=== PATIENT | female | born 1970 | race American Indian/Alaskan Native ===

== ENCOUNTER 2016-12-11 08:34 | Outpatient (CLI) | payer MEDICARE ==
--- NOTE | 2016-12-11 16:19 | PET Report ---
PET/CT:12/11/16 08:34:00 CLINICAL: Breast cancer restaging. RADIOPHARMACEUTICAL: 12.4mCi F18-FDG. COMPARISON: 07/10/16 PET/CT TECHNIQUE- Following intravenous injection of F-18 FDG and an approximately 60 minute uptake period, CT and PET images from the mid skull to the upper thighs were acquired with the patient in the fasted state. No contrast was administered. The CT protocol used for this PET CT study is designed for attenuation correction and anatomic localization of PET abnormalities. This arts administrator or manager CT is not desired to produce and cannot replace, [id number]-[id number]-art diagnostic CT scans with specific imaging protocols for different body parts and indications. Plasma glucose at the time of this test: 109g/dl. The standardized uptake values (SUV) are normalized to patient body weight and indicate the highest activity concentration (SUV max) in a given disease site. FINDINGS: Brain--Physiologic FDG uptake in the visualized regions of the brain. Neck--Physiologic FDG uptake . Chest--Physiologic FDG uptake in mediastinal blood pool and myocardium. Lungs/Pleura/pericardium--New FDG avid pleural-based left upper lobe lung masses with SUV 6.1. New large left pleural effusion. Thoracic nodes--No abnormal uptake. Hepatobiliary--No abnormal uptake. Liver background SUV mean, as a reference for comparing FDG studies, is 4.0 compared to 4.0 on the last exam. No liver mass. Spleen--No abnormal uptake. Pancreas--No abnormal uptake. Adrenal Glands--No abnormal uptake. Kidneys/Ureters/Bladder--No abnormal uptake. Abdominopelvic Nodes--New FDG avid moon hepatis lymphadenopathy. The largest lymph node measures 3.4 x 2.8 cm with SUV 8.4. A second lymph node measures 2.8 x 2.0 cm with SUV 6.2. New para-aortic FDG avid lymphadenopathy with SUV 5.9. Bowel/Peritoneum/Mesentery--No abnormal uptake. Pelvic organs--No abnormal uptake. Bones/Soft Tissues--Previously described bone lesions are radiographically stable. However, new FDG uptake in the sternum and in several vertebral bodies. T4 SUV 6.3, T9 SUV 5.2, and L5 SUV 9.9. 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 New FDG avid retroperitoneal rodolfo metastasis and new FDG avid skeletal lesions.
== END 2016-12-11 08:35 | disposition home or self-care (01) ==
LOC: PET 08:34
PROVIDERS: ATTEND Internal Medicine Hematology & Oncology
DX: C78.02 Secondary malignant neoplasm of left lung (principal); R21 Rash and other nonspecific skin eruption
CPT/HCPCS: 78815; 82962; A9552

== ENCOUNTER 2017-01-02 11:29 | Inpatient (IN) | payer MEDICARE ==
[2017-01-02 12:23] LABS: Basophils % (Auto) 0.1 % (0.0-1.8); Eosinophils % (Auto) 0.2 % (0.0-4.3); Hematocrit 30.8 % (30.3-42.9); Hemoglobin 9.8 gm/dl (10.1-14.3); Mean Corpuscular HGB Conc 32 % (30-34); Mean Corpuscular Hemoglobin 29 pg (28-32); Mean Corpuscular Volume 90 fl (79-97); Red Blood Count 3.41 M/mm3 (3.65-5.03); White Blood Count 5.4 K/mm3 (4.5-11.0)
[2017-01-02 12:26] LABS: Red Cell Distribution Width 21.5 % (13.2-15.2)
[2017-01-02 12:43] LABS: Anion Gap 24 mmol/L; Blood Urea Nitrogen 8 mg/dL (7-17); Carbon Dioxide 20 mmol/L (22-30); Chloride 96.2 mmol/L (98-107); Glucose 92 mg/dL (65-100); Potassium 3.4 mmol/L (3.6-5.0); Sodium 137 mmol/L (137-145)
[2017-01-02 13:02] LABS: Platelet Count 54 K/mm3 (140-440)
--- NOTE | 2017-01-02 14:56 | XRay Report ---
CHEST 2 VIEWS INDICATION: Pain. COMPARISON: None similar. FINDINGS: Frontal and lateral chest radiographs demonstrate hazy left lung opacity/layering fluid, greatest at the base and relatively sparing the apex. Left hemidiaphragm much obscured. Right hemidiaphragm slightly elevated. Clear right lung. Normal cardiomediastinal silhouette. Right chest port tip near the cavoatrial junction, left axillary surgical clips and bilateral breast implants noted. EKG leads. Grossly unremarkable bones. CONCLUSION: Hazy left lung opacity/fluid and other findings, as described. Thank you for the opportunity to participate in this patient's care.
--- NOTE | 2017-01-02 15:41 | Emergency Department Report ---
HPI - General Chief Complaint: Chest Pain Time Seen by Provider: 01/02/17 14:48 - HPI HPI: Room 9 The patient is a 46-year-old female presenting with a chief complaint of chest pain shortness of breath. The patient has a history of breast CVA with brain metastases. Patient is currently on chemotherapy and last received chemotherapy 4 days ago. The patient states she has had nausea vomiting for the past week. Patient was scheduled to receive chemotherapy today however when she arrived she was told that her platelet count was low (53,000) oh subsequently only given IV fluids and antiemetics. Patient states she developed palpitations and chest pain associated with shortness of breath. Patient denies nausea/vomiting or diaphoresis. The patient states his symptoms lasted approximately 30 minutes. The patient states she's never had a stress test or cardiac catheterization Location: Chest, lungs Duration: 30 minutes Quality:. Pain Severity: Moderate Modifying factors: [see above] Context: [see above] Mode of transportation: [not driving] ED Past Medical Hx - Past Medical History Previous Medical History?: Yes Hx Hypertension: Yes (does not take medication for this) Hx of Cancer: Yes (Breast with mets to Brain) - Surgical History Past Surgical History?: Yes Hx Breast Surgery: Yes (Double mastectomy) - Family History Family history: no significant - Social History Smoking Status: Never Smoker Substance Use Type: None - Medications Home Medications: Home Medications Medication Instructions Recorded Confirmed Last Taken Type Ibuprofen [Motrin 800 MG tab] 800 mg PO Q8H PRN 01/02/17 01/02/17 Unknown History Morphine ER [Ms Contin ER] 30 mg PO BID 01/02/17 01/02/17 Unknown History Ondansetron [Zofran TAB] 8 mg PO Q8H PRN 01/02/17 01/02/17 Unknown History Promethazine [Phenergan TAB] 25 mg PO Q6H PRN 01/02/17 01/02/17 Unknown History ED Review of Systems ROS: Stated complaint: CHEST TIGHTNESS/L SIDE NUMBNESS Other details as noted in HPI Comment: All other systems reviewed and negative Constitutional: denies: chills, fever Eyes: denies: eye pain, eye discharge, vision change ENT: denies: ear pain, throat pain Respiratory: shortness of breath Cardiovascular: chest pain, palpitations Endocrine: no symptoms reported Gastrointestinal: nausea, vomiting Genitourinary: denies: urgency, dysuria, discharge Musculoskeletal: denies: back pain, joint swelling, arthralgia Skin: denies: rash, lesions Neurological: denies: headache, weakness, paresthesias Psychiatric: denies: anxiety, depression Hematological/Lymphatic: denies: easy bleeding, easy bruising Physical Exam - Physical Exam Vital Signs: Vital Signs 01/02/17 01/02/17 11:50 11:59 Pulse Rate 109 H Respiratory 16 16 Rate Blood Pressure 134/84 Blood Pressure 134/84 [Left] O2 Sat by Pulse 98 98 Oximetry Physical Exam: GENERAL: The patient is well-developed well-nourished female lying on stretcher not appearing to be in acute distress. [] HEENT: Normocephalic. Atraumatic. Extraocular motions are intact. Patient has moist mucous membranes. NECK: Supple. Trachea midline CHEST/LUNGS: Clear to auscultation. There is no respiratory distress noted. HEART/CARDIOVASCULAR: Regular. There is no tachycardia. There is no gallop rub or murmur. ABDOMEN: Abdomen is soft, nontender. Patient has normal bowel sounds. There is no abdominal distention. SKIN: There is no rash. There is no edema. There is no diaphoresis. NEURO: The patient is awake, alert, and oriented. The patient is cooperative. The patient has normal speech MUSCULOSKELETAL: There is no evidence of acute injury. ED Course Vital Signs 01/02/17 01/02/17 11:50 11:59 Pulse Rate 109 H Respiratory 16 16 Rate Blood Pressure 134/84 Blood Pressure 134/84 [Left] O2 Sat by Pulse 98 98 Oximetry ED Medical Decision Making - Lab Data Result diagrams: 01/02/17 12:09 01/02/17 12:09 Laboratory Tests 01/02/17 01/02/17 01/02/17 12:09 12:09 14:49 WBC 5.4 RBC 3.41 L Hgb 9.8 L Hct 30.8 MCV 90 MCH 29 MCHC 32 RDW 21.5 H Plt Count 54 L Lymph % (Auto) 10.5 L [place] % (Auto) 12.1 H Eos % (Auto) 0.2 Baso % (Auto) 0.1 Lymph # 0.6 L [place] # 0.7 Eos # 0.0 Baso # 0.0 Seg Neutrophils % 77.1 H Seg Neutrophils # 4.2 Sodium 137 Potassium 3.4 L Chloride 96.2 L Carbon Dioxide 20 L Anion Gap 24 BUN 8 Creatinine 0.8 Estimated GFR > 60 BUN/Creatinine Ratio 10.00 Glucose 92 Calcium 7.0 L Troponin T < 0.010 0.017 - EKG Data -: EKG Interpreted by Me EKG shows normal: sinus rhythm Rate: normal - EKG Data When compared to previous EKG there are: previous EKG unavailable Interpretation: nonspecific ST-T wave robel (T-wave inversions in leads V2, V3) - Radiology Data Radiology results: report reviewed (, VQ scan), image reviewed (chest x-ray, VQ scan) interpreted by me: Chest x-ray-left lower lobe haziness. No pneumothorax VQ scan (read by radiologist)-low probability - Differential Diagnosis ACS, PE, pericarditis, pneumothorax, pleural effusion Critical care attestation.: If time is entered above; I have spent that time in minutes in the direct care of this critically ill patient, excluding procedure time. ED Disposition Clinical Impression: Chest pain, Pleural effusion, T wave inversion in EKG Disposition: OP ADMITTED IP TO THIS HOSP Is pt being admited?: Yes Does the pt Need Aspirin: Yes Condition: Fair Instructions: Chest Pain (ED) Referrals: PRIMARY CARE, [Primary Care Provider] - 3-5 Days Time of Disposition: 18:52 (hospitalist paged)
--- NOTE | 2017-01-02 17:35 | Admit Criteria Form ---
Admission Criteria Documentation: CARDIOLOGY GRG Clinical Indications for Admission to Inpatient Care ( Place 'X' for any and all applicable criteria): Hospital admission is needed for appropriate care of the patient because of ANY ONE of the following (1): [ ] I. Hemodynamic instability as indicated by ALL of the following (1)(2)(3) (4)(5) [ ]a) Vital signs or other findings not as expected for chronic patient condition or baseline [ ]b) Instability indicated by ANY ONE of the following: [ ]i) Hypotension [ ]ii) Symptomatic Tachycardia unresponsive to treatment ( e.g., analgesia, fluids, sedation as indicated) [ ]iii) Inadequate perfusion indicated by ANY ONE of the following: [ ] 1) Lactic acidosis (> 2 mmol/L) [ ] 2) New abnormal capillary refill (> 3 seconds) [ ] 3) Reduced urine output [ ] 4) New altered mental status [ ]iv) Orthostatic vital sign changes unresponsive to treatment (e.g., fluids) [ ]v) IV inotropic or vasopressor medication required to maintain adequate blood pressure or perfusion [ ] II. Severe heart failure as indicated by ANY ONE of the following(17)(18) [ ]a) Respiratory distress [ ]b) Hypotension [ ]c) Anasarca (refractory to outpatient therapy) [ ]d) Cardiac arrhythmias of immediate concern [ ]e) Myocardial ischemia [ ] III. Cardiac arrhythmias or findings of immediate concern indicated by ANY ONE of the following (19)(20): [ ] a) Heart rhythms that are inherently dangerous or unstable indicated by ANY ONE of the following (21)(22)(23): [ ] i) Resuscitated ventricular fibrillation or cardiac arrest [ ] ii) Ventricular escape rhythm [ ] iii) Sustained ventricular tachycardia (30 seconds or more of ventricular rhythm at greater than 100 beats per minute) [ ] iv) Nonsustained ventricular tachycardia and ANY ONE of the following: [ ] 1) Suspected cardiac ischemia as cause or consequence of ventricular tachycardia [ ] 2) In setting of acute myocarditis [ ] b) Unstable cardiac conduction defects indicated by ANY ONE of the following(23)(24)(25) [ ] i) Type II second-degree atrioventricular block [ ]ii) Third-degree atrioventricular block [ ]iii) New-onset left bundle branch block with suspected myocardial ischemia [ ]c) Any heart rhythm and ANY ONE of the following (21)(22)(26)(27) (28) [ ] i) Continuous long-term ECG monitoring needed (e.g., initiation of drug requiring monitoring for more than 24 hours) [ ] ii) Patient has automatic implanted cardioverter defibrillator that is repeatedly firing, malfunctioning, or in need of immediate adjustment of settings beyond the scope of ambulatory or observation care [ ]d) Heart rhythms of concern due to ANY ONE of the following: [ ] i) Hypotension [ ] ii) Respiratory distress [ ] iii) Association with other significant symptoms (e.g., bradycardia with syncope or ongoing dizziness, supraventricular tachycardia with chest pain (14)(15)(17) [ ] IV. Monitoring for cardiac contusion beyond the scope of observation care needed [A](30)(31)(32) [ ] V. Surgical or device complication (e.g., valve replacement complication , pacemaker dysfunction) (35)(41)(44)(45)(46) [ ] . Inpatient palliative care needed. [B](49) Also use Inpatient Palliative Care Criteria [ ] VII. Nonbacterial thrombotic (marantic) endocarditis (36)(43)(47)(48) [X] VIII. Cardiology condition, symptom, or finding for which emergency and observation care has failed or are not considered appropriate. [ ] IX. Acute valvular disease requiring inpatient as indicated by ANY ONE of the following (41) [ ]a) Acute valvular regurgitation (42) [ ]b) Noninfectious valvulitis (43) [ ]c) Obstructive valve thrombosis [ ]d) Paravalvular leak [ ]e) Other significant valvular disorder remaining after emergency or observation level of care (as appropriate) [ ]X. Pericardial disease requiring inpatient treatment as indicated by ANY ONE of the following (33)(34)(35)(36)(37) [ ]a) Suspected tamponade (38)(39)(40) [ ]b) Hemopericardium [ ]c) Other significant pericardial disorder remaining after emergency or observation level of care (as appropriate) [ ] XI. Cardiac ischemia beyond scope of emergency and observation care. [ ] XII. Hypertension requiring inpatient treatment as indicated by ANY ONE of the following (6)(7)(8) [ ]a) SBP greater than 220 mm Hg or DBP greater than 120 mmHg despite treatment [ ]b) SBP greater than 140 mm Hg or DBP greater than 100 mm Hg with evidence of acute end organ damage as indicated by ANY ONE of the following [ ] i) Altered mental status [ ] ii) Acute renal failure as indicated by new onset of ANY ONE of the following (9)(10)(11)(12)(13) [ ]1) 3-fold rise in serum creatinine from baseline [ ]2) Serum creatinine greater than 4 mg/dL ( 354 micromoles/L) with acute rise greater than 0.5 mg/dL (44.2 micromoles/L) [ ]3) Reduction of more than 75% in estimated glomerular filtration rate from baseline [ ]4) Estimated glomerular filtration rate less than 35 mL/min/1.73m2 (0.59 mL/sec/1.73m2) in child up to 18 years of age [ ]5) Cessation of urine output indicated by ALL of the following [ ]A. Adequate volume status [ ]B. Inadequate urine output as indicated by ANY ONE of the following [ ]a. Urine output less than 0.3 mL/kg/hr for 24 hours [ ]b. Anuria (urine output less than 0.1 mL/kg/hr) for 12 hours [ ] iii) Aortic dissection [ ] iv) Myocardial Ischemia [ ] v) Left ventricular heart failure [ ]vi) Retinal Hemorrhage [ ]vii) Other significant finding [ ]c) Hypertension in child requiring inpatient treatment as indicated by ALL of the following(14)(15)(16) [ ] i) Outpatient treatment not effective, not available, or not appropriate [ ]ii) SBP or DBP greater than 95th percentile for age [ ]iii) Evidence of acute end organ damage as indicated by ANY ONE of the following [ ]1) Altered mental status [ ]2) Acute renal failure as indicated by new onset of ANY ONE of the following(9)(10)(11)(12)(13) [ ]A. 3-fold rise in serum creatinine from baseline [ ]B. Serum creatinine greater than 4 mg/dL (354 micromoles/L) with acute rise greater than 0.5 mg/dL (44.2 micromoles/L) [ ]C. Reduction of more than 75% in estimated glomerular filtration rate from baseline [ ]D. Estimated glomerular filtration rate less than 35 mL/min/1.73m2 (0.59 mL/sec/1.73m2) in child up to 18 years of age [ ]E. Cessation of urine output indicated by ALL of the following [ ]a. Adequate volume status [ ]b. Inadequate urine output as indicated by ANY ONE of the following [ ]i) Urine output less than 0.3 mL/kg/hr for 24 hours [ ]ii) Anuria ( urine output less than 0.1 mL/kg/hr) for 12 hours [ ]3) Severe headache [ ]4) Visual disturbance [ ]5) Retinal hemorrhage [ ]6) Other significant finding [ ]XIII. Complications of transplanted heart indicated by ANY ONE of the following(61): [ ]a) Acute graft rejection requiring inpatient management (eg, intravenous immunosuppression)(62)(63) [ ]b) Acute graft heart failure indicated by ANY ONE of the following(64): [ ]i) Hemodynamic instability [ ]ii) Cardiac arrhythmias of immediate concern [ ]iii) Pulmonary edema that is very severe (eg, mechanical ventilation needed, imminent or likely, need for 100% oxygen to keep oxygen saturation above 90%) [ ]iv) Pulmonary edema that is persistent as indicated by ALL of the following: [ ]1) New need for oxygen therapy to keep oxygen saturation above 90% (or increased FiO2 need from baseline) [ ]2) Has not improved sufficiently with emergency department or observation care IV diuretics or other heart failure treatments[E] [ ]v) Altered mental status that is severe or persistent [ ]vi) Increased creatinine (new on laboratory test) with reduction of more than 50% in estimated glomerular filtration rate from baseline [ ]vii) Progressively (ongoing) rising creatinine (known from past laboratory test) with reduction of more than 25% in estimated glomerular filtration rate from baseline [ ]viii) Acute renal failure [ ]ix) Acute peripheral ischemia (eg, examination shows pulseless, cool, mottled, or cyanotic extremity) [ ]x) Pulmonary artery catheter monitoring needed [ ]xi) Other sign or symptom of heart failure requiring inpatient treatment (ie, too severe or not responsive to outpatient and observation care treatment) [ ]c) Infection requiring inpatient management (eg, Hemodynamic instability, need for intravenous antimicrobial treatment)(66)(67)(68)(69)(70) [ ]d) Cardiac allograft vasculopathy requiring inpatient management ( eg evidence of cardiac ischemia)(71) [ ]e) Other complication of transplanted heart (eg, stroke, severe pulmonary hypertension, severe valvular dysfunction) requiring inpatient management(72) The original [facility] [employer] content created by [employer] has been revised. The portions of the content which have been revised are identified through the use of italic text or in bold, and [facility] has neither reviewed nor approved the modified material. All other unmodified content is copyright [facility] [employer]. Please see references footnoted in the original [facility] [employer] edition 2016 Admission Criteria Met: Yes
--- NOTE | 2017-01-02 18:49 | Nuclear Medicine Report ---
FINAL REPORT EXAM: NM LUNG SCAN PERF/VENT HISTORY: chest pain, shortness of breath . Prior history of breast cancer. Recent thoracentesis 1 week ago. TECHNIQUE: Ventilation imaging was performed in the posterior projection. Perfusion imaging of the lungs was performed in multiple planar projections. Correlation with a chest x-ray dated 01/02/2017 was made. DOSE: 15.0 millicuries Xe-133 gas; 5.0 millicuries 99m Tc MAA given IV. PRIORS: None. FINDINGS: There is a nonsegmental defect in the left posterior lung base consistent with a pleural effusion seen on x-ray. Otherwise, the tracer distribution on perfusion imaging is homogeneous throughout. No unmatched segmental or subsegmental perfusion defects are identified to suggest the presence of pulmonary embolism. Incidental note is made of rounded with repeat defects in the anterior projection only each corresponding to the bilateral breast implants on the chest x-ray. The ventilation study is also homogeneous and within normal limits. No evidence for gas trapping is seen. IMPRESSION: Low probability v/Q scan. A nonsegmental perfusion defect in the left posterior lung inch base is likely associated with the pleural effusion seen on x-ray.
[2017-01-02] MEDS ORDERED: ASPIRIN PO ONE (18:52)
[2017-01-02] MEDS ORDERED: NITRO-BID 2% TP ONE (18:57)
--- NOTE | 2017-01-03 05:16 | Event Note ---
Date: 01/02/17 See H/p in reports Persistent vomiting Chest pain L -Breast ca followed by bilateral mastectomy On Chemotherapy and XRT Hypokalemia
[2017-01-03] MEDS ORDERED: DILAUDID IV PRN (05:24)
[2017-01-03] MEDS ORDERED: ZOFRAN IV PRN (05:24)
[2017-01-03] MEDS ORDERED: SODIUM CHLORIDE FLUSH SYRINGE 10 ML IV PRN (05:25)
[2017-01-03] MEDS ORDERED: D5NS 1,000 ML IV SCH (06:00)
--- NOTE | 2017-01-03 07:29 | History and Physical Report ---
CHIEF COMPLAINT: 1. Nausea, vomiting. 2. Left-sided chest pain. 3. Shortness of breath. HISTORY OF PRESENT ILLNESS: This is a 46-year-old female with breast cancer, with bilateral mastectomy, undergoing chemotherapy and radiation therapy, who comes in for increasing shortness of breath and left-sided Chest pain. Also, nausea, and vomiting 3-4 times since a.m. The patient is currently on chemotherapy and received chemotherapy 4 days ago. The patient has been having nausea and vomiting for the past one week. Vomiting over 3-4 times. Also developed retrosternal chest pain secondary to vomiting. The patient feels that she is dehydrated. No fever, no chills. PAST MEDICAL HISTORY: Significant for left breast cancer with metastasis to the brain. Bilateral mastectomy. PAST SURGICAL HISTORY: Bilateral mastectomy. FAMILY HISTORY: None significant. SOCIAL HISTORY: Does not smoke. No alcohol, no recreational drugs. CURRENT MEDICATIONS: Morphine 30 mg twice a day, ibuprofen 800 mg p.o. q.8h., Zofran 8 mg p.o. q.8h p.r.n. REVIEW OF SYSTEMS: GENERAL: The patient has weight loss and nausea and vomiting, associated also with retrosternal chest pain. Otherwise, review of systems is essentially negative. All systems reviewed. PHYSICAL EXAMINATION: GENERAL: Middle-aged female, cooperative during examination. VITAL SIGNS: Blood pressure is 127/89, temperature is 98, pulse is 70, respirations are 16. HEENT: Dry mucous membranes. NECK: Supple, no lymphadenopathy, no thyromegaly. LUNGS: Clear to auscultation and percussion. Good air entry. CARDIOVASCULAR: S1, S2 heard. No gallop, no murmur, no rub. Apical impulse in left fifth intercostal space and midclavicular line. ABDOMEN: Soft and benign. No hepatosplenomegaly. No guarding, no rigidity. Hernial orifices are normal. EXTREMITIES: Good pedal pulses. No pedal edema. CENTRAL NERVOUS SYSTEM: Alert and oriented x 4, nonfocal exam. LABORATORY DATA: Significant for white count of 5400, H and H is 9.8 and 30.8, platelet count is 54,000. Potassium is 3.4, calcium is 1.0, BUN and creatinine are 8 and 0.8. Chest x-ray shows normal chest x-ray with left lower lobe haziness present. Electrolytes are normal. ASSESSMENT AND PLAN: 1. Chest pain, rule out myocardial infarction, chest pain protocol. 2. Left lower lobe pneumonia. IV antibiotics. 3. Dehydration secondary to persistent vomiting. IV fluids. 4. Breast cancer, as per oncology. Will be treated as outpatient. 5. DVT prophylaxis, Lovenox 40 mg subcutaneous daily. JOB# [id number] VSM/NTS
[2017-01-03 08:04] LABS: Creatine Kinase 92 units/L (30-135)
[2017-01-03] MEDS: LEVAQUIN 750MG/150ML 750 MG/150 ML BAG IV SCH (11:57)
--- NOTE | 2017-01-03 12:59 | Progress Note ---
Assessment and Plan Assessment and plan: Star is a 46-year-old woman with metastatic Breast ca with brain mets, on chemotherapy who presents with chest pain found to have pneumonia 1. Chest pain Most likely due to pneumonia, VQ scan low probability for embolus, Stress test shows partially fixed apical defect, obtain cardiology consult 2. Pneumonia Continue Levaquin 3. Thrombocytopenia This is most likely due to toxicity from chemotherapy, continue to monitor platelet counts, it is recovering Avoid blood thinners, give SCDs 4. Hypokalemia Replete and recheck History Interval history: She has slight chest pressure in in left chest, it is improving Hospitalist Physical - Physical exam Narrative exam: General: Patient appears well in no distress HEENT: MMM, EOMI cardiac: S1-S2 heard lungs: clear to auscultation, abdomen: soft, nontender, nondistended bowel sounds positive extremities: LUE lymphedema, Skin: hyperpigmented rash on Left arm and left breast Neuro: no focal deficit Psych: appropriate behavior and mood, cognition intact - Constitutional Vitals: Temp Pulse Resp BP Pulse Ox 98.4 F 80 18 92/58 98 01/03/17 08:50 01/03/17 08:50 01/03/17 08:50 01/03/17 08:50 01/03/17 10:37 Results - Labs CBC & Chem 7: 01/04/17 06:00 01/04/17 06:00 Labs: Laboratory Last Values WBC 5.4 K/mm3 (4.5-11.0) 01/02/17 12:09 RBC 3.41 M/mm3 (3.65-5.03) L 01/02/17 12:09 Hgb 9.8 gm/dl (10.1-14.3) L 01/02/17 12:09 Hct 30.8 % (30.3-42.9) 01/02/17 12:09 MCV 90 fl (79-97) 01/02/17 12:09 MCH 29 pg (28-32) 01/02/17 12:09 MCHC 32 % (30-34) 01/02/17 12:09 RDW 21.5 % (13.2-15.2) H 01/02/17 12:09 Plt Count 54 K/mm3 (140-440) L 01/02/17 12:09 Lymph % (Auto) 10.5 % (13.4-35.0) L 01/02/17 12:09 [place] % (Auto) 12.1 % (0.0-7.3) H 01/02/17 12:09 Eos % (Auto) 0.2 % (0.0-4.3) 01/02/17 12:09 Baso % (Auto) 0.1 % (0.0-1.8) 01/02/17 12:09 Lymph # 0.6 K/mm3 (1.2-5.4) L 01/02/17 12:09 [place] # 0.7 K/mm3 (0.0-0.8) 01/02/17 12:09 Eos # 0.0 K/mm3 (0.0-0.4) 01/02/17 12:09 Baso # 0.0 K/mm3 (0.0-0.1) 01/02/17 12:09 Seg Neutrophils % 77.1 % (40.0-70.0) H 01/02/17 12:09 Seg Neutrophils # 4.2 K/mm3 (1.8-7.7) 01/02/17 12:09 Sodium 137 mmol/L (137-145) 01/02/17 12:09 Potassium 3.4 mmol/L (3.6-5.0) L 01/02/17 12:09 Chloride 96.2 mmol/L (98-107) L 01/02/17 12:09 Carbon Dioxide 20 mmol/L (22-30) L 01/02/17 12:09 Anion Gap 24 mmol/L 01/02/17 12:09 BUN 8 mg/dL (7-17) 01/02/17 12:09 Creatinine 0.8 mg/dL (0.7-1.2) 01/02/17 12:09 Estimated GFR > 60 ml/min 01/02/17 12:09 BUN/Creatinine Ratio 10.00 % 01/02/17 12:09 Glucose 92 mg/dL (65-100) 01/02/17 12:09 Calcium 7.0 mg/dL (8.4-10.2) L 01/02/17 12:09 Total Creatine Kinase 92 units/L (30-135) 01/03/17 05:25 CK-MB (CK-2) 3.0 ng/mL (0.0-4.0) 01/03/17 05:25 CK-MB (CK-2) Rel Index 3.2 (0-4) 01/03/17 05:25 Troponin T < 0.010 ng/mL (0.00-0.029) 01/03/17 05:25
[2017-01-03] MEDS ORDERED: TYLENOL PO PRN (16:15)
[2017-01-03] MEDS: PROTONIX PO SCH (17:03)
[2017-01-03] MEDS: MS CONTIN ER PO SCH (23:51)
[2017-01-04 06:55] LABS: Basophils % (Auto) 0.3 % (0.0-1.8); Eosinophils % (Auto) 0.4 % (0.0-4.3); Hematocrit 27.9 % (30.3-42.9); Hemoglobin 8.9 gm/dl (10.1-14.3); Mean Corpuscular HGB Conc 32 % (30-34); Mean Corpuscular Hemoglobin 29 pg (28-32); Mean Corpuscular Volume 90 fl (79-97); Red Blood Count 3.11 M/mm3 (3.65-5.03); White Blood Count 4.1 K/mm3 (4.5-11.0)
[2017-01-04 06:59] LABS: Platelet Count 76 K/mm3 (140-440); Red Cell Distribution Width 21.6 % (13.2-15.2)
[2017-01-04 07:14] LABS: Anion Gap 23 mmol/L; BUN/Creatinine Ratio 8.57; Blood Urea Nitrogen 6 mg/dL (7-17); Calcium 6.8 mg/dL (8.4-10.2); Carbon Dioxide 21 mmol/L (22-30); Chloride 99.3 mmol/L (98-107); Glucose 75 mg/dL (65-100); Magnesium 1.8 mg/dL (1.7-2.3); Potassium 3.3 mmol/L (3.6-5.0); Sodium 140 mmol/L (137-145)
[2017-01-04] MEDS ORDERED: LEXISCAN IV ONE ×2 (08:10→08:38)
[2017-01-04] MEDS: LEVAQUIN 750MG/150ML 750 MG/150 ML BAG IV SCH (10:53)
[2017-01-04] MEDS: K-DUR PO SCH (10:54)
[2017-01-04] MEDS: PROTONIX PO SCH (10:55)
[2017-01-04] MEDS: MS CONTIN ER PO SCH ×2 (10:55→22:03)
--- NOTE | 2017-01-04 12:09 | Treadmill Report ---
NUCLEAR STRESS TEST REPORT DESCRIPTION OF PROCEDURE: The patient is brought to the Cardiology lab. The patient had a nuclear stress test with administration of Lexiscan, which he tolerated well. Post-stress images reveal fairly homogeneous perfusion except in the apex as well as mildly in the mid anterior wall. There is minimal improvement noted during rest. Accompanying gated study shows excellent systolic function with a calculated ejection fraction of 70%. Dual isotope study shows mostly a fixed small apical defect of questionable significance. IMPRESSION: 1. Mildly abnormal nuclear stress test. 2. Mostly fixed apical defect is noted with minimal improvement during rest. This may indicate old apical infarction with associated mild ischemia. No large areas of ischemia is detected. Excellent systolic function is noted with ejection fraction of 71%. Suggest clinical correlation. JOB# [id number] RUI/NTS
--- NOTE | 2017-01-04 16:06 | Progress Note ---
Assessment and Plan Assessment and plan: Star is a 46-year-old woman with metastatic Breast ca with brain mets, on chemotherapy who presents with chest pain found to have pneumonia 1. Chest pain Most likely due to pneumonia, VQ scan low probability for embolus, Stress test shows partially fixed apical defect, obtain cardiology consult 2. Pneumonia Continue Levaquin 3. Thrombocytopenia This is most likely due to toxicity from chemotherapy, continue to monitor platelet counts, it is recovering Avoid blood thinners, give SCDs 4. Hypokalemia Replete and recheck History Interval history: She has slight chest pressure in in left chest, it is improving Hospitalist Physical - Physical exam Narrative exam: General: Patient appears well in no distress HEENT: MMM, EOMI cardiac: S1-S2 heard lungs: clear to auscultation, abdomen: soft, nontender, nondistended bowel sounds positive extremities: LUE lymphedema, Skin: hyperpigmented rash on Left arm and left breast Neuro: no focal deficit Psych: appropriate behavior and mood, cognition intact - Constitutional Vitals: Temp Pulse Resp BP Pulse Ox 97.8 F 94 H 18 115/81 100 01/04/17 15:08 01/04/17 15:08 01/04/17 15:08 01/04/17 15:08 01/04/17 10:00 Results - Labs CBC & Chem 7: 01/04/17 06:00 01/04/17 06:00 Labs: Laboratory Last Values WBC 4.1 K/mm3 (4.5-11.0) L 01/04/17 06:00 RBC 3.11 M/mm3 (3.65-5.03) L 01/04/17 06:00 Hgb 8.9 gm/dl (10.1-14.3) L 01/04/17 06:00 Hct 27.9 % (30.3-42.9) L 01/04/17 06:00 MCV 90 fl (79-97) 01/04/17 06:00 MCH 29 pg (28-32) 01/04/17 06:00 MCHC 32 % (30-34) 01/04/17 06:00 RDW 21.6 % (13.2-15.2) H 01/04/17 06:00 Plt Count 76 K/mm3 (140-440) L 01/04/17 06:00 Lymph % (Auto) 17.7 % (13.4-35.0) 01/04/17 06:00 [place] % (Auto) 14.5 % (0.0-7.3) H 01/04/17 06:00 Eos % (Auto) 0.4 % (0.0-4.3) 01/04/17 06:00 Baso % (Auto) 0.3 % (0.0-1.8) 01/04/17 06:00 Lymph # 0.7 K/mm3 (1.2-5.4) L 01/04/17 06:00 [place] # 0.6 K/mm3 (0.0-0.8) 01/04/17 06:00 Eos # 0.0 K/mm3 (0.0-0.4) 01/04/17 06:00 Baso # 0.0 K/mm3 (0.0-0.1) 01/04/17 06:00 Seg Neutrophils % 67.1 % (40.0-70.0) 01/04/17 06:00 Seg Neutrophils # 2.7 K/mm3 (1.8-7.7) 01/04/17 06:00 Sodium 140 mmol/L (137-145) 01/04/17 06:00 Potassium 3.3 mmol/L (3.6-5.0) L 01/04/17 06:00 Chloride 99.3 mmol/L (98-107) 01/04/17 06:00 Carbon Dioxide 21 mmol/L (22-30) L 01/04/17 06:00 Anion Gap 23 mmol/L 01/04/17 06:00 BUN 6 mg/dL (7-17) L 01/04/17 06:00 Creatinine 0.7 mg/dL (0.7-1.2) 01/04/17 06:00 Estimated GFR > 60 ml/min 01/04/17 06:00 BUN/Creatinine Ratio 8.57 % 01/04/17 06:00 Glucose 75 mg/dL (65-100) 01/04/17 06:00 Calcium 6.8 mg/dL (8.4-10.2) L 01/04/17 06:00 Magnesium 1.8 mg/dL (1.7-2.3) 01/04/17 06:00 Total Creatine Kinase 92 units/L (30-135) 01/03/17 05:25 CK-MB (CK-2) 3.0 ng/mL (0.0-4.0) 01/03/17 05:25 CK-MB (CK-2) Rel Index 3.2 (0-4) 01/03/17 05:25 Troponin T < 0.010 ng/mL (0.00-0.029) 01/03/17 05:25
[2017-01-05] MEDS ORDERED: LEVAQUIN PO SCH (11:00)
[2017-01-05] MEDS: K-DUR PO SCH (11:31)
[2017-01-05] MEDS: MS CONTIN ER PO SCH (11:31)
[2017-01-05] MEDS: PROTONIX PO SCH (11:31)
[2017-01-05] MEDS: LEVAQUIN 750MG/150ML 750 MG/150 ML BAG IV SCH (11:34)
--- NOTE | 2017-01-05 11:50 | Consultation ---
History of Present Illness Consult date: 01/05/17 Requesting physician: SIERRA DOWNS Consult reason: chest pain, other (abnormal stress test) History of present illness: The patient is a 46 year old female with a history of metastatic breast CA who is currently undergoing chemotherapy who presented for evaluation of shortness of breath and generally not feeling well. She states that she has been experiencing nausea and vomiting for the past several days. She was scheduled to receive chemotherapy last Thursday however when she arrived she was told that her platelet count was too low for chemo and was subsequently only given IV fluids and antiemetics. She states that after she received the antiemetics, she started to feel short of breath and just generally did not feel well. She denies any chest pain or palpitations. Troponin negative x 3. Lexiscan thallium stress test done yesterday showed a mostly fixed apical defect with minimal improvement during rest, overall no significant ischemia, EF 71%. Currently she states she feels weak but denies any chest pain or shortness of breath. Past History Past Medical History: hypertension, other (metastatic breast CA) Past Surgical History: mastectomy Social history: denies: smoking, alcohol abuse, prescription drug abuse, IV drug use, full code Family history: no significant family history Medications and Allergies Allergies Allergy/AdvReac Type Severity Reaction Status Date / Time No Known Allergies Allergy Verified 01/02/17 11:56 Home Medications Medication Instructions Recorded Confirmed Last Taken Type Ibuprofen [Motrin 800 MG tab] 800 mg PO Q8H PRN 01/02/17 01/02/17 Unknown History Morphine ER [Ms Contin ER] 30 mg PO BID 01/02/17 01/02/17 Unknown History Ondansetron [Zofran TAB] 8 mg PO Q8H PRN 01/02/17 01/02/17 Unknown History Promethazine [Phenergan TAB] 25 mg PO Q6H PRN 01/02/17 01/02/17 Unknown History Active Meds: Active Medications Acetaminophen (Tylenol) 500 mg PO Q4H PRN PRN Reason: Pain, Mild (1-3) Last Admin: 01/03/17 23:51 Dose: 500 mg Hydromorphone HCl (Dilaudid) 2 mg IV Q3H PRN PRN Reason: Pain , Severe (7-10) Dextrose/Sodium Chloride (D5ns) 1,000 mls @ 100 mls/hr IV DIRECT [facility] Levofloxacin (Levaquin) 750 mg PO Q24HR [facility] Last Admin: 01/05/17 11:31 Dose: 750 mg Morphine Sulfate (Ms Contin Er) 30 mg PO BID [facility] Last Admin: 01/05/17 11:31 Dose: 30 mg Ondansetron HCl (Zofran) 4 mg IV Q3H PRN PRN Reason: Nausea And Vomiting Pantoprazole Sodium (Protonix) 20 mg PO QDAY [facility] Last Admin: 01/05/17 11:31 Dose: 20 mg Potassium Chloride (K-Dur) 40 meq PO QDAY [facility] Last Admin: 01/05/17 11:31 Dose: 40 meq Sodium Chloride (Sodium Chloride Flush Syringe 10 Ml) 10 ml IV PRN PRN PRN Reason: LINE FLUSH Review of Systems Constitutional: fatigue, weakness, no fever, no chills Ears, nose, mouth and throat: no nasal congestion, no nasal discharge, no sinus pressure Cardiovascular: shortness of breath, no chest pain, no palpitations Respiratory: shortness of breath, no cough, no congestion, no wheezing Gastrointestinal: nausea, vomiting, no abdominal pain Genitourinary Female: no dysuria, no urgency Musculoskeletal: no neck stiffness, no neck pain, no myalgias Integumentary: no rash, no pruritis Neurological: no parathesias, no headaches Endocrine: no cold intolerance, no heat intolerance Hematologic/Lymphatic: no easy bruising, no easy bleeding Allergic/Immunologic: no urticaria, no wheezing Physical Examination Vital Signs Pulse Resp BP Pulse Ox 109 H 16 134/84 98 01/02/17 11:50 01/02/17 11:50 01/02/17 11:50 01/02/17 11:50 General appearance: no acute distress HEENT: Positive: Normocephaly, Mucus Membranes Moist Neck: Positive: neck supple, trachea midline Cardiac: Positive: Reg Rate and Rhythm, S1/S2 Lungs: Positive: Decreased Breath Sounds Neuro: Positive: Grossly Intact Abdomen: Positive: Soft, Active Bowel Sounds. Negative: Tender Skin: Positive: Clear. Negative: Rash Extremities: Present: normal. Absent: edema Results 01/04/17 06:00 01/04/17 06:00 - Imaging and Cardiology EKG: image reviewed EKG interpretations - Telemetry EKG Rhythm: Sinus Rhythm Assessment and Plan Mildly abnormal stress test 01/04/17: mostly fixed apical defect with minimal improvement during rest, overall no significant ischemia, EF 71% no chest pain troponin negative x 3 Shortness of breath-->likely due to PNA/pleural effusion Pneumonia abx. per primary Metastatic breast CA Anemia Thrombocytopenia Given atypical symptoms and only minimal ischemia on stress MPI, recommend continuing medical management. The patient has been seen in conjunction with Dr. Garnett who agrees with the assessment and plan of care. Thank you Dr. Downs for allowing us to participate in the care of this patient.
--- NOTE | 2017-01-05 15:09 | Discharge Summary ---
Providers - Providers Date of Admission: 01/02/17 18:53 Attending physician: SIERRA DIAMOND MD 01/03/17 Consult to Cardiac Rehabilitation [CONS] Routine Reason For Exam: Phase I 01/04/17 16:00 Consult to Physician [CONS] Routine Consulting Provider: KYLAH BROWN Reason For Exam: abnormal stress test Place consult to:: [facility] Notified:: a service Phone number called:: [phone] Was contact made?: Yes If yes, spoke with:: sahil Time called:: 16:55 Primary care physician: KETTLE FIRER Hospitalization Condition: Fair Hospital course: Star is a 46-year-old woman with metastatic Breast ca with brain mets, on chemotherapy who presents with chest pain found to have pneumonia 1. Chest pain Most likely due to pneumonia, VQ scan low probability for embolus, Stress test shows partially fixed apical defect, obtain cardiology consult 2. Pneumonia Continue Levaquin 3. Thrombocytopenia This is most likely due to toxicity from chemotherapy, continue to monitor platelet counts, it is recovering Avoid blood thinners, give SCDs 4. Hypokalemia Replete and recheck Disposition: DISCHARGED TO HOME OR SELFCARE Time spent for discharge: 35 minutes Core Measure Documentation - Palliative Care Palliative Care/ Comfort Measures: Not Applicable - Core Measures Any of the following diagnoses?: none Exam - Physical Exam Narrative exam: General: Patient appears well in no distress HEENT: MMM, EOMI cardiac: S1-S2 heard lungs: clear to auscultation, abdomen: soft, nontender, nondistended bowel sounds positive extremities: LUE lymphedema, Skin: hyperpigmented rash on Left arm and left breast Neuro: no focal deficit Psych: appropriate behavior and mood, cognition intact - Constitutional Vitals: Temp Pulse Resp BP Pulse Ox 97.7 F 85 18 94/66 94 01/05/17 09:52 01/05/17 11:00 01/05/17 09:52 01/05/17 09:52 01/05/17 09:52 Plan Follow up with: PRIMARY MD FELICIA [Primary Care Provider] - 3-5 Days Prescriptions: Levofloxacin [Levaquin TAB] 750 mg PO Q24HR #5 tablet Pantoprazole [Protonix TAB] 20 mg PO QDAY #30 tablet. Potassium Chloride [K-Dur] 20 meq PO QDAY #10 tablet
[2017-01-05] MEDS ORDERED: FLUSH HEPARIN IV ONE (17:05)
[2017-01-05 17:53] VITALS: BP 119/70
--- NOTE | 2017-01-13 11:55 | Query- Nutrition ---
Bret Joyce Date:_01/13/17 Basic Acoustic Analyst/CDS:Srinivas Phone#:__[phone] Exercise your independent professional judgment when responding to query. Questions asked do not imply a particular answer is desired or expected. We greatly appreciate your clarification on this issue. Clinical Documentation States: The patient is a 46-year-old female presenting with a chief complaint of chest pain shortness of breath. The patient has a history of breast CVA with brain metastases. Patient is currently on chemotherapy and last received chemotherapy 4 days ago. The patient states she has had nausea vomiting for the past week. Patient was scheduled to receive chemotherapy today however when she arrived she was told that her platelet count was low (53,000) oh subsequently only given IV fluids and antiemetics. Clinical Findings Show: Chemotherapy currently-nausea vomiting for the past week BMI: 20.5 No albumin recorded Lymphocytes: 600 Please select the most appropriate option 3 [x] Mild Malnutrition [] Mild - Moderate Malnutrition [] Moderate - Severe Malnutrition [] Severe Malnutrition Serum Albumin 2.8 to 3.4 g/dl or Pre-albumin 5 to 17 mg/dl1,2 Inadequate nutritional intake1,2,3,4 NPO > 5 days Weight loss: 5% in 1 month or 7.5% in 3 months or 10% in 6 months1, 3,4 BMI 16 to 18.4 or Weight <90% of ideal body weight1,2,3,4 Serum Albumin < 2.8 g/ dl1,2 Lymphocytes < 1500/ L2 Inadequate nutritional intake3, high stress e.g. major trauma, sepsis,pancreatitis, irizarry etc. Decubitus ulcers1,2, , skin breakdown2, easy hair pluckability2 Weight <80% standard for height2 Triceps skin fold <3 mm2 Mid-arm muscle circumference <15 cm2 Creatinine-height index <60% standard2 [ ] Cachexia [ ] Emaciated w/Malnutrition [ ] Other: [ ] Unable to determine [ ] Comment/Explanation: Present on Admission: [ x] Yes (Y) [ ] Clinically undeterminable (W) [ ] No (N) Please also document response in your Progress Notes and/or Discharge Summary and indicate if the condition was present on admission. MTDD
== END 2017-01-05 19:03 | disposition home or self-care (01) | DRG 194 ==
LOC: ED 11:29 → 4A 18:53
PROVIDERS: ADMIT Internal Medicine; ATTEND Internal Medicine
DX: J18.9 Pneumonia, unspecified organism (principal); J90 Pleural effusion, not elsewhere classified; C79.31 Secondary malignant neoplasm of brain; E44.1 Mild protein-calorie malnutrition; E86.0 Dehydration; E87.6 Hypokalemia; D64.9 Anemia, unspecified; D69.59 Other secondary thrombocytopenia; T45.1X5A Adverse effect of antineoplastic and immunosuppressive drugs, initial encounter; Z85.3 Personal history of malignant neoplasm of breast; Z90.13 Acquired absence of bilateral breasts and nipples; Y92.89 Other specified places as the place of occurrence of the external cause; C50.919 Malignant neoplasm of unspecified site of unspecified female breast; Z68.20 Body mass index [BMI] 20.0-20.9, adult
CPT/HCPCS: 36415; 71020; 78452; 78582; 80048; 82550; 82553; 83735; 84484; 85025; 93005; 93010; 93017; A9502; A9540; A9558; J1170; J1642; J1956; J2785

== ENCOUNTER 2017-01-19 11:29 | Day surgery (SDC) | payer MEDICARE ==
[2017-01-19 12:05] VITALS: BP 108/58
[2017-01-19 12:31] LABS: INR 1.03 (0.87-1.13); Partial Thromboplastin Time 27.2 Sec. (24.2-36.6)
--- NOTE | 2017-01-19 15:15 | Ultrasound Report ---
ULTRASOUND CHEST History: Left pleural effusion Findings: Targeted fuller scale ultrasound was performed of the left-sided chest. The images demonstrate a small layering left pleural effusion measuring 78 cc. The collection was too small for ultrasound-guided thoracentesis. These findings were discussed with the patient who is in agreement not to perform the thoracentesis. Impression: Small left pleural effusion as described.
== END 2017-01-19 12:35 | disposition home or self-care (01) ==
LOC: OPU 11:29 → EDSTATUS 12:00 → OPU 12:35
PROVIDERS: ATTEND Internal Medicine Hematology & Oncology
DX: J90 Pleural effusion, not elsewhere classified (principal)
CPT/HCPCS: 36415; 76604; 85610; 85730

== ENCOUNTER 2017-04-09 06:28 | Outpatient (CLI) | payer MEDICARE, OTHER ==
--- NOTE | 2017-04-11 13:52 | PET Report ---
PET/CT:04/09/17 06:28:00 CLINICAL: Breast cancer restaging. RADIOPHARMACEUTICAL: 15.3mCi F18-FDG. COMPARISON: 12/11/16 PET/CT TECHNIQUE- Following intravenous injection of F-18 FDG and an approximately 60 minute uptake period, CT and PET images from the mid skull to the upper thighs were acquired with the patient in the fasted state. No contrast was administered. The CT protocol used for this PET CT study is designed for attenuation correction and anatomic localization of PET abnormalities. This cv/cvn cv tsc system operator CT is not desired to produce and cannot replace, iujst-xz-mix-art diagnostic CT scans with specific imaging protocols for different body parts and indications. Plasma glucose at the time of this test: 109g/dl. The standardized uptake values (SUV) are normalized to patient body weight and indicate the highest activity concentration (SUV max) in a given disease site. FINDINGS: Brain--Physiologic FDG uptake in the visualized regions of the brain. Neck--Focal FDG uptake in the left mandible has increased with SUV 7.7 compared to 4.8. There is no underlying bone lesion and this is probably dental in origin. Chest--Physiologic FDG uptake in mediastinal blood pool and myocardium. Lungs--Decreased anterior left upper lobe lung opacities. A remaining 2.0 x 1.1 cm anterior medial lung nodule with FDG uptake in SUV 4.1 compared to 6.7. Pleura/pericardium--No abnormal uptake. Left pleural effusion has resolved. Thoracic nodes--No abnormal uptake. Hepatobiliary--No abnormal uptake. Liver background SUV mean, as a reference for comparing FDG studies, is 3.6 compared to 3.7 on the last exam. No liver mass. Spleen--No abnormal uptake. Pancreas--No abnormal uptake. Adrenal Glands--No abnormal uptake. Kidneys/Ureters/Bladder--No abnormal uptake. Abdominopelvic Nodes--No abnormal uptake. Bowel/Peritoneum/Mesentery--No abnormal uptake. Pelvic organs--No abnormal uptake. Bones/Soft Tissues--Decreased FDG uptake in the sternum with SUV 4.4 compared to 6.5. No other abnormal skeletal uptake. Skeletal lesions are stable by CT. Other findings: Stable collapsed right breast implant. IMPRESSION-Partial response to therapy with decreased left lung lesions and decreased FDG uptake. Resolution of left pleural effusion. Decreased FDG uptake in the sternum. Increased focal uptake in the left mandible is likely dental in origin.
== END 2017-04-09 06:29 | disposition home or self-care (01) ==
LOC: PET 06:28
PROVIDERS: ATTEND Internal Medicine Hematology & Oncology
DX: C50.112 Malignant neoplasm of central portion of left female breast (principal); R91.1 Solitary pulmonary nodule; R21 Rash and other nonspecific skin eruption; Z98.82 Breast implant status
CPT/HCPCS: 78815; 82962; A9552

== ENCOUNTER 2017-07-03 20:54 | Emergency (ER) | payer MEDICARE ==
[2017-07-04 04:43] LABS: Hematocrit 29.3 % (30.3-42.9); Hemoglobin 9.3 gm/dl (10.1-14.3); Mean Corpuscular HGB Conc 32 % (30-34); Mean Corpuscular Hemoglobin 30 pg (28-32); Mean Corpuscular Volume 94 fl (79-97); Platelet Count 197 K/mm3 (140-440); Red Cell Distribution Width 17.7 % (13.2-15.2); White Blood Count 6.2 K/mm3 (4.5-11.0)
[2017-07-04 05:12] LABS: Alanine Aminotransferase 11 units/L (7-56); Albumin 2.9 g/dL (3.9-5); Albumin/Globulin Ratio 0.6 %; Alkaline Phosphatase 40 units/L (35-129); Anion Gap 16 mmol/L; BUN/Creatinine Ratio 6.66; Blood Urea Nitrogen 6 mg/dL (7-17); Calcium 7.6 mg/dL (8.4-10.2); Carbon Dioxide 22 mmol/L (22-30); Chloride 113.2 mmol/L (98-107); Glucose 83 mg/dL (65-100); Potassium 4.1 mmol/L (3.6-5.0); Sodium 147 mmol/L (137-145); Total Protein 7.4 g/dL (6.3-8.2)
[2017-07-04] MEDS ORDERED: K-PHOS NEUTRAL PO ONE (05:26)
[2017-07-04] MEDS ORDERED: SLOW-MAG PO ONE (05:26)
[2017-07-04] MEDS ORDERED: CALCIUM GLUCONATE PO ONE (05:42)
--- NOTE | 2017-07-04 05:43 | Emergency Department Report ---
ED General Adult HPI - General Chief complaint: Neuro Symptoms/Deficit Stated complaint: SHAKING/LOW BP Time Seen by Provider: 07/04/17 01:56 Source: patient Mode of arrival: Ambulatory Limitations: No Limitations - History of Present Illness Initial comments: Patient is a 46-year-old female past medical history of metastatic breast cancer who presents with shakiness and tremor. Patient states that 1 hours ago she woke up and she was shaky. Denies being mainly pain but states that since she was recently just discharged from the hospital she wanted to get "checked out" patient denies being mainly pain she states that her symptoms are mild nothing makes her shakiness better or worse. Patient states that she feels fine now. Patient denies having any fever or chest pain nausea or vomiting. - Related Data Home Medications Medication Instructions Recorded Confirmed Last Taken Morphine ER [Ms Contin ER] 30 mg PO BID 01/02/17 06/30/17 01/17/17 Previous Rx's Medication Instructions Recorded Last Taken Type Doxycycline [Vibramycin CAP] 100 mg PO Q12HR #28 capsule 07/03/17 Unknown Rx Levofloxacin [Levaquin] 750 mg PO QDAY #14 tablet 07/03/17 Unknown Rx Calcium Gluconate 500 mg PO BID #20 tablet 07/04/17 Unknown Rx Magnesium Chloride [Slow-Mag] 64 mg PO DAILY #20 tablet 07/04/17 Unknown Rx Phosphorus #1 [K-Phos Neutral] 250 mg PO DAILY #29 tablet 07/04/17 Unknown Rx Allergies Allergy/AdvReac Type Severity Reaction Status Date / Time promethazine HCl Allergy Shortness Verified 06/30/17 19:19 [From Phenergan] of Breath ED Review of Systems ROS: Stated complaint: SHAKING/LOW BP Other details as noted in HPI Constitutional: chills, weakness. denies: fever Eyes: denies: eye pain, eye discharge, vision change ENT: denies: ear pain, throat pain Respiratory: shortness of breath. denies: cough, wheezing Cardiovascular: denies: chest pain, palpitations Endocrine: no symptoms reported Gastrointestinal: denies: abdominal pain, nausea, diarrhea Genitourinary: denies: urgency, dysuria, discharge Musculoskeletal: denies: back pain, joint swelling, arthralgia Skin: denies: rash, lesions Neurological: denies: headache, weakness, paresthesias Psychiatric: denies: anxiety, depression Hematological/Lymphatic: easy bruising, other (lymphedema). denies: easy bleeding ED Past Medical Hx - Past Medical History Hx Hypertension: Yes (no meds) Hx Diabetes: No - Surgical History Hx Breast Surgery: Yes (Double mastectomy) Additional Surgical History: breast expanders - Social History Smoking Status: Never Smoker Substance Use Type: None - Medications Home Medications: Home Medications Medication Instructions Recorded Confirmed Last Taken Type Morphine ER [Ms Contin ER] 30 mg PO BID 01/02/17 06/30/17 01/17/17 History Doxycycline [Vibramycin CAP] 100 mg PO Q12HR #28 capsule 07/03/17 Unknown Rx Levofloxacin [Levaquin] 750 mg PO QDAY #14 tablet 07/03/17 Unknown Rx Calcium Gluconate 500 mg PO BID #20 tablet 07/04/17 Unknown Rx Magnesium Chloride [Slow-Mag] 64 mg PO DAILY #20 tablet 07/04/17 Unknown Rx Phosphorus #1 [K-Phos Neutral] 250 mg PO DAILY #29 tablet 07/04/17 Unknown Rx ED Physical Exam - General Limitations: No Limitations General appearance: alert, in no apparent distress - Head Head exam: Present: atraumatic, normocephalic - Eye Eye exam: Present: normal appearance - ENT ENT exam: Present: mucous membranes moist - Neck Neck exam: Present: normal inspection - Respiratory Respiratory exam: Present: normal lung sounds bilaterally, other (large surgical wound and bilateral meniscectomy surgical scars no seeping through the surgical dressing.). Absent: respiratory distress - Cardiovascular Cardiovascular Exam: Present: regular rate, normal rhythm, other (right chest port). Absent: systolic murmur, diastolic murmur, rubs, gallop - GI/Abdominal GI/Abdominal exam: Present: soft, normal bowel sounds - Extremities Exam Extremities exam: Present: other (lymphedema of the left arm with papular rash) - Back Exam Back exam: Present: normal inspection - Neurological Exam Neurological exam: Present: alert, oriented X3 - Psychiatric Psychiatric exam: Present: normal affect, normal mood - Skin Skin exam: Present: warm, dry, intact, normal color. Absent: rash ED Course Vital Signs 07/03/17 07/04/17 07/04/17 21:09 01:45 06:05 Temperature 98.5 F Pulse Rate 115 H 94 H Respiratory 16 20 17 Rate Blood Pressure 139/75 Blood Pressure 134/78 [Right] O2 Sat by Pulse 95 95 100 Oximetry ED Medical Decision Making - Lab Data Result diagrams: 07/04/17 04:15 07/04/17 04:15 Lab Results 07/03/17 07/04/17 07/04/17 Range/Units 21:09 04:15 04:15 WBC 6.2 (4.5-11.0) K/mm3 RBC 3.10 L (3.65-5.03) M/mm3 Hgb 9.3 L (10.1-14.3) gm/dl Hct 29.3 L (30.3-42.9) % MCV 94 (79-97) fl MCH 30 (28-32) pg MCHC 32 (30-34) % RDW 17.7 H (13.2-15.2) % Plt Count 197 (140-440) K/mm3 [place] % (Auto) Cancer Program Director Add Manual Diff Complete Total Counted 100 Seg Neuts % (Manual) 61.0 (40.0-70.0) % Band Neutrophils % 6.0 % Lymphocytes % (Manual) 20.0 (13.4-35.0) % Reactive Lymphs % (Man) 0 % Monocytes % (Manual) 13.0 H (0.0-7.3) % Eosinophils % (Manual) 0 (0.0-4.3) % Basophils % (Manual) 0 (0.0-1.8) % Metamyelocytes % 0 % Myelocytes % 0 % Promyelocytes % 0 % Blast Cells % 0 % Nucleated RBC % Not Reportable Seg Neutrophils # Man 3.8 (1.8-7.7) K/mm3 Band Neutrophils # 0.4 K/mm3 Lymphocytes # (Manual) 1.2 (1.2-5.4) K/mm3 Abs React Lymphs (Man) 0.0 K/mm3 Monocytes # (Manual) 0.8 (0.0-0.8) K/mm3 Eosinophils # (Manual) 0.0 (0.0-0.4) K/mm3 Basophils # (Manual) 0.0 (0.0-0.1) K/mm3 Metamyelocytes # 0.0 K/mm3 Myelocytes # 0.0 K/mm3 Promyelocytes # 0.0 K/mm3 Blast Cells # 0.0 K/mm3 WBC Morphology Not Reportable Hypersegmented Neuts Not Reportable Hyposegmented Neuts Not Reportable Hypogranular Neuts Not Reportable Smudge Cells Not Reportable Toxic Granulation Not Reportable Toxic Vacuolation Not Reportable Dohle Bodies Not Reportable Pelger-Huet Anomaly Not Reportable Nora Rods Not Reportable Platelet Estimate Appears normal Clumped Platelets Not Reportable Plt Clumps, EDTA Not Reportable Large Platelets Not Reportable Giant Platelets Not Reportable Platelet Satelliting Not Reportable Plt Morphology Comment Not Reportable RBC Morphology Not Reportable Dimorphic RBCs Not Reportable Polychromasia Not Reportable Hypochromasia Few Poikilocytosis Few Anisocytosis 1+ Microcytosis Not Reportable Macrocytosis Not Reportable Spherocytes Not Reportable Pappenheimer Bodies Not Reportable Sickle Cells Not Reportable Target Cells Not Reportable Tear Drop Cells Few Ovalocytes Not Reportable Helmet Cells Not Reportable [place] Bodies Not Reportable [place] Rings Not Reportable [place] Cells Not Reportable Bite Cells Not Reportable Crenated Cell Not Reportable Elliptocytes Not Reportable Acanthocytes (Spur) Not Reportable Rouleaux Not Reportable Hemoglobin C Crystals Not Reportable Schistocytes Not Reportable Malaria parasites Not Reportable S[place] Bodies Not Reportable Hem Pathologist Commnt No Sodium 147 H (137-145) mmol/L Potassium 4.1 (3.6-5.0) mmol/L Chloride 113.2 H (98-107) mmol/L Carbon Dioxide 22 (22-30) mmol/L Anion Gap 16 mmol/L BUN 6 L (7-17) mg/dL Creatinine 0.9 (0.7-1.2) mg/dL Estimated GFR > 60 ml/min BUN/Creatinine Ratio 6.66 % Glucose 83 (65-100) mg/dL POC Glucose 82 (70-105) Lactic Acid (0.7-2.0) mmol/L Calcium 7.6 L D (8.4-10.2) mg/dL Phosphorus 2.00 L (2.5-4.5) mg/dL Magnesium 1.30 L (1.7-2.3) mg/dL Total Bilirubin 0.30 (0.1-1.2) mg/dL AST 27 (5-40) units/L ALT 11 (7-56) units/L Alkaline Phosphatase 40 (35-129) units/L Total Protein 7.4 (6.3-8.2) g/dL Albumin 2.9 L (3.9-5) g/dL Albumin/Globulin Ratio 0.6 % 07/04/17 Range/Units 04:15 WBC (4.5-11.0) K/mm3 RBC (3.65-5.03) M/mm3 Hgb (10.1-14.3) gm/dl Hct (30.3-42.9) % MCV (79-97) fl MCH (28-32) pg MCHC (30-34) % RDW (13.2-15.2) % Plt Count (140-440) K/mm3 [place] % (Auto) Add Manual Diff Total Counted Seg Neuts % (Manual) (40.0-70.0) % Band Neutrophils % % Lymphocytes % (Manual) (13.4-35.0) % Reactive Lymphs % (Man) % Monocytes % (Manual) (0.0-7.3) % Eosinophils % (Manual) (0.0-4.3) % Basophils % (Manual) (0.0-1.8) % Metamyelocytes % % Myelocytes % % Promyelocytes % % Blast Cells % % Nucleated RBC % Seg Neutrophils # Man (1.8-7.7) K/mm3 Band Neutrophils # K/mm3 Lymphocytes # (Manual) (1.2-5.4) K/mm3 Abs React Lymphs (Man) K/mm3 Monocytes # (Manual) (0.0-0.8) K/mm3 Eosinophils # (Manual) (0.0-0.4) K/mm3 Basophils # (Manual) (0.0-0.1) K/mm3 Metamyelocytes # K/mm3 Myelocytes # K/mm3 Promyelocytes # K/mm3 Blast Cells # K/mm3 WBC Morphology Hypersegmented Neuts Hyposegmented Neuts Hypogranular Neuts Smudge Cells Toxic Granulation Toxic Vacuolation Dohle Bodies Pelger-Huet Anomaly Nora Rods Platelet Estimate Clumped Platelets Plt Clumps, EDTA Large Platelets Giant Platelets Platelet Satelliting Plt Morphology Comment RBC Morphology Dimorphic RBCs Polychromasia Hypochromasia Poikilocytosis Anisocytosis Microcytosis Macrocytosis Spherocytes Pappenheimer Bodies Sickle Cells Target Cells Tear Drop Cells Ovalocytes Helmet Cells Gal[place] Bodies [place] Rings Pam Cells Bite Cells Crenated Cell Elliptocytes Acanthocytes (Spur) Rouleaux Hemoglobin C Crystals Schistocytes Malaria parasites Simeon Bodies Hem Pathologist Commnt Sodium (137-145) mmol/L Potassium (3.6-5.0) mmol/L Chloride (98-107) mmol/L Carbon Dioxide (22-30) mmol/L Anion Gap mmol/L BUN (7-17) mg/dL Creatinine (0.7-1.2) mg/dL Estimated GFR ml/min BUN/Creatinine Ratio % Glucose (65-100) mg/dL POC Glucose (70-105) Lactic Acid 1.60 (0.7-2.0) mmol/L Calcium (8.4-10.2) mg/dL Phosphorus (2.5-4.5) mg/dL Magnesium (1.7-2.3) mg/dL Total Bilirubin (0.1-1.2) mg/dL AST (5-40) units/L ALT (7-56) units/L Alkaline Phosphatase (35-129) units/L Total Protein (6.3-8.2) g/dL Albumin (3.9-5) g/dL Albumin/Globulin Ratio % - Radiology Data Radiology results: report reviewed, image reviewed Chest x-ray: Shows small left pleural effusion and right chest port. - Medical Decision Making Chief medical diagnosis: Hypokalemia Differential medical diagnosis: Hypocalcemia, hyperphosphatemia, pneumonia, hypo -magnesium I will get CBC, CMP, chest x-ray, magnesium, phosphorus and lactic acid. Patient has low phosphorus, low calcium, low magnesium based on laboratory findings. Discussed with hospitalist he says that patient was just discharged yesterday and does not need to be admitted. He also states that patient can go home with oral electrolytes replace the period discussed plan with patient and she agrees with plan. Discussed return precautions to come back to the emergency department additional verbal discharge instructions were given. Critical care attestation.: If time is entered above; I have spent that time in minutes in the direct care of this critically ill patient, excluding procedure time. ED Disposition Clinical Impression: Hypocalcemia, Hypophosphatasia, Hypomagnesemia, Muscle cramps, Shakiness Breast cancer Qualifiers: Breast location: unspecified site of breast Estrogen receptor status: unspecified Patient sex: female Laterality: bilateral Qualified Code(s): C50.911 - Malignant neoplasm of unspecified site of right female breast Disposition: DC- TO HOME OR SELFCARE Is pt being admited?: No Does the pt Need Aspirin: No Condition: Stable Instructions: Shopping for a Healthy Diet (ED) Prescriptions: Calcium Gluconate 500 mg PO BID #20 tablet Magnesium Chloride [Slow-Mag] 64 mg PO DAILY #20 tablet Phosphorus #1 [K-Phos Neutral] 250 mg PO DAILY #29 tablet Referrals: JOAQUIN UNDERWOOD MD [Primary Care Provider] - 3-5 Days Time of Disposition: 06:34
[2017-07-04] MEDS ORDERED: CALCIUM GLUCONATE 1,000 MG in NACL 0.9% 100 ML IV ONE (06:13)
[2017-07-04 06:26] LABS: Anisocytosis 1+; Basophils % (Manual) 0 % (0.0-1.8); Blastocytes % (Manual) 0 %; Eosinophils % (Manual) 0 % (0.0-4.3); Hypochromasia Few; Poikilocytosis Few; Tear Drop Cells Few
[2017-07-04 06:27] LABS: Diff Status Complete
[2017-07-04 06:44] VITALS: BP 134/78
[2017-07-04] MEDS ORDERED: FLUSH HEPARIN IV ONE (06:45)
--- NOTE | 2017-07-04 10:43 | XRay Report ---
CHEST TWO VIEWS: 07/04/17 CLINICAL: Breast cancer and a bilateral mastectomy performed a few days ago. COMPARISON: 06/30/17 FINDINGS: Normal heart and pulmonary vasculature. The lungs are normally expanded and relatively clear. No air space disease. Mild widening of the left pleural space. Soft tissue defect in the left lower chest is consistent with a mastectomy defect.A right Jwopbs-l-Ccil tip is in the SVC. IMPRESSION: Suspect small left pleural effusion. Otherwise negative study.
== END 2017-07-04 07:00 | disposition home or self-care (01) ==
LOC: ED 20:54
DX: E83.51 Hypocalcemia (principal); E83.39 Other disorders of phosphorus metabolism; E83.42 Hypomagnesemia; R25.2 Cramp and spasm; C50.911 Malignant neoplasm of unspecified site of right female breast; I10 Essential (primary) hypertension; Z88.8 Allergy status to other drugs, medicaments and biological substances; Z90.13 Acquired absence of bilateral breasts and nipples
CPT/HCPCS: 36415; 71020; 80053; 82140; 82962; 83735; 84100; 85007; 85025; 93005; 93010; 96374; 99284; J0610; J1642

== ENCOUNTER 2017-07-08 08:04 | Outpatient (CLI) | payer MEDICARE ==
[2017-07-08] MEDS ORDERED: XYLOCAINE TOPICAL 4% TP ONE ×2 (08:47→09:05)
== END 2017-07-08 08:05 | disposition home or self-care (01) ==
LOC: WOUND 08:04
PROVIDERS: ATTEND Surgery
DX: T81.89XA Other complications of procedures, not elsewhere classified, initial encounter (principal); Y83.8 Other surgical procedures as the cause of abnormal reaction of the patient, or of later complication, without mention of misadventure at the time of the procedure; Y92.89 Other specified places as the place of occurrence of the external cause
CPT/HCPCS: 11042; 11045; G0463

== ENCOUNTER 2017-07-15 08:01 | Outpatient (CLI) | payer MEDICARE ==
[2017-07-15] MEDS ORDERED: XYLOCAINE TOPICAL 4% TP ONE ×2 (08:09→08:23)
== END 2017-07-15 08:02 | disposition home or self-care (01) ==
LOC: WOUND 08:01
PROVIDERS: ATTEND Surgery
DX: T81.89XD Other complications of procedures, not elsewhere classified, subsequent encounter (principal); Y83.8 Other surgical procedures as the cause of abnormal reaction of the patient, or of later complication, without mention of misadventure at the time of the procedure
CPT/HCPCS: 97606; G0463

== ENCOUNTER 2017-07-17 08:27 | Outpatient (CLI) | payer MEDICARE | END 2017-07-17 08:28 | disposition home or self-care (01) | LOC: WOUND 08:27 | PROVIDERS: ATTEND Podiatrist | DX: T81.89XD Other complications of procedures, not elsewhere classified, subsequent encounter (principal); Y83.8 Other surgical procedures as the cause of abnormal reaction of the patient, or of later complication, without mention of misadventure at the time of the procedure | CPT/HCPCS: 97606 ==

== ENCOUNTER 2017-07-21 08:09 | Outpatient (CLI) | payer MEDICARE ==
[2017-07-21] MEDS ORDERED: NACL 0.9% 500 ML IR ONE (08:33)
[2017-07-21] MEDS ORDERED: XYLOCAINE TOPICAL 4% TP ONE ×3 (08:33→09:37)
[2017-07-21] MEDS ORDERED: NACL 0.9% IR PRN (09:38)
== END 2017-07-21 08:10 | disposition home or self-care (01) ==
LOC: WOUND 08:09
PROVIDERS: ATTEND Surgery
DX: T81.89XD Other complications of procedures, not elsewhere classified, subsequent encounter (principal); Y83.8 Other surgical procedures as the cause of abnormal reaction of the patient, or of later complication, without mention of misadventure at the time of the procedure
CPT/HCPCS: 97606

== ENCOUNTER 2017-07-28 08:05 | Outpatient (CLI) | payer MEDICARE ==
[2017-07-28] MEDS ORDERED: XYLOCAINE TOPICAL 4% TP ONE ×2 (08:31→08:32)
[2017-07-28] MEDS ORDERED: NACL 0.9% 500 ML IR ONE (08:31)
[2017-07-29] MEDS ORDERED: NACL 0.9% IR PRN (16:16)
== END 2017-07-28 08:06 | disposition home or self-care (01) ==
LOC: WOUND 08:05
PROVIDERS: ATTEND Surgery
DX: T81.89XD Other complications of procedures, not elsewhere classified, subsequent encounter (principal); Y83.8 Other surgical procedures as the cause of abnormal reaction of the patient, or of later complication, without mention of misadventure at the time of the procedure
CPT/HCPCS: 97606

== ENCOUNTER 2017-08-04 08:11 | Outpatient (CLI) | payer MEDICARE ==
[2017-08-04] MEDS ORDERED: XYLOCAINE TOPICAL 4% TP ONE ×3 (08:18→09:01)
== END 2017-08-04 08:12 | disposition home or self-care (01) ==
LOC: WOUND 08:11
PROVIDERS: ATTEND Surgery
DX: T81.89XD Other complications of procedures, not elsewhere classified, subsequent encounter (principal); Z85.828 Personal history of other malignant neoplasm of skin; Y83.8 Other surgical procedures as the cause of abnormal reaction of the patient, or of later complication, without mention of misadventure at the time of the procedure
CPT/HCPCS: 97606

== ENCOUNTER 2017-08-08 17:30 | Inpatient (IN) | payer MEDICARE ==
[2017-08-08] MEDS ORDERED: NACL 0.9% 500 ML 500 ML IV ONE (17:39)
--- NOTE | 2017-08-08 17:56 | Emergency Department Report ---
ED General Adult HPI - General Chief complaint: Pain General Stated complaint: BACK AND NECK PAIN, VOMITING Time Seen by Provider: 08/08/17 17:43 Source: patient Mode of arrival: Wheelchair Limitations: No Limitations - History of Present Illness Initial comments: 46-year-old female here with complaint of neck back chest pain. Patient is emaciated female on chemotherapy for breast CA. She is wound VAC on her left chest. She denies fevers. She does feel weak. She's recently been trying to wean off pain medications. She has had some mild nausea and intermittent vomiting. -: Gradual Location: head Radiation: non-radiation Improves with: none Worsens with: none Associated Symptoms: chest pain, nausea/vomiting. denies: cough, diaphoresis, fever/chills, headaches, loss of appetite - Related Data Home Medications Medication Instructions Recorded Confirmed Last Taken Morphine ER [Ms Contin ER] 30 mg PO BID 01/02/17 06/30/17 01/17/17 Previous Rx's Medication Instructions Recorded Last Taken Type Doxycycline [Vibramycin CAP] 100 mg PO Q12HR #28 capsule 07/03/17 Unknown Rx Levofloxacin [Levaquin] 750 mg PO QDAY #14 tablet 07/03/17 Unknown Rx Calcium Gluconate 500 mg PO BID #20 tablet 07/04/17 Unknown Rx Magnesium Chloride [Slow-Mag] 64 mg PO DAILY #20 tablet 07/04/17 Unknown Rx Phosphorus #1 [K-Phos Neutral] 250 mg PO DAILY #29 tablet 07/04/17 Unknown Rx Allergies Allergy/AdvReac Type Severity Reaction Status Date / Time promethazine HCl Allergy Shortness Verified 06/30/17 19:19 [From Phenergan] of Breath ED Review of Systems ROS: Stated complaint: BACK AND NECK PAIN, VOMITING Other details as noted in HPI Comment: All other systems reviewed and negative Constitutional: chills, malaise, weakness. denies: fever Respiratory: denies: cough, orthopnea Cardiovascular: chest pain. denies: palpitations, dyspnea on exertion Gastrointestinal: nausea, vomiting. denies: abdominal pain Neurological: denies: headache, weakness ED Past Medical Hx - Past Medical History Hx Hypertension: Yes (no meds) Hx Diabetes: No Additional medical history: Breast cancer - Surgical History Hx Breast Surgery: Yes (Double mastectomy) Additional Surgical History: breast expanders - Social History Smoking Status: Never Smoker Substance Use Type: None - Medications Home Medications: Home Medications Medication Instructions Recorded Confirmed Last Taken Type Morphine ER [Ms Contin ER] 30 mg PO BID 01/02/17 06/30/17 01/17/17 History Doxycycline [Vibramycin CAP] 100 mg PO Q12HR #28 capsule 07/03/17 Unknown Rx Levofloxacin [Levaquin] 750 mg PO QDAY #14 tablet 07/03/17 Unknown Rx Calcium Gluconate 500 mg PO BID #20 tablet 07/04/17 Unknown Rx Magnesium Chloride [Slow-Mag] 64 mg PO DAILY #20 tablet 07/04/17 Unknown Rx Phosphorus #1 [K-Phos Neutral] 250 mg PO DAILY #29 tablet 07/04/17 Unknown Rx ED Physical Exam - General Limitations: No Limitations General appearance: alert, cachectic - Head Head exam: Present: atraumatic, normocephalic - Eye Eye exam: Absent: scleral icterus, conjunctival injection - ENT ENT exam: Present: mucous membranes dry - Respiratory Respiratory exam: Present: normal lung sounds bilaterally. Absent: respiratory distress, wheezes - Cardiovascular Cardiovascular Exam: Present: normal rhythm, tachycardia, other (wound VAC on left chest). Absent: systolic murmur, diastolic murmur, rubs, gallop - GI/Abdominal GI/Abdominal exam: Present: soft, normal bowel sounds. Absent: distended, tenderness - Extremities Exam Extremities exam: Absent: tenderness, normal capillary refill - Back Exam Back exam: Absent: CVA tenderness (R), CVA tenderness (L), muscle spasm, paraspinal tenderness - Neurological Exam Neurological exam: Present: alert, oriented X3 - Psychiatric Psychiatric exam: Present: normal affect, normal mood - Skin Skin exam: Present: warm, dry, intact, normal color. Absent: rash ED Course Vital Signs 08/08/17 08/08/17 08/08/17 17:34 18:05 18:21 Temperature 98.9 F 98.3 F Pulse Rate 132 H 118 H 103 H Respiratory 20 22 15 Rate Blood Pressure 171/130 Blood Pressure 182/132 [Right] O2 Sat by Pulse 92 98 100 Oximetry 08/08/17 08/08/17 18:25 20:30 Temperature 97.2 F L Pulse Rate 80 Respiratory 20 Rate Blood Pressure Blood Pressure 188/118 191/114 [Right] O2 Sat by Pulse 100 Oximetry ED Medical Decision Making - Lab Data Result diagrams: 08/08/17 17:54 08/08/17 17:54 Laboratory Results - last 24 hr 08/08/17 08/08/17 08/08/17 17:54 17:54 17:54 WBC 5.9 RBC 4.58 Hgb 12.8 Hct 39.7 MCV 87 MCH 28 MCHC 32 RDW 16.9 H Plt Count 59 L Lymph % (Auto) 12.0 L [place] % (Auto) 13.5 H Eos % (Auto) 0.1 Baso % (Auto) 0.2 Lymph # 0.7 L [place] # 0.8 Eos # 0.0 Baso # 0.0 Seg Neutrophils % 74.2 H Seg Neutrophils # 4.4 PT 13.6 INR 0.99 VBG pH Sodium 137 Potassium 3.7 Chloride 94.0 L Carbon Dioxide 25 Anion Gap 22 BUN 13 Creatinine 0.8 Estimated GFR > 60 BUN/Creatinine Ratio 16 Glucose 109 H Lactic Acid Calcium 9.6 Total Bilirubin 0.90 AST 62 H ALT 51 Alkaline Phosphatase 82 Total Protein 9.0 H Albumin 3.4 L Albumin/Globulin Ratio 0.6 Urine Color Urine Turbidity Urine pH Ur Specific [place] Urine Protein Urine Glucose (UA) Urine Ketones Urine Blood Urine Nitrite Urine Bilirubin Urine Urobilinogen Ur Leukocyte Esterase Urine WBC (Auto) Urine RBC (Auto) U Epithel Cells (Auto) Hyaline Casts Urine Mucus 08/08/17 08/08/17 08/08/17 17:54 17:54 Unknown WBC RBC Hgb Hct MCV MCH MCHC RDW Plt Count Lymph % (Auto) [place] % (Auto) Eos % (Auto) Baso % (Auto) Lymph # [place] # Eos # Baso # Seg Neutrophils % Seg Neutrophils # PT INR VBG pH 7.382 Sodium Potassium Chloride Carbon Dioxide Anion Gap BUN Creatinine Estimated GFR BUN/Creatinine Ratio Glucose Lactic Acid 2.90 H* Calcium Total Bilirubin AST ALT Alkaline Phosphatase Total Protein Albumin Albumin/Globulin Ratio Urine Color Yellow Urine Turbidity Clear Urine pH 6.0 Ur Specific [place] 1.009 Urine Protein <15 mg/dl Urine Glucose (UA) Neg Urine Ketones Tr Urine Blood Neg Urine Nitrite Neg Urine Bilirubin Neg Urine Urobilinogen < 2.0 Ur Leukocyte Esterase Neg Urine WBC (Auto) 1.0 Urine RBC (Auto) 1.0 U Epithel Cells (Auto) 5.0 Hyaline Casts 1 Urine Mucus Few - Medical Decision Making 46-year-old likely old female here with complaint of pain in the left side. Patient has significant skin rash on the right chest and arm. She is afebrile. She appears dehydrated. It is certainly possible that she has a infection. Evaluate for infection with chest x-ray and labs and reassessment. Plan to cover empirically with vancomycin. CT head negative. Patient given 2 morphine for pain. Chest x-ray with questionable infiltrate. Plan to cover with Zosyn. Plan to admit the patient to the hospitalist service. Portions of this chart were dictated with dictation software. There may be dictation errors contained within this note. Critical care attestation.: If time is entered above; I have spent that time in minutes in the direct care of this critically ill patient, excluding procedure time. ED Disposition Clinical Impression: Altered mental status Disposition: DC-09 OP ADMIT IP TO THIS HOSP Is pt being admited?: Yes Condition: Stable Referrals: ARAVIND DAVID MD [Primary Care Provider] - 3-5 Days
[2017-08-08] MEDS ORDERED: VANCOMYCIN/NS 1 GM/250 ML 1 GM/250 ML BAG IV NR (18:00)
[2017-08-08] MEDS ORDERED: NACL 0.9% 1000 ML 1,000 ML IV ONE (18:01)
[2017-08-08] MEDS ORDERED: NACL 0.9% 1000 ML 1,000 ML ONE (18:03)
[2017-08-08 18:12] LABS: Basophils % (Auto) 0.2 % (0.0-1.8); Eosinophils % (Auto) 0.1 % (0.0-4.3); Hematocrit 39.7 % (30.3-42.9); Hemoglobin 12.8 gm/dl (10.1-14.3); Mean Corpuscular HGB Conc 32 % (30-34); Mean Corpuscular Hemoglobin 28 pg (28-32); Mean Corpuscular Volume 87 fl (79-97); Red Blood Count 4.58 M/mm3 (3.65-5.03); Red Cell Distribution Width 16.9 % (13.2-15.2); White Blood Count 5.9 K/mm3 (4.5-11.0)
[2017-08-08 18:30] LABS: INR 0.99 (0.87-1.13)
[2017-08-08 18:34] LABS: Alanine Aminotransferase 51 units/L (7-56); Albumin 3.4 g/dL (3.9-5); Albumin/Globulin Ratio 0.6 %; Alkaline Phosphatase 82 units/L (35-129); Anion Gap 22 mmol/L; BUN/Creatinine Ratio 16; Blood Urea Nitrogen 13 mg/dL (7-17); Calcium 9.6 mg/dL (8.4-10.2); Carbon Dioxide 25 mmol/L (22-30); Glucose 109 mg/dL (65-100); Potassium 3.7 mmol/L (3.6-5.0); Sodium 137 mmol/L (137-145)
--- NOTE | 2017-08-08 18:55 | XRay Report ---
FINAL REPORT PROCEDURE: XR CHEST 1V AP TECHNIQUE: Chest radiograph anteroposterior view. CPT 09024 HISTORY: possible Sepsis COMPARISON: 01/02/2017 FINDINGS: Heart: Normal. Mediastinum/Vessels: Normal. Lungs/Pleural space: Subtle infiltrative changes are noted in the left upper lobe. Right lung and bilateral pleural spaces are clear. Bony thorax: No acute osseous abnormality. Life support devices: A right-sided chest port is noted with the catheter terminating at the level of distal superior vena cava. IMPRESSION: Early infiltrative changes left upper lobe.
[2017-08-08] MEDS ORDERED: MORPHINE IV ONE ×2 (19:05→22:28)
[2017-08-08 19:37] LABS: Platelet Count 59 K/mm3 (140-440)
[2017-08-08] MEDS ORDERED: ZOSYN/NS 4.5GM/100ML 4.5 GM/100 ML VIAL IV ONE (19:50)
[2017-08-08 19:53] LABS: Bilirubin,Urine NEG (Negative); Blood,Urine NEG (Negative); Ketones,Urine TR mg/dL (Negative); Leukocyte Esterase,Urine NEG (Negative); Mucus,Urine FEW /HPF; Nitrite,Urine NEG (Negative); Protein,Urine <15 mg/dL mg/dL (Negative); Urobilinogen,Urine < 2.0 mg/dL (<2.0)
--- NOTE | 2017-08-08 20:35 | Cat Scan Report ---
FINAL REPORT PROCEDURE: CT HEAD/BRAIN WO CON TECHNIQUE: Computerized tomography of the head was performed without contrast material. HISTORY: altered mental status COMPARISON: No prior studies are available for comparison. FINDINGS: Skull and scalp: Normal. Paranasal sinuses: Normal. Ventricles and subarachnoid spaces: Normal. Cerebrum: No evidence of hemorrhage, acute infarction or mass . Cerebellum and brainstem: No evidence of hemorrhage, acute infarction or mass. Vasculature: Normal. Comments: None. IMPRESSION: Normal Examination
[2017-08-08] MEDS ORDERED: XYLOCAINE CARDIAC IV ONE (21:20)
[2017-08-08] MEDS ORDERED: ADRENALIN ONE (21:20)
[2017-08-08] MEDS ORDERED: ADRENALIN 8 MG in NACL 0.9% 250ML 242 ML IV ONE (21:50)
[2017-08-08] MEDS ORDERED: NORMODYNE IV ONE (22:02)
[2017-08-08] MEDS ORDERED: MORPHINE ONE (22:25)
[2017-08-08] MEDS ORDERED: NACL 0.45% 1000 ML 1,000 ML IV SCH (23:00)
[2017-08-08] MEDS ORDERED: NACL ONE (23:52)
--- NOTE | 2017-08-09 00:58 | Cat Scan Report ---
FINAL REPORT PROCEDURE: CT ANGIO CHEST TECHNIQUE: Computerized axial tomographic angiography of the chest and pulmonary arteries was performed after the IV injection of iodinated nonionic contrast. The image data was postprocessed using maximum intensity projection (MIP) and 2-dimensional multiplanar reformatted (MPR) techniques. The examination is specifically tailored to the evaluation of the pulmonary arteries per clinical request. HISTORY: Short of breath 786.09, chest pain 786.50, PE protocol COMPARISON: No prior studies are available for comparison. FINDINGS: Heart and pericardium: Normal. Thoracic aorta: There is no thoracic aortic aneurysm or dissection.. Pulmonary vasculature: Normal. No pulmonary emboli. Lymph nodes: No enlarged thoracic lymph nodes. Lungs: Lungs are expanded. There is anterior left pleural thickening and nodularity. There are numerous pulmonary nodules bilaterally highly suspicious for metastatic malignancy. There are no infiltrates.. Pleural space: There is no pleural effusion or pneumothorax.. Musculoskeletal structures: There is right breast implant. There has been a left mastectomy.. There are blastic metastases of T3, the sternum, T12 Upper abdominal structures: No significant abnormality. IMPRESSION: There is no pulmonary embolism.. There is no thoracic aortic aneurysm or dissection.. Lungs are expanded. There is anterior left pleural thickening and nodularity. There are numerous pulmonary nodules bilaterally highly suspicious for metastatic malignancy. There are no infiltrates.. There is no pleural effusion or pneumothorax.. There is right breast implant. There has been a left mastectomy.. There are blastic metastases of T3, the sternum, T12
--- NOTE | 2017-08-09 01:03 | History and Physical Report ---
History of Present Illness Date of examination: 08/08/17 Date of admission: 08/08/17 21:51 History of present illness: 46-year-old woman history of metastatic breast cancer was on chemotherapy brought to the emergency room because she has been very lethargic at home. She is been confused. Sister at bedside state that a family member said that she may have passed out. Patient was started on fentanyl patch 2 weeks ago, since that time she has become very lethargic, fentanyl patch was removed. She has decreased oral intake, complaints of nausea, vomiting. Review of system is unobtainable PAST MEDICAL HISTORY: metastatic breast cancer PAST SURGICAL HISTORY: Bilateral mastectomy FAMILY HISTORY: Hypertension SOCIAL HISTORY: Denies alcohol, tobacco, drugs Medications and Allergies Allergies Allergy/AdvReac Type Severity Reaction Status Date / Time promethazine HCl Allergy Shortness Verified 06/30/17 19:19 [From Phenergan] of Breath Home Medications Medication Instructions Recorded Confirmed Last Taken Type Morphine ER [Ms Contin ER] 30 mg PO BID 01/02/17 06/30/17 01/17/17 History Doxycycline [Vibramycin CAP] 100 mg PO Q12HR #28 capsule 07/03/17 Unknown Rx Levofloxacin [Levaquin] 750 mg PO QDAY #14 tablet 07/03/17 Unknown Rx Calcium Gluconate 500 mg PO BID #20 tablet 07/04/17 Unknown Rx Magnesium Chloride [Slow-Mag] 64 mg PO DAILY #20 tablet 07/04/17 Unknown Rx Phosphorus #1 [K-Phos Neutral] 250 mg PO DAILY #29 tablet 07/04/17 Unknown Rx Active Meds: Active Medications Hydralazine HCl (Apresoline) 5 mg IV Q6HR PRN PRN Reason: Hypertension Vancomycin HCl (Vancomycin/Ns 1 Gm/250 Ml) 1 gm in 250 mls @ 167.007 mls/hr IV PREOP NR PRN Reason: Protocol Stop: 08/09/17 17:59 Last Admin: 08/08/17 18:09 Dose: 167.007 mls/hr Sodium Chloride (Nacl 0.45% 1000 Ml) 1,000 mls @ 75 mls/hr IV DIRECT KIRILL Exam - Physical Exam Narrative exam: Gen. appearance: Patient lying in bed in no acute distress HEENT: Normocephalic/atraumatic, pupils equal round reactive to light, extra alkaline movement intact, no scleral icterus, no JVD or thyromegaly or nodule, neck is supple, mucous membrane moist, no erythema or exudate Heart: S1-S2, regular rate and rhythm Lungs: Clear to auscultation bilateral breathing comfortable Abdomen: Positive bowel sounds, nontender, nondistended, no organomegaly Extremities: No edema, cyanosis, clubbing Neuro:: Oriented 3 , cranial nerves II-12 intact, speech, motor intact Skin: Wound VAC over the left breast, No rash, nodules, warm dry - Constitutional Vitals: Temp Pulse Resp BP Pulse Ox 97.2 F L 108 H 16 179/131 97 08/08/17 20:30 08/08/17 22:00 08/08/17 22:00 08/08/17 22:00 08/08/17 22:00 Results - Labs CBC & Chem 7: 08/10/17 08:10 08/11/17 09:21 Labs: Abnormal lab results 08/08/17 Range/Units 22:46 D-Dimer 918.8 H (0-234) ng/mlDDU - Imaging and Cardiology CT Scan - head: report reviewed Assessment and Plan Assessment Encephalopathy, acute probably secondary to narcotics Probably syncope Left breast wound/? infection Metastatic breast cancer Thrombocytopenia Plan Continue to hold narcotics Start IV fluids, check cardiac enzymes, d-dimer D-dimer was elevated will check CT chest Consult wound care, oncology, start emperic zosyn Status post vancomycin and Zosyn in the emergency room DVT prophylaxis
[2017-08-09 03:17] LABS: Creatine Kinase MB 1.7 ng/mL (0.0-4.0)
[2017-08-09 03:18] LABS: Creatine Kinase 55 units/L (30-135)
[2017-08-09] MEDS: APRESOLINE IV PRN ×2 (03:36→13:37)
[2017-08-09] MEDS ORDERED: TORADOL IV ONE (04:00)
[2017-08-09] MEDS: ZOSYN/NS 3.375GM/50ML 3.375 GM/50 ML BAG IV SCH ×3 (06:36→22:29)
[2017-08-09] MEDS ORDERED: LOVENOX SUB-Q SCH (10:00)
--- NOTE | 2017-08-09 10:00 | Progress Note ---
Assessment and Plan Assessment and plan: 46-year-old woman history of metastatic breast cancer was on chemotherapy brought to the emergency room because she has been very lethargic at home. She is been confused. Sister at bedside state that a family member said that she may have passed out. Patient was recently started on fentanyl , since that time she has become very lethargic, fentanyl patch was removed. She has decreased oral intake, complaints of nausea, vomiting. Toxic Encephalopathy, acute probably secondary to narcotics * We'll try to minimize narcotic use * We'll put lidocaine patch on her back Left breast wound, with cellulitis -Continue empiric antibiotics, will contact her surgeon to obtain wound care instructions -Continue empiric antibiotics Questionable syncope, transient metabolic imbalance D-dimer was positive, therefore had CT angiogram which was negative for PE Metastatic breast cancer Continue outpatient care upon discharge Thrombocytopenia Due to chemotherapy, stable Hypertension Optimize blood pressure meds Case was discussed with the family at the bedside History Interval history: Patient's has apparently been complaining of pain in her back and her neck and all over , has been complaining of needing pain meds. Has been somnolent and falling in and out of sleep. Hospitalist Physical - Physical exam Narrative exam: General.: Appears chronically ill, cachectic HEENT: Moist mucous membranes, extraocular muscles intact, no lymphadenopathy Neck: supple Cardiac: S1-S2 heard Lungs: clear to auscultation bilaterally Left breast has a wound with dressing over it, dressing was not removed. Abdomen: soft , nontender, nondistended, bowel sounds positive Extremities: no edema clubbing or cyanosis Skin: Left breast wound as above Neurologic: Oriented to person only, confused, somnolent - Constitutional Vitals: Temp Pulse Resp BP Pulse Ox 98.4 F 75 18 193/122 99 08/09/17 03:00 08/09/17 05:18 08/09/17 05:18 08/09/17 03:36 08/09/17 05:18 Results - Labs CBC & Chem 7: 08/10/17 08:10 08/10/17 08:10 Labs: Laboratory Last Values WBC 5.9 K/mm3 (4.5-11.0) 08/08/17 17:54 RBC 4.58 M/mm3 (3.65-5.03) 08/08/17 17:54 Hgb 12.8 gm/dl (10.1-14.3) 08/08/17 17:54 Hct 39.7 % (30.3-42.9) 08/08/17 17:54 MCV 87 fl (79-97) 08/08/17 17:54 MCH 28 pg (28-32) 08/08/17 17:54 MCHC 32 % (30-34) 08/08/17 17:54 RDW 16.9 % (13.2-15.2) H 08/08/17 17:54 Plt Count 59 K/mm3 (140-440) L 08/08/17 17:54 Lymph % (Auto) 12.0 % (13.4-35.0) L 08/08/17 17:54 [place] % (Auto) 13.5 % (0.0-7.3) H 08/08/17 17:54 Eos % (Auto) 0.1 % (0.0-4.3) 08/08/17 17:54 Baso % (Auto) 0.2 % (0.0-1.8) 08/08/17 17:54 Lymph # 0.7 K/mm3 (1.2-5.4) L 08/08/17 17:54 [place] # 0.8 K/mm3 (0.0-0.8) 08/08/17 17:54 Eos # 0.0 K/mm3 (0.0-0.4) 08/08/17 17:54 Baso # 0.0 K/mm3 (0.0-0.1) 08/08/17 17:54 Seg Neutrophils % 74.2 % (40.0-70.0) H 08/08/17 17:54 Seg Neutrophils # 4.4 K/mm3 (1.8-7.7) 08/08/17 17:54 PT 13.6 Sec. (12.2-14.9) 08/08/17 17:54 INR 0.99 (0.87-1.13) 08/08/17 17:54 D-Dimer 918.8 ng/mlDDU (0-234) H 08/08/17 22:46 VBG pH 7.382 (7.320-7.420) 08/08/17 17:54 Sodium 137 mmol/L (137-145) 08/08/17 17:54 Potassium 3.7 mmol/L (3.6-5.0) 08/08/17 17:54 Chloride 94.0 mmol/L (98-107) L 08/08/17 17:54 Carbon Dioxide 25 mmol/L (22-30) 08/08/17 17:54 Anion Gap 22 mmol/L 08/08/17 17:54 BUN 13 mg/dL (7-17) 08/08/17 17:54 Creatinine 0.8 mg/dL (0.7-1.2) 08/08/17 17:54 Estimated GFR > 60 ml/min 08/08/17 17:54 BUN/Creatinine Ratio 16 % 08/08/17 17:54 Glucose 109 mg/dL (65-100) H 08/08/17 17:54 Lactic Acid 2.10 mmol/L (0.7-2.0) H* 08/08/17 20:14 Calcium 9.6 mg/dL (8.4-10.2) 08/08/17 17:54 Total Bilirubin 0.90 mg/dL (0.1-1.2) 08/08/17 17:54 AST 62 units/L (5-40) H 08/08/17 17:54 ALT 51 units/L (7-56) 08/08/17 17:54 Alkaline Phosphatase 82 units/L (35-129) 08/08/17 17:54 Total Creatine Kinase 55 units/L (30-135) 08/09/17 02:39 CK-MB (CK-2) 1.7 ng/mL (0.0-4.0) 08/09/17 02:39 CK-MB (CK-2) Rel Index 3.0 (0-4) 08/09/17 02:39 Troponin T < 0.010 ng/mL (0.00-0.029) 08/09/17 02:39 Total Protein 9.0 g/dL (6.3-8.2) H 08/08/17 17:54 Albumin 3.4 g/dL (3.9-5) L 08/08/17 17:54 Albumin/Globulin Ratio 0.6 % 08/08/17 17:54 Urine Color Yellow (Yellow) 08/08/17 Unknown Urine Turbidity Clear (Clear) 08/08/17 Unknown Urine pH 6.0 (5.0-7.0) 08/08/17 Unknown Ur Specific [place] 1.009 (1.003-1.030) 08/08/17 Unknown Urine Protein <15 mg/dl mg/dL (Negative) 08/08/17 Unknown Urine Glucose (UA) Neg mg/dL (Negative) 08/08/17 Unknown Urine Ketones Tr mg/dL (Negative) 08/08/17 Unknown Urine Blood Neg (Negative) 08/08/17 Unknown Urine Nitrite Neg (Negative) 08/08/17 Unknown Urine Bilirubin Neg (Negative) 08/08/17 Unknown Urine Urobilinogen < 2.0 mg/dL (<2.0) 08/08/17 Unknown Ur Leukocyte Esterase Neg (Negative) 08/08/17 Unknown Urine WBC (Auto) 1.0 /HPF (0.0-6.0) 08/08/17 Unknown Urine RBC (Auto) 1.0 /HPF (0.0-6.0) 08/08/17 Unknown U Epithel Cells (Auto) 5.0 /HPF (0-13.0) 08/08/17 Unknown Hyaline Casts 1 /LPF 08/08/17 Unknown Urine Mucus Few /HPF 08/08/17 Unknown
[2017-08-09] MEDS ORDERED: PERCOCET 5/325 PO PRN (10:02)
[2017-08-09] MEDS ORDERED: DIOVAN PO SCH (11:00)
[2017-08-09] MEDS ORDERED: HCTZ PO SCH (11:00)
[2017-08-09 12:15] LABS: Creatine Kinase MB 1.7 ng/mL (0.0-4.0)
[2017-08-09 12:16] LABS: Creatine Kinase 72 units/L (30-135)
[2017-08-09] MEDS ORDERED: WATER FOR INJ (PF) 10 ML ONE (13:18)
--- NOTE | 2017-08-09 14:43 | Hem/Onc Progress Note ---
Subjective Date of service: 08/09/17 Interval history: This patient is known to us. She has breast cancer with large open chest wound which has a wound vac in place She was recently restarted on Gemzar chemotherapy. Family reports poor pain control, inability to keep pain medications on her stomach because of chronic vomiting, and increasing confusion since they started Fentanyl patch Patient is obtunded but arousable. Duragesic patch has been removed. - consider low dose (1 -2 mg) morphine after patient becomes more alert for pain control - check baseline Ammonia level Objective - Constitutional Vitals: Last Vital Signs Temp 98.4 F 08/09/17 03:00 Pulse 75 08/09/17 05:18 Resp 18 08/09/17 05:18 BP 195/135 08/09/17 13:37 Pulse Ox 99 08/09/17 05:18 General appearance: cachectic, temporal muscle wasting Performance status: 4-completely disabled (-- Obtunded, responds to voice) - EENT Eyes: PERRL (pupils are not pinpoint, they are sluggish but responsive ) ENT: hearing intact - Neck Neck: supple, normal ROM - Respiratory Respiratory: negative: CTA - Breasts Breasts: left: other (wound vac sponge in place ) Extremities: No edema - Labs Lab Results: Laboratory Results - last 24 hr 08/08/17 08/08/17 08/09/17 22:46 Unknown 02:39 D-Dimer 918.8 H Total Creatine Kinase 55 CK-MB (CK-2) 1.7 CK-MB (CK-2) Rel Index 3.0 Troponin T < 0.010 Urine Color Yellow Urine Turbidity Clear Urine pH 6.0 Ur Specific [place] 1.009 Urine Protein <15 mg/dl Urine Glucose (UA) Neg Urine Ketones Tr Urine Blood Neg Urine Nitrite Neg Urine Bilirubin Neg Urine Urobilinogen < 2.0 Ur Leukocyte Esterase Neg Urine WBC (Auto) 1.0 Urine RBC (Auto) 1.0 U Epithel Cells (Auto) 5.0 Hyaline Casts 1 Urine Mucus Few 08/09/17 11:41 D-Dimer Total Creatine Kinase 72 CK-MB (CK-2) 1.7 CK-MB (CK-2) Rel Index 2.3 Troponin T < 0.010 Urine Color Urine Turbidity Urine pH Ur Specific [place] Urine Protein Urine Glucose (UA) Urine Ketones Urine Blood Urine Nitrite Urine Bilirubin Urine Urobilinogen Ur Leukocyte Esterase Urine WBC (Auto) Urine RBC (Auto) U Epithel Cells (Auto) Hyaline Casts Urine Mucus
[2017-08-09] MEDS: LIDODERM 5% TD SCH (18:54)
--- NOTE | 2017-08-09 21:40 | Event Note ---
Date: 08/09/17 Called to a CODE BLUE on the floor. Patient was found to be in cardiac arrest. On my arrival initiated ACLS protocol, started CPR and intubated the patient. Patient was intubated with a 7.5 endotracheal tube. This was done without any sedation. He was done in an emergent setting. Tube was passed in a single attempt. Good color change noted, condensation in the tube and good equal breath sounds. Chest x-ray reviewed showed ET tube in proper position. Hospitalist over care of the patient at this point. Patient proceed to the ICU.
[2017-08-09] MEDS ORDERED: VASELINE LIP THERAPY TP PRN ×2 (22:08→22:09)
[2017-08-09] MEDS ORDERED: ARTIFICIAL TEARS OPHTH OINT OU PRN ×2 (22:08→22:09)
--- NOTE | 2017-08-09 22:12 | XRay Report ---
FINAL REPORT PROCEDURE: XR CHEST 1V AP TECHNIQUE: Chest radiograph anteroposterior view. CPT 82336 HISTORY: Code blue COMPARISON: No prior studies are available for comparison. FINDINGS: Heart: Normal. Mediastinum/Vessels: Normal. Lungs/Pleural space: Lungs are expanded and clear. There are no infiltrates, effusions or pneumothoraces. There are mild fibrotic changes.. Bony thorax: No acute osseous abnormality. Life support devices: There is an endotracheal tube in the mid trachea. There is a right-sided Port-A-Cath. The tip is in the superior vena cava.. IMPRESSION: No acute cardiopulmonary abnormality. ETT is in proper position.
[2017-08-09] MEDS: LEVOPHED 8 MG in NACL 0.9% 250ML 242 ML IV SCH (22:27)
[2017-08-09] MEDS ORDERED: NACL 0.9% 1000 ML 1,000 ML IV ONE ×2 (22:28→23:16)
--- NOTE | 2017-08-09 22:54 | Event Note ---
Date: 08/09/17 .CODE BLUE WAS CALLED ON PATIENT WHO HAD CODE MET EARLIER ON THIS EVENING FOR DROP IN BP AFTER 20MG OF HYDRALAZINE WAS GIVING I.v FOR HIGH BLOOD PRESSURE. ON ARRIVAL at the seen CPR WAS IN PROGRESS AND PATIENT WAS THEN INTUBATED . ONE DOSE OR I.V EPEINEPHRINE WAS GIVEN AND CHEST COPPRESSION DONE FOR FEW MINUTES. PATIENTS PULSE AND BLOOD PRESSURE RESTORED, WITH SBP SHOWING ELEVATED VALUE UP TO 200 TO 258 WITH DIASTOLIC BP ABOVE 120. PATIENT WAS TRASFERED TO ICU WHERE REPEAT BP SHOWED SBP OF ABOUT 96 . PATIENT KEPT ON I.V N/SALINE ,PUPILS WHERE NON REACTIVE, CT HEAD WITH NO CONTRAST ORDERD , ABG AND 12 LEAD EKG OREDERD , CBC AND CMP AND CARDIAC ENZYMES ORDERED, PROPAFOL PROTOCOL OREDERED NEEDED FOR SEDATION FOR VENTILATOR MANGMENT. CRITICAL ACRE CONSULT FOR ICU ADMISSION AND VENT MANAGMENT PLACED FOR DR. STERLING.AND PATIENT MORNITORED. DR. HAM
[2017-08-09 22:55] LABS: ABG Base Excess -4.6 mmol/L (-2.0-3.0); ABG HCO3 17.4 mmol/L (20.0-26.0); ABG Oxygen Saturation 99.5 % (95.0-99.0); ABG PCO2 23.3 mm Hg; ABG PH 7.492 pH Units (7.350-7.450)
[2017-08-09 22:59] LABS: ABG PO2 288.8 mm Hg (80.0-90.0)
[2017-08-09] MEDS ORDERED: NACL 0.9% 500 ML IV SCH (23:00)
[2017-08-09] MEDS ORDERED: NACL 0.9% 1000 ML 1,000 ML IV SCH (23:00)
--- NOTE | 2017-08-09 23:03 | Event Note ---
Date: 08/09/17 CRITICAL CARE NOTE Called about new consult; s/p CODE BLUE; admitted yesterday with AMS but able to give history; now s/p CODE BLUE; found in cardiac arrest; intubated by ER physician; ROSC attained; on levophed at 10mics/min now but still hypotensive. No emesis or overt aspiration reported CTA negative for P.E. CXR with ETT at lower border of clavicular heads No focal infiltrate Right port-a-cath with tip in SVC Afebrile Labs reviewed - target MAP 60-65mmHg acutely - bolus 1 liter IVNS - stat lactate, CRP - full AC support - wean FiO2 for sats > 94% - enteral nutrition - GI & VTE prophylaxis - care plan discussed with RN, RT and ER physician who intubated patient and actually saw her at admission yesterday ...re-evaluate in am and prn ...22' CCT
[2017-08-10 00:13] LABS: Hematocrit 31.6 % (30.3-42.9); Hemoglobin 10.3 gm/dl (10.1-14.3); Mean Corpuscular HGB Conc 33 % (30-34); Mean Corpuscular Hemoglobin 28 pg (28-32); Mean Corpuscular Volume 87 fl (79-97); Red Blood Count 3.65 M/mm3 (3.65-5.03); Red Cell Distribution Width 17.2 % (13.2-15.2); White Blood Count 4.9 K/mm3 (4.5-11.0)
[2017-08-10 00:14] LABS: Platelet Count 49 K/mm3 (140-440)
[2017-08-10 00:37] LABS: Creatine Kinase MB 2.4 ng/mL (0.0-4.0)
[2017-08-10 00:38] LABS: Alanine Aminotransferase 30 units/L (7-56); Albumin 2.5 g/dL (3.9-5); Albumin/Globulin Ratio 0.7 %; Alkaline Phosphatase 54 units/L (35-129); BUN/Creatinine Ratio 22; Blood Urea Nitrogen 13 mg/dL (7-17); Calcium 7.2 mg/dL (8.4-10.2); Carbon Dioxide 15 mmol/L (22-30); Chloride 100.9 mmol/L (98-107); Creatine Kinase 82 units/L (30-135); Glucose 124 mg/dL (65-100); Sodium 138 mmol/L (137-145); Total Protein 6.2 g/dL (6.3-8.2)
[2017-08-10 00:48] LABS: Anion Gap 25 mmol/L; Potassium 2.5 mmol/L (3.6-5.0)
[2017-08-10] MEDS ORDERED: POTASSIUM CHLORIDE FEEDTUBE ONE (01:18)
[2017-08-10] MEDS: KCL 10MEQ/100ML 10 MEQ/100 ML BAG IV SCH ×4 (01:47→05:31)
[2017-08-10] MEDS ORDERED: KCL 20MEQ/100ML 20 MEQ/100 ML BAG IV SCH (02:00)
[2017-08-10 02:35] LABS: Anisocytosis 1+; Basophils % (Manual) 0 % (0.0-1.8); Blastocytes % (Manual) 0 %; Diff Status Complete; Eosinophils % (Manual) 0 % (0.0-4.3); Platelet Estimate Consistent w Auto
--- NOTE | 2017-08-10 02:45 | XRay Report ---
FINAL REPORT PROCEDURE: XR ABDOMEN 1V AP TECHNIQUE: AP supine portable radiograph of the abdomen was obtained at 08/10/2017 01:34 (EST) . HISTORY: ngt placement COMPARISON: No prior studies are available for comparison. FINDINGS: Bowel gas pattern: Nonobstructive. Masses or calcifications: None. Bony structures: Normal. Other: Tip of the NG tube is in the antrum of the stomach.. IMPRESSION: No acute abnormality. The NG tube is in the stomach.
--- NOTE | 2017-08-10 03:59 | Cat Scan Report ---
FINAL REPORT PROCEDURE: CT HEAD/BRAIN WO CON TECHNIQUE: Computerized tomography of the head was performed without contrast material. HISTORY: unresponsive COMPARISON: 08/08/2017 FINDINGS: Since the previous examination, there has been development of diffuse bilateral cortical sulcal effacement and narrowing of the lateral ventricles. There is loss of fuller/white definition. Findings are indicative of diffuse cerebral edema possibly due to anoxia. There is no hemorrhage or midline shift. Basilar cisterns are patent. The bony calvarium and the paranasal sinuses are clear. IMPRESSION: Diffuse cerebral edema suggesting prolonged anoxic event. Findings are new since the prior examination. There is no hemorrhage or midline shift or herniation.
[2017-08-10] MEDS: LEVOPHED 8 MG in NACL 0.9% 250ML 242 ML IV SCH ×2 (04:53→11:52)
[2017-08-10 05:23] LABS: ABG Base Excess -3.9 mmol/L (-2.0-3.0); ABG HCO3 16.3 mmol/L (20.0-26.0); ABG Oxygen Saturation 99.4 % (95.0-99.0); ABG PCO2 18.3 mm Hg; ABG PH 7.567 pH Units (7.350-7.450); ABG PO2 235.2 mm Hg (80.0-90.0)
[2017-08-10] MEDS: ZOSYN/NS 3.375GM/50ML 3.375 GM/50 ML BAG IV SCH ×3 (05:28→21:38)
--- NOTE | 2017-08-10 07:21 | XRay Report ---
AP CHEST: HISTORY: Followup respiratory failure A nasogastric tube has been inserted since yesterday's exam. Endotracheal tube and right [id number] remain in good position. AP view of the chest demonstrates a normal mediastinal and cardiac contour with clear lungs and normal bony and soft tissue structures. IMPRESSION: No acute cardiopulmonary process identified.
[2017-08-10] MEDS: NEO-SYNEPHRINE 100 MG in NACL 0.9% 90 ML IV SCH ×2 (07:52→22:56)
[2017-08-10] MEDS ORDERED: VANCOMYCIN PHARMACY TO DOSE IV SCH (08:00)
--- NOTE | 2017-08-10 08:24 | Consultation ---
History of Present Illness - Reason for Consult Consult date: 08/10/17 coma - History of Present Illness patient seen in the ICU post arrest at time of admission CT of head was done and it was normal so there is no question this was not primary neuro event... based on hx suspect embolus infection/ cancer based... possibly hypercoaguable state exam shows no brain activity at all all reflexes absent rec check EEG I have dictated a full note Medications and Allergies Allergies Allergy/AdvReac Type Severity Reaction Status Date / Time promethazine HCl Allergy Shortness Verified 06/30/17 19:19 [From Phenergan] of Breath Home Medications Medication Instructions Recorded Confirmed Last Taken Type Morphine ER [Ms Contin ER] 30 mg PO BID 01/02/17 06/30/17 01/17/17 History Doxycycline [Vibramycin CAP] 100 mg PO Q12HR #28 capsule 07/03/17 Unknown Rx Levofloxacin [Levaquin] 750 mg PO QDAY #14 tablet 07/03/17 Unknown Rx Calcium Gluconate 500 mg PO BID #20 tablet 07/04/17 Unknown Rx Magnesium Chloride [Slow-Mag] 64 mg PO DAILY #20 tablet 07/04/17 Unknown Rx Phosphorus #1 [K-Phos Neutral] 250 mg PO DAILY #29 tablet 07/04/17 Unknown Rx Active Meds: Active Medications Hydralazine HCl (Apresoline) 5 mg IV Q6H PRN PRN Reason: Hypertension Last Admin: 08/09/17 13:37 Dose: 5 mg Hydrophilic Ointment (Vaseline Lip Therapy) 1 applic TP Q2H PRN PRN Reason: Dry Lips Piperacillin Sod/Tazobactam Sod (Zosyn/Ns 3.375gm/50ml) 3.375 gm in 50 mls @ 100 mls/hr IV Q8HR KIRILL PRN Reason: Protocol Last Admin: 08/10/17 05:28 Dose: 100 mls/hr Norepinephrine 8 mg/ Sodium (Chloride) 250 mls @ 3.75 mls/hr IV TITR KIRILL; 2 MCG /MIN PRN Reason: Protocol Last Titration: 08/10/17 06:20 Dose: 30 mcg/min, 56.25 mls/hr Phenylephrine HCl 100 mg/ (Sodium Chloride) 100 mls @ 3 mls/hr IV TITR KIRILL; 50 MCG/MIN PRN Reason: Protocol Last Admin: 08/10/17 07:52 Dose: 50 mcg/min, 3 mls/hr Lidocaine (Lidoderm 5%) 1 each TD Q24H KIRILL Last Admin: 08/09/17 18:54 Dose: 1 each Multi-Ingred Cream/Lotion/Oil/Oint (Artificial Tears Ophth Oint) 1 applic OU Q4HR PRN PRN Reason: Dry Eye(s) Last Admin: 08/10/17 04:46 Dose: 1 applic Sodium Chloride (Nacl 0.9% 500 Ml) 1 ml IV DIRECT KIRILL Vancomycin HCl (Vancomycin Pharmacy To Dose) 1 each IV PKCONSULT KIRILL PRN Reason: Protocol Exam - Constitutional Vitals: Temp Pulse Resp BP Pulse Ox 96.3 F L 149 H 16 89/63 99 08/10/17 04:00 08/10/17 06:56 08/10/17 06:30 08/10/17 06:56 08/10/17 06:56 Results - Labs CBC & Chem 7: 08/09/17 23:39 08/09/17 23:39 Labs: Abnormal lab results 08/09/17 08/09/17 08/09/17 Range/Units 20:28 22:12 23:39 RDW (13.2-15.2) % Plt Count (140-440) K/mm3 Lymphocytes % (Manual) (13.4-35.0) % Monocytes % (Manual) (0.0-7.3) % Lymphocytes # (Manual) (1.2-5.4) K/mm3 ABG pH 7.492 H (7.350-7.450) pH Units ABG pO2 288.8 H (80.0-90.0) mm Hg ABG HCO3 17.4 L (20.0-26.0) mmol/L ABG O2 Saturation 99.5 H (95.0-99.0) % ABG Base Excess -4.6 L (-2.0-3.0) mmol/L ABG Hemoglobin 10.3 L (12.0-16.0) gm/dl Potassium (3.6-5.0) mmol/L Carbon Dioxide (22-30) mmol/L Creatinine (0.7-1.2) mg/dL Glucose (65-100) mg/dL POC Glucose 123 H (70-105) Lactic Acid (0.7-2.0) mmol/L Calcium (8.4-10.2) mg/dL C-Reactive Protein 3.30 H (0.00-1.30) mg/dL Total Protein (6.3-8.2) g/dL Albumin (3.9-5) g/dL 08/09/17 08/09/17 08/09/17 Range/Units 23:39 23:39 23:39 RDW 17.2 H (13.2-15.2) % Plt Count 49 L (140-440) K/mm3 Lymphocytes % (Manual) 11.0 L (13.4-35.0) % Monocytes % (Manual) 17.0 H (0.0-7.3) % Lymphocytes # (Manual) 0.5 L (1.2-5.4) K/mm3 ABG pH (7.350-7.450) pH Units ABG pO2 (80.0-90.0) mm Hg ABG HCO3 (20.0-26.0) mmol/L ABG O2 Saturation (95.0-99.0) % ABG Base Excess (-2.0-3.0) mmol/L ABG Hemoglobin (12.0-16.0) gm/dl Potassium 2.5 L* D (3.6-5.0) mmol/L Carbon Dioxide 15 L D (22-30) mmol/L Creatinine 0.6 L (0.7-1.2) mg/dL Glucose 124 H (65-100) mg/dL POC Glucose (70-105) Lactic Acid 2.40 H* (0.7-2.0) mmol/L Calcium 7.2 L D (8.4-10.2) mg/dL C-Reactive Protein (0.00-1.30) mg/dL Total Protein 6.2 L D (6.3-8.2) g/dL Albumin 2.5 L (3.9-5) g/dL 08/10/17 Range/Units 04:30 RDW (13.2-15.2) % Plt Count (140-440) K/mm3 Lymphocytes % (Manual) (13.4-35.0) % Monocytes % (Manual) (0.0-7.3) % Lymphocytes # (Manual) (1.2-5.4) K/mm3 ABG pH 7.567 H (7.350-7.450) pH Units ABG pO2 235.2 H (80.0-90.0) mm Hg ABG HCO3 16.3 L (20.0-26.0) mmol/L ABG O2 Saturation 99.4 H (95.0-99.0) % ABG Base Excess -3.9 L (-2.0-3.0) mmol/L ABG Hemoglobin 10.9 L (12.0-16.0) gm/dl Potassium (3.6-5.0) mmol/L Carbon Dioxide (22-30) mmol/L Creatinine (0.7-1.2) mg/dL Glucose (65-100) mg/dL POC Glucose (70-105) Lactic Acid (0.7-2.0) mmol/L Calcium (8.4-10.2) mg/dL C-Reactive Protein (0.00-1.30) mg/dL Total Protein (6.3-8.2) g/dL Albumin (3.9-5) g/dL
[2017-08-10 08:25] LABS: Hematocrit 33.2 % (30.3-42.9); Hemoglobin 10.7 gm/dl (10.1-14.3); Mean Corpuscular HGB Conc 32 % (30-34); Mean Corpuscular Hemoglobin 28 pg (28-32); Mean Corpuscular Volume 86 fl (79-97); Red Blood Count 3.85 M/mm3 (3.65-5.03); Red Cell Distribution Width 17.9 % (13.2-15.2)
[2017-08-10 08:27] LABS: Platelet Count 69 K/mm3 (140-440)
[2017-08-10 08:45] LABS: Anion Gap 19 mmol/L; BUN/Creatinine Ratio 14; Blood Urea Nitrogen 14 mg/dL (7-17); Carbon Dioxide 17 mmol/L (22-30); Glucose 102 mg/dL (65-100); Potassium 4.2 mmol/L (3.6-5.0); Sodium 139 mmol/L (137-145)
--- NOTE | 2017-08-10 08:54 | Progress Note ---
Assessment and Plan Assessment and plan: 46-year-old woman history of metastatic breast cancer was on chemotherapy brought to the emergency room because she has been very lethargic at home. She is been confused. Sister at bedside state that a family member said that she may have passed out. Patient was recently started on fentanyl , since that time she has become very lethargic, fentanyl patch was removed. She has decreased oral intake, complaints of nausea, vomiting. She was in the hospital and her mentation was actually improving. She then had labile blood pressure, Piecer Up physician was called about elevated blood pressure, she was given hydralazine 20 mg IV. After receiving a dose, patient became hypotensive, shortly after which she had cardiac arrest. She received a few minutes of chest compressions, 1 dose of epinephrine. After which there was Rosc, she was then intubated and placed on the ventilator Cardiac Arrest -achieved ROSC after CPR Anoxic and toxic Encephalopathy, * Patient initially presented with toxic encephalopathy due to narcotics * She had CODE BLUE after which she is minimally responsive, CT of her head shows diffuse edema consistent with anoxic injury * Neurology consult pending Acute respiratory failure requiring mechanical ventilator Continue mechanical ventilator Septic shock Continue IV pressors Left breast wound, with cellulitis -Continue empiric antibiotics, will contact her surgeon to obtain wound care instructions -Continue empiric antibiotics Questionable syncope, transient metabolic imbalance D-dimer was positive, therefore had CT angiogram which was negative for PE Metastatic breast cancer on outpatient palliative chemo, ca is widely metastatic Thrombocytopenia Due to chemotherapy, stable Hypertension Optimize blood pressure meds Prognosis is very poor, will discuss possibly changing the goals of care for her to comfort care with the family The high probability of a clinically significant, sudden or life threatening deterioration of the [cardiovascular, pulmonary and neurological] system(s) required my full and direct attention, intervention and personal management. The aggregate critical care time was [35] minutes. This time is in addition to time spent performing reported procedures but includes the following: [] Data Review and interpretation [] Patient assessment and monitoring of vital signs [] Documentation [] Medication orders and management History Interval history: The patient's became very ill last night she had a CODE BLUE was intubated and transferred to the ICU Hospitalist Physical - Physical exam Narrative exam: General.: Appears chronically ill, cachectic HEENT: Moist mucous membranes, extraocular muscles intact, no lymphadenopathy Neck: supple Cardiac: S1-S2 heard Lungs: clear to auscultation bilaterally Left breast wound with dressing over it Abdomen: soft , nontender, nondistended, bowel sounds positive Extremities: no edema clubbing or cyanosis Skin: no rash or lesions Neurologic: Intubated, nonresponsive - Constitutional Vitals: Temp Pulse Resp BP Pulse Ox 101 F H 149 H 16 89/63 99 08/10/17 08:00 08/10/17 06:56 08/10/17 06:30 08/10/17 06:56 08/10/17 06:56 Results - Labs CBC & Chem 7: 08/10/17 08:10 08/10/17 08:10 Labs: Laboratory Last Values WBC 7.0 K/mm3 (4.5-11.0) 08/10/17 08:10 RBC 3.85 M/mm3 (3.65-5.03) 08/10/17 08:10 Hgb 10.7 gm/dl (10.1-14.3) 08/10/17 08:10 Hct 33.2 % (30.3-42.9) 08/10/17 08:10 MCV 86 fl (79-97) 08/10/17 08:10 MCH 28 pg (28-32) 08/10/17 08:10 MCHC 32 % (30-34) 08/10/17 08:10 RDW 17.9 % (13.2-15.2) H 08/10/17 08:10 Plt Count 69 K/mm3 (140-440) L 08/10/17 08:10 Lymph % (Auto) 12.0 % (13.4-35.0) L 08/08/17 17:54 [place] % (Auto) Sales Support Technician 08/09/17 23:39 Eos % (Auto) 0.1 % (0.0-4.3) 08/08/17 17:54 Baso % (Auto) 0.2 % (0.0-1.8) 08/08/17 17:54 Lymph # 0.7 K/mm3 (1.2-5.4) L 08/08/17 17:54 [place] # 0.8 K/mm3 (0.0-0.8) 08/08/17 17:54 Eos # 0.0 K/mm3 (0.0-0.4) 08/08/17 17:54 Baso # 0.0 K/mm3 (0.0-0.1) 08/08/17 17:54 Add Manual Diff Complete 08/09/17 23:39 Total Counted 100 08/09/17 23:39 Seg Neutrophils % 74.2 % (40.0-70.0) H 08/08/17 17:54 Seg Neuts % (Manual) 58.0 % (40.0-70.0) 08/09/17 23:39 Band Neutrophils % 14.0 % 08/09/17 23:39 Lymphocytes % (Manual) 11.0 % (13.4-35.0) L 08/09/17 23:39 Reactive Lymphs % (Man) 0 % 08/09/17 23:39 Monocytes % (Manual) 17.0 % (0.0-7.3) H 08/09/17 23:39 Eosinophils % (Manual) 0 % (0.0-4.3) 08/09/17 23:39 Basophils % (Manual) 0 % (0.0-1.8) 08/09/17 23:39 Metamyelocytes % 0 % 08/09/17 23:39 Myelocytes % 0 % 08/09/17 23:39 Promyelocytes % 0 % 08/09/17 23:39 Blast Cells % 0 % 08/09/17 23:39 Nucleated RBC % Not Reportable 08/09/17 23:39 Seg Neutrophils # 4.4 K/mm3 (1.8-7.7) 08/08/17 17:54 Seg Neutrophils # Man 2.8 K/mm3 (1.8-7.7) 08/09/17 23:39 Band Neutrophils # 0.7 K/mm3 08/09/17 23:39 Lymphocytes # (Manual) 0.5 K/mm3 (1.2-5.4) L 08/09/17 23:39 Abs React Lymphs (Man) 0.0 K/mm3 08/09/17 23:39 Monocytes # (Manual) 0.8 K/mm3 (0.0-0.8) 08/09/17 23:39 Eosinophils # (Manual) 0.0 K/mm3 (0.0-0.4) 08/09/17 23:39 Basophils # (Manual) 0.0 K/mm3 (0.0-0.1) 08/09/17 23:39 Metamyelocytes # 0.0 K/mm3 08/09/17 23:39 Myelocytes # 0.0 K/mm3 08/09/17 23:39 Promyelocytes # 0.0 K/mm3 08/09/17 23:39 Blast Cells # 0.0 K/mm3 08/09/17 23:39 WBC Morphology Not Reportable 08/09/17 23:39 Hypersegmented Neuts Not Reportable 08/09/17 23:39 Hyposegmented Neuts Not Reportable 08/09/17 23:39 Hypogranular Neuts Not Reportable 08/09/17 23:39 Smudge Cells Not Reportable 08/09/17 23:39 Toxic Granulation Not Reportable 08/09/17 23:39 Toxic Vacuolation Not Reportable 08/09/17 23:39 Dohle Bodies Not Reportable 08/09/17 23:39 Pelger-Huet Anomaly Not Reportable 08/09/17 23:39 Nora Rods Not Reportable 08/09/17 23:39 Platelet Estimate Consistent w auto 08/09/17 23:39 Clumped Platelets Not Reportable 08/09/17 23:39 Plt Clumps, EDTA Not Reportable 08/09/17 23:39 Large Platelets Not Reportable 08/09/17 23:39 Giant Platelets Not Reportable 08/09/17 23:39 Platelet Satelliting Not Reportable 08/09/17 23:39 Plt Morphology Comment Not Reportable 08/09/17 23:39 RBC Morphology Not Reportable 08/09/17 23:39 Dimorphic RBCs Not Reportable 08/09/17 23:39 Polychromasia Not Reportable 08/09/17 23:39 Hypochromasia Not Reportable 08/09/17 23:39 Poikilocytosis Not Reportable 08/09/17 23:39 Anisocytosis 1+ 08/09/17 23:39 Microcytosis Not Reportable 08/09/17 23:39 Macrocytosis Not Reportable 08/09/17 23:39 Spherocytes Not Reportable 08/09/17 23:39 Pappenheimer Bodies Not Reportable 08/09/17 23:39 Sickle Cells Not Reportable 08/09/17 23:39 Target Cells Not Reportable 08/09/17 23:39 Tear Drop Cells Not Reportable 08/09/17 23:39 Ovalocytes Not Reportable 08/09/17 23:39 Helmet Cells Not Reportable 08/09/17 23:39 Galindo-Thendara Bodies Not Reportable 08/09/17 23:39 [place] Rings Not Reportable 08/09/17 23:39 [place] Cells Not Reportable 08/09/17 23:39 Bite Cells Not Reportable 08/09/17 23:39 Crenated Cell Not Reportable 08/09/17 23:39 Elliptocytes Not Reportable 08/09/17 23:39 Acanthocytes (Spur) Not Reportable 08/09/17 23:39 Rouleaux Not Reportable 08/09/17 23:39 Hemoglobin C Crystals Not Reportable 08/09/17 23:39 Schistocytes Not Reportable 08/09/17 23:39 Malaria parasites Not Reportable 08/09/17 23:39 Simeon Bodies Not Reportable 08/09/17 23:39 Hem Pathologist Commnt No 08/09/17 23:39 PT 13.6 Sec. (12.2-14.9) 08/08/17 17:54 INR 0.99 (0.87-1.13) 08/08/17 17:54 D-Dimer 918.8 ng/mlDDU (0-234) H 08/08/17 22:46 ABG pH 7.567 pH Units (7.350-7.450) H 08/10/17 04:30 ABG pCO2 18.3 mm Hg 08/10/17 04:30 ABG pO2 235.2 mm Hg (80.0-90.0) H 08/10/17 04:30 ABG HCO3 16.3 mmol/L (20.0-26.0) L 08/10/17 04:30 ABG O2 Saturation 99.4 % (95.0-99.0) H 08/10/17 04:30 ABG O2 Content 15.6 (0.0-44) 08/10/17 04:30 ABG Base Excess -3.9 mmol/L (-2.0-3.0) L 08/10/17 04:30 ABG Hemoglobin 10.9 gm/dl (12.0-16.0) L 08/10/17 04:30 ABG Carboxyhemoglobin 1.1 % (0.0-5.0) 08/10/17 04:30 ABG Methemoglobin 0.5 % (0.0-1.5) 08/10/17 04:30 VBG pH 7.382 (7.320-7.420) 08/08/17 17:54 Oxyhemoglobin 97.8 % (95.0-99.0) 08/10/17 04:30 FiO2 50 % 08/10/17 04:30 Sodium 139 mmol/L (137-145) 08/10/17 08:10 Potassium 4.2 mmol/L (3.6-5.0) D 08/10/17 08:10 Chloride 107.0 mmol/L (98-107) 08/10/17 08:10 Carbon Dioxide 17 mmol/L (22-30) L 08/10/17 08:10 Anion Gap 19 mmol/L 08/10/17 08:10 BUN 14 mg/dL (7-17) 08/10/17 08:10 Creatinine 1.0 mg/dL (0.7-1.2) D 08/10/17 08:10 Estimated GFR > 60 ml/min 08/10/17 08:10 BUN/Creatinine Ratio 14 % 08/10/17 08:10 Glucose 102 mg/dL (65-100) H 08/10/17 08:10 POC Glucose 96 (70-105) 08/10/17 07:51 Lactic Acid 2.40 mmol/L (0.7-2.0) H* 08/09/17 23:39 Calcium 7.0 mg/dL (8.4-10.2) L 08/10/17 08:10 Phosphorus 1.40 mg/dL (2.5-4.5) L 08/10/17 08:10 Magnesium 1.30 mg/dL (1.7-2.3) L 08/10/17 08:10 Total Bilirubin 0.90 mg/dL (0.1-1.2) 08/09/17 23:39 AST 37 units/L (5-40) 08/09/17 23:39 ALT 30 units/L (7-56) 08/09/17 23:39 Alkaline Phosphatase 54 units/L (35-129) 08/09/17 23:39 Ammonia 31.0 umol/L (25-60) 08/09/17 15:22 Total Creatine Kinase 82 units/L (30-135) 08/09/17 23:39 CK-MB (CK-2) 2.4 ng/mL (0.0-4.0) 08/09/17 23:39 CK-MB (CK-2) Rel Index 2.9 (0-4) 08/09/17 23:39 Troponin T 0.010 ng/mL (0.00-0.029) 08/09/17 23:39 C-Reactive Protein 3.30 mg/dL (0.00-1.30) H 08/09/17 23:39 Total Protein 6.2 g/dL (6.3-8.2) L D 08/09/17 23:39 Albumin 2.5 g/dL (3.9-5) L 08/09/17 23:39 Albumin/Globulin Ratio 0.7 % 08/09/17 23:39 Urine Color Yellow (Yellow) 08/08/17 Unknown Urine Turbidity Clear (Clear) 08/08/17 Unknown Urine pH 6.0 (5.0-7.0) 08/08/17 Unknown Ur Specific [place] 1.009 (1.003-1.030) 08/08/17 Unknown Urine Protein <15 mg/dl mg/dL (Negative) 08/08/17 Unknown Urine Glucose (UA) Neg mg/dL (Negative) 08/08/17 Unknown Urine Ketones Tr mg/dL (Negative) 08/08/17 Unknown Urine Blood Neg (Negative) 08/08/17 Unknown Urine Nitrite Neg (Negative) 08/08/17 Unknown Urine Bilirubin Neg (Negative) 08/08/17 Unknown Urine Urobilinogen < 2.0 mg/dL (<2.0) 08/08/17 Unknown Ur Leukocyte Esterase Neg (Negative) 08/08/17 Unknown Urine WBC (Auto) 1.0 /HPF (0.0-6.0) 08/08/17 Unknown Urine RBC (Auto) 1.0 /HPF (0.0-6.0) 08/08/17 Unknown U Epithel Cells (Auto) 5.0 /HPF (0-13.0) 08/08/17 Unknown Hyaline Casts 1 /LPF 08/08/17 Unknown Urine Mucus Few /HPF 08/08/17 Unknown
--- NOTE | 2017-08-10 09:15 | Hem/Onc Progress Note ---
Assessment and Plan Metastatic breast cancer with widespread metastases. Prognosis is very poor. Supportive care only. Manager Actuarial to discuss with family today. Subjective Date of service: 08/10/17 Interval history: Events noted. Patient unresponsive. Family at bedside. CT head shows anoxic edema. Objective - Exam Narrative Exam: On ventilator. Unresponsive. - Constitutional Vitals: Last Vital Signs Temp 101 F H 08/10/17 08:00 Pulse 149 H 08/10/17 06:56 Resp 16 08/10/17 06:30 BP 89/63 08/10/17 06:56 Pulse Ox 99 08/10/17 06:56 - Labs Lab Results: Laboratory Results - last 24 hr 08/09/17 08/09/17 08/09/17 11:41 15:22 20:28 WBC RBC Hgb Hct MCV MCH MCHC RDW Plt Count [place] % (Auto) Add Manual Diff Total Counted Seg Neuts % (Manual) Band Neutrophils % Lymphocytes % (Manual) Reactive Lymphs % (Man) Monocytes % (Manual) Eosinophils % (Manual) Basophils % (Manual) Metamyelocytes % Myelocytes % Promyelocytes % Blast Cells % Nucleated RBC % Seg Neutrophils # Man Band Neutrophils # Lymphocytes # (Manual) Abs React Lymphs (Man) Monocytes # (Manual) Eosinophils # (Manual) Basophils # (Manual) Metamyelocytes # Myelocytes # Promyelocytes # Blast Cells # WBC Morphology Hypersegmented Neuts Hyposegmented Neuts Hypogranular Neuts Smudge Cells Toxic Granulation Toxic Vacuolation Dohle Bodies Pelger-Huet Anomaly Nora Rods Platelet Estimate Clumped Platelets Plt Clumps, EDTA Large Platelets Giant Platelets Platelet Satelliting Plt Morphology Comment RBC Morphology Dimorphic RBCs Polychromasia Hypochromasia Poikilocytosis Anisocytosis Microcytosis Macrocytosis Spherocytes Pappenheimer Bodies Sickle Cells Target Cells Tear Drop Cells Ovalocytes Helmet Cells Galindo-Hemet Bodies [place] Rings Pam Cells Bite Cells Crenated Cell Elliptocytes Acanthocytes (Spur) Rouleaux Hemoglobin C Crystals Schistocytes Malaria parasites Simeon Bodies Hem Pathologist Commnt ABG pH ABG pCO2 ABG pO2 ABG HCO3 ABG O2 Saturation ABG O2 Content ABG Base Excess ABG Hemoglobin ABG Carboxyhemoglobin ABG Methemoglobin Oxyhemoglobin FiO2 Sodium Potassium Chloride Carbon Dioxide Anion Gap BUN Creatinine Estimated GFR BUN/Creatinine Ratio Glucose POC Glucose 123 H Lactic Acid Calcium Phosphorus Magnesium Total Bilirubin AST ALT Alkaline Phosphatase Ammonia 31.0 Total Creatine Kinase 72 CK-MB (CK-2) 1.7 CK-MB (CK-2) Rel Index 2.3 Troponin T < 0.010 C-Reactive Protein Total Protein Albumin Albumin/Globulin Ratio 08/09/17 08/09/17 08/09/17 22:12 23:39 23:39 WBC RBC Hgb Hct MCV MCH MCHC RDW Plt Count [place] % (Auto) Add Manual Diff Total Counted Seg Neuts % (Manual) Band Neutrophils % Lymphocytes % (Manual) Reactive Lymphs % (Man) Monocytes % (Manual) Eosinophils % (Manual) Basophils % (Manual) Metamyelocytes % Myelocytes % Promyelocytes % Blast Cells % Nucleated RBC % Seg Neutrophils # Man Band Neutrophils # Lymphocytes # (Manual) Abs React Lymphs (Man) Monocytes # (Manual) Eosinophils # (Manual) Basophils # (Manual) Metamyelocytes # Myelocytes # Promyelocytes # Blast Cells # WBC Morphology Hypersegmented Neuts Hyposegmented Neuts Hypogranular Neuts Smudge Cells Toxic Granulation Toxic Vacuolation Dohle Bodies Pelger-Huet Anomaly Nora Rods Platelet Estimate Clumped Platelets Plt Clumps, EDTA Large Platelets Giant Platelets Platelet Satelliting Plt Morphology Comment RBC Morphology Dimorphic RBCs Polychromasia Hypochromasia Poikilocytosis Anisocytosis Microcytosis Macrocytosis Spherocytes Pappenheimer Bodies Sickle Cells Target Cells Tear Drop Cells Ovalocytes Helmet Cells Galindo-Hemet Bodies [place] Rings [place] Cells Bite Cells Crenated Cell Elliptocytes Acanthocytes (Spur) Rouleaux Hemoglobin C Crystals Schistocytes Malaria parasites Simeon Bodies Hem Pathologist Commnt ABG pH 7.492 H ABG pCO2 23.3 ABG pO2 288.8 H ABG HCO3 17.4 L ABG O2 Saturation 99.5 H ABG O2 Content 14.9 ABG Base Excess -4.6 L ABG Hemoglobin 10.3 L ABG Carboxyhemoglobin 1.3 ABG Methemoglobin 0.5 Oxyhemoglobin 97.7 FiO2 50 Sodium Potassium Chloride Carbon Dioxide Anion Gap BUN Creatinine Estimated GFR BUN/Creatinine Ratio Glucose POC Glucose Lactic Acid 2.40 H* Calcium Phosphorus Magnesium Total Bilirubin AST ALT Alkaline Phosphatase Ammonia Total Creatine Kinase CK-MB (CK-2) CK-MB (CK-2) Rel Index Troponin T C-Reactive Protein 3.30 H Total Protein Albumin Albumin/Globulin Ratio 08/09/17 08/09/17 08/10/17 23:39 23:39 04:30 WBC 4.9 RBC 3.65 Hgb 10.3 Hct 31.6 D MCV 87 MCH 28 MCHC 33 RDW 17.2 H Plt Count 49 L [place] % (Auto) Gasket Maker Add Manual Diff Complete Total Counted 100 Seg Neuts % (Manual) 58.0 Band Neutrophils % 14.0 Lymphocytes % (Manual) 11.0 L Reactive Lymphs % (Man) 0 Monocytes % (Manual) 17.0 H Eosinophils % (Manual) 0 Basophils % (Manual) 0 Metamyelocytes % 0 Myelocytes % 0 Promyelocytes % 0 Blast Cells % 0 Nucleated RBC % Not Reportable Seg Neutrophils # Man 2.8 Band Neutrophils # 0.7 Lymphocytes # (Manual) 0.5 L Abs React Lymphs (Man) 0.0 Monocytes # (Manual) 0.8 Eosinophils # (Manual) 0.0 Basophils # (Manual) 0.0 Metamyelocytes # 0.0 Myelocytes # 0.0 Promyelocytes # 0.0 Blast Cells # 0.0 WBC Morphology Not Reportable Hypersegmented Neuts Not Reportable Hyposegmented Neuts Not Reportable Hypogranular Neuts Not Reportable Smudge Cells Not Reportable Toxic Granulation Not Reportable Toxic Vacuolation Not Reportable Dohle Bodies Not Reportable Pelger-Huet Anomaly Not Reportable Nora Rods Not Reportable Platelet Estimate Consistent w auto Clumped Platelets Not Reportable Plt Clumps, EDTA Not Reportable Large Platelets Not Reportable Giant Platelets Not Reportable Platelet Satelliting Not Reportable Plt Morphology Comment Not Reportable RBC Morphology Not Reportable Dimorphic RBCs Not Reportable Polychromasia Not Reportable Hypochromasia Not Reportable Poikilocytosis Not Reportable Anisocytosis 1+ Microcytosis Not Reportable Macrocytosis Not Reportable Spherocytes Not Reportable Pappenheimer Bodies Not Reportable Sickle Cells Not Reportable Target Cells Not Reportable Tear Drop Cells Not Reportable Ovalocytes Not Reportable Helmet Cells Not Reportable Galindo-Hemet Bodies Not Reportable [place] Rings Not Reportable [place] Cells Not Reportable Bite Cells Not Reportable Crenated Cell Not Reportable Elliptocytes Not Reportable Acanthocytes (Spur) Not Reportable Rouleaux Not Reportable Hemoglobin C Crystals Not Reportable Schistocytes Not Reportable Malaria parasites Not Reportable S[place] Bodies Not Reportable Hem Pathologist Commnt No ABG pH 7.567 H ABG pCO2 18.3 ABG pO2 235.2 H ABG HCO3 16.3 L ABG O2 Saturation 99.4 H ABG O2 Content 15.6 ABG Base Excess -3.9 L ABG Hemoglobin 10.9 L ABG Carboxyhemoglobin 1.1 ABG Methemoglobin 0.5 Oxyhemoglobin 97.8 FiO2 50 Sodium 138 Potassium 2.5 L* D Chloride 100.9 Carbon Dioxide 15 L D Anion Gap 25 BUN 13 Creatinine 0.6 L Estimated GFR > 60 BUN/Creatinine Ratio 22 Glucose 124 H POC Glucose Lactic Acid Calcium 7.2 L D Phosphorus Magnesium Total Bilirubin 0.90 AST 37 ALT 30 Alkaline Phosphatase 54 Ammonia Total Creatine Kinase 82 CK-MB (CK-2) 2.4 CK-MB (CK-2) Rel Index 2.9 Troponin T 0.010 C-Reactive Protein Total Protein 6.2 L D Albumin 2.5 L Albumin/Globulin Ratio 0.7 08/10/17 08/10/17 08/10/17 07:51 08:10 08:10 WBC 7.0 RBC 3.85 Hgb 10.7 Hct 33.2 MCV 86 MCH 28 MCHC 32 RDW 17.9 H Plt Count 69 L [place] % (Auto) Add Manual Diff Total Counted Seg Neuts % (Manual) Band Neutrophils % Lymphocytes % (Manual) Reactive Lymphs % (Man) Monocytes % (Manual) Eosinophils % (Manual) Basophils % (Manual) Metamyelocytes % Myelocytes % Promyelocytes % Blast Cells % Nucleated RBC % Seg Neutrophils # Man Band Neutrophils # Lymphocytes # (Manual) Abs React Lymphs (Man) Monocytes # (Manual) Eosinophils # (Manual) Basophils # (Manual) Metamyelocytes # Myelocytes # Promyelocytes # Blast Cells # WBC Morphology Hypersegmented Neuts Hyposegmented Neuts Hypogranular Neuts Smudge Cells Toxic Granulation Toxic Vacuolation Dohle Bodies Pelger-Huet Anomaly Nora Rods Platelet Estimate Clumped Platelets Plt Clumps, EDTA Large Platelets Giant Platelets Platelet Satelliting Plt Morphology Comment RBC Morphology Dimorphic RBCs Polychromasia Hypochromasia Poikilocytosis Anisocytosis Microcytosis Macrocytosis Spherocytes Pappenheimer Bodies Sickle Cells Target Cells Tear Drop Cells Ovalocytes Helmet Cells Galindo-Hemet Bodies [place] Rings Pam Cells Bite Cells Crenated Cell Elliptocytes Acanthocytes (Spur) Rouleaux Hemoglobin C Crystals Schistocytes Malaria parasites Simeon Bodies Hem Pathologist Commnt ABG pH ABG pCO2 ABG pO2 ABG HCO3 ABG O2 Saturation ABG O2 Content ABG Base Excess ABG Hemoglobin ABG Carboxyhemoglobin ABG Methemoglobin Oxyhemoglobin FiO2 Sodium 139 Potassium 4.2 D Chloride 107.0 Carbon Dioxide 17 L Anion Gap 19 BUN 14 Creatinine 1.0 D Estimated GFR > 60 BUN/Creatinine Ratio 14 Glucose 102 H POC Glucose 96 Lactic Acid Calcium 7.0 L Phosphorus 1.40 L Magnesium 1.30 L Total Bilirubin AST ALT Alkaline Phosphatase Ammonia Total Creatine Kinase CK-MB (CK-2) CK-MB (CK-2) Rel Index Troponin T C-Reactive Protein Total Protein Albumin Albumin/Globulin Ratio
[2017-08-10] MEDS ORDERED: VANCOMYCIN 750 MG in NACL 0.9% 250ML 250 ML IV ONE (10:00)
[2017-08-10] MEDS ORDERED: Vasostrict 20 UNIT in NACL 0.9% 100 ML IV SCH (10:00)
[2017-08-10] MEDS ORDERED: SODIUM PHOSPHATE 45 MMOL in NACL 0.9% 500 ML 500 ML IV ONE (10:00)
[2017-08-10] MEDS ORDERED: MAGNESIUM SULFATE 3 GM in NACL 0.9% 100 ML IV ONE (10:00)
--- NOTE | 2017-08-10 10:12 | Consultation ---
History of Present Illness Consult date: 08/10/17 Requesting physician: CORDELL HAM Reason for consult: other (Acute Hypoxemic Resp Failure; S/P Cardiac Arrest; Metastatic Breast CA) History of present illness: PULMONARY/CCM CONSULT NOTE (Full dcitation # [id number]) Please see dictated notes for full details Medications and Allergies Allergies Allergy/AdvReac Type Severity Reaction Status Date / Time promethazine HCl Allergy Shortness Verified 06/30/17 19:19 [From Phenergan] of Breath Home Medications Medication Instructions Recorded Confirmed Last Taken Type Morphine ER [Ms Contin ER] 30 mg PO BID 01/02/17 06/30/17 01/17/17 History Doxycycline [Vibramycin CAP] 100 mg PO Q12HR #28 capsule 07/03/17 Unknown Rx Levofloxacin [Levaquin] 750 mg PO QDAY #14 tablet 07/03/17 Unknown Rx Calcium Gluconate 500 mg PO BID #20 tablet 07/04/17 Unknown Rx Magnesium Chloride [Slow-Mag] 64 mg PO DAILY #20 tablet 07/04/17 Unknown Rx Phosphorus #1 [K-Phos Neutral] 250 mg PO DAILY #29 tablet 07/04/17 Unknown Rx Active Meds: Active Medications Hydralazine HCl (Apresoline) 5 mg IV Q6H PRN PRN Reason: Hypertension Last Admin: 08/09/17 13:37 Dose: 5 mg Hydrophilic Ointment (Vaseline Lip Therapy) 1 applic TP Q2H PRN PRN Reason: Dry Lips Piperacillin Sod/Tazobactam Sod (Zosyn/Ns 3.375gm/50ml) 3.375 gm in 50 mls @ 100 mls/hr IV Q8HR KIRILL PRN Reason: Protocol Last Admin: 08/10/17 05:28 Dose: 100 mls/hr Norepinephrine 8 mg/ Sodium (Chloride) 250 mls @ 3.75 mls/hr IV TITR KIRILL; 2 MCG /MIN PRN Reason: Protocol Last Titration: 08/10/17 10:07 Dose: Infused Phenylephrine HCl 100 mg/ (Sodium Chloride) 100 mls @ 3 mls/hr IV TITR KIRILL; 50 MCG/MIN PRN Reason: Protocol Last Admin: 08/10/17 07:52 Dose: 50 mcg/min, 3 mls/hr Magnesium Sulfate 3 gm/ Sodium (Chloride) 106 mls @ 35.333 mls/hr IV ONCE ONE Stop: 08/10/17 12:59 Last Admin: 08/10/17 10:07 Dose: 35.333 mls/hr Sodium Phosphate 45 mmol/ (Sodium Chloride) 515 mls @ 84 mls/hr IV ONCE ONE Stop: 08/10/17 16:07 Last Admin: 08/10/17 10:08 Dose: 84 mls/hr Vancomycin HCl 750 mg/ Sodium (Chloride) 257.5 mls @ 166.667 mls/hr IV ONCE ONE Stop: 08/10/17 11:32 Vasopressin 20 unit/ Sodium (Chloride) 101 mls @ 12.12 mls/hr IV TITR KIRILL; 0.04 UNITS/MIN PRN Reason: Protocol Lidocaine (Lidoderm 5%) 1 each TD Q24H KIRILL Last Admin: 08/09/17 18:54 Dose: 1 each Multi-Ingred Cream/Lotion/Oil/Oint (Artificial Tears Ophth Oint) 1 applic OU Q4HR PRN PRN Reason: Dry Eye(s) Last Admin: 08/10/17 04:46 Dose: 1 applic Sodium Chloride (Nacl 0.9% 500 Ml) 1 ml IV DIRECT KIRILL Vancomycin HCl (Vancomycin Pharmacy To Dose) 1 each IV PKCONSULT KIRILL PRN Reason: Protocol Physical Examination Vital signs: Vital Signs Temp Pulse Resp BP Pulse Ox 98.9 F 132 H 20 171/130 92 08/08/17 17:34 08/08/17 17:34 08/08/17 17:34 08/08/17 17:34 08/08/17 17:34 Results - Laboratory Findings CBC and BMP: 08/10/17 08:10 08/10/17 08:10 ABG ABG pH 7.567 pH Units (7.350-7.450) H 08/10/17 04:30 ABG pCO2 18.3 mm Hg 08/10/17 04:30 ABG pO2 235.2 mm Hg (80.0-90.0) H 08/10/17 04:30 ABG O2 Saturation 99.4 % (95.0-99.0) H 08/10/17 04:30 PT/INR, D-dimer PT 13.6 Sec. (12.2-14.9) 08/08/17 17:54 INR 0.99 (0.87-1.13) 08/08/17 17:54 D-Dimer 918.8 ng/mlDDU (0-234) H 08/08/17 22:46 Abnormal lab findings: Abnormal Labs 08/08/17 08/09/17 08/09/17 22:46 20:28 22:12 RDW Plt Count Lymphocytes % (Manual) Monocytes % (Manual) Lymphocytes # (Manual) D-Dimer 918.8 H ABG pH 7.492 H ABG pO2 288.8 H ABG HCO3 17.4 L ABG O2 Saturation 99.5 H ABG Base Excess -4.6 L ABG Hemoglobin 10.3 L Potassium Carbon Dioxide Creatinine Glucose POC Glucose 123 H Lactic Acid Calcium Phosphorus Magnesium C-Reactive Protein Total Protein Albumin 08/09/17 08/09/17 08/09/17 23:39 23:39 23:39 RDW 17.2 H Plt Count 49 L Lymphocytes % (Manual) 11.0 L Monocytes % (Manual) 17.0 H Lymphocytes # (Manual) 0.5 L D-Dimer ABG pH ABG pO2 ABG HCO3 ABG O2 Saturation ABG Base Excess ABG Hemoglobin Potassium Carbon Dioxide Creatinine Glucose POC Glucose Lactic Acid 2.40 H* Calcium Phosphorus Magnesium C-Reactive Protein 3.30 H Total Protein Albumin 08/09/17 08/10/17 08/10/17 23:39 04:30 08:10 RDW 17.9 H Plt Count 69 L Lymphocytes % (Manual) Monocytes % (Manual) Lymphocytes # (Manual) D-Dimer ABG pH 7.567 H ABG pO2 235.2 H ABG HCO3 16.3 L ABG O2 Saturation 99.4 H ABG Base Excess -3.9 L ABG Hemoglobin 10.9 L Potassium 2.5 L* D Carbon Dioxide 15 L D Creatinine 0.6 L Glucose 124 H POC Glucose Lactic Acid Calcium 7.2 L D Phosphorus Magnesium C-Reactive Protein Total Protein 6.2 L D Albumin 2.5 L 08/10/17 08:10 RDW Plt Count Lymphocytes % (Manual) Monocytes % (Manual) Lymphocytes # (Manual) D-Dimer ABG pH ABG pO2 ABG HCO3 ABG O2 Saturation ABG Base Excess ABG Hemoglobin Potassium Carbon Dioxide 17 L Creatinine Glucose 102 H POC Glucose Lactic Acid Calcium 7.0 L Phosphorus 1.40 L Magnesium 1.30 L C-Reactive Protein Total Protein Albumin
[2017-08-10] MEDS: PEPCID IV SCH (12:04)
[2017-08-10] MEDS: DECADRON IV SCH ×2 (12:04→19:56)
[2017-08-10] MEDS ORDERED: NACL 0.9% 1000 ML ONE (14:43)
[2017-08-10] MEDS ORDERED: NACL 0.9% 500 ML ONE (14:43)
[2017-08-10] MEDS: LIDODERM 5% TD SCH (18:14)
--- NOTE | 2017-08-11 01:07 | Consultation ---
HISTORY OF PRESENT ILLNESS: This is a 46-year-old black female that was initially admitted to [facility] for nausea and vomiting. The patient had a prior medical history of metastatic breast cancer, has had a bilateral mastectomy, has had postoperative wound infection in the left breast with placement of a wound VAC over the left chest wall. She noted the hospital, was admitted on 11/08/2016. She initially presented with severe nausea and vomiting. Reviewing the Emergency Room physician's notes, she presented with complaint of neck, back, and chest pain. She was noted to be very emaciated having received chemotherapy, weight loss was present. She was initially assessed. Initial feelings were the patient had a CT scan of the head, which was negative. There was a questionable infiltrate on the chest x-ray and she was very dehydrated and had evidence of infection, had previously been treated with vancomycin. The patient was admitted to inpatient unit. Subsequent to that based on what I was told by the nurses at a certain point she was found unresponsive. She was intubated, CPR was performed. I am now seeing her being transferred to the ICU for determination of her neurological status subsequent to arrest. Evaluating her, she has negative Doll's eyes, nonreactive pupils, no gag reflex. She is flaccid throughout, does not trigger the ventilator. There is no response to pain at all, is not having any seizure activity. The patient has absent movements, absent corneals, absent Doll's, flaccid throughout. IMPRESSION: Based on my evaluation and review of the chart, she certainly did not have a primary central nervous system event such as stroke, tumor, infection, likely this is related to some form of cardiac event likely embolization with sudden cardiac arrest, anoxic encephalopathy. I do not think that we are dealing here with seizure activity or a reversible neurological condition. Prognosis unfortunately is very poor given her neurological status. Would recommend getting an EEG, I will follow the patient with you. [facility]# [id number] SILVINA/CYRUS
--- NOTE | 2017-08-11 02:52 | Consultation ---
PULMONARY AND CRITICAL CARE CONSULTATION NOTE CONSULTING PHYSICIAN: Dr. Fraser. REASON FOR CONSULTATION: Acute hypoxemic respiratory failure, status post cardiac arrest. CHIEF COMPLAINT AND HISTORY OF PRESENT ILLNESS: As follows: The patient is a 46-year-old -[place] female with a past medical history significant for metastatic breast cancer, on chemotherapy, advanced disease, wound VAC over the left upper anterior chest, presumably for a necrotic infection, admitted to the hospital the day before on the with neck and back and chest pain, apparently admitted to the medical floor. According to her , her mental status has been waxing and waning. She had a couple of syncopal episodes at home before coming in to the hospital. She could not really characterize the chest pain as to whether it was radiating to the neck or the back. While on the medical floor, according to the , she continued to deteriorate mentally. She apparently was given some hydralazine for some blood pressure, and soon after or not too long after reportedly her blood pressure dropped. A cardiac arrest was noted and the ACLS protocol was instituted. She was intubated. She was brought down into the intensive care unit. I had given orders over the phone to assist with the management and stopped by to see her. When I stopped by to see her, she was on the mechanical ventilator, really calm, nonresponsive, would be a better way to describe it obtunded. She was not on any sedation. There was no evidence of accessory respiratory muscle use. The patient reportedly had no trauma at home. She had received chemotherapy on the before admission, which is 2 days prior to admission. That is as much of the history of presentation as I have. PAST MEDICAL HISTORY: Metastatic breast cancer. PAST SURGICAL HISTORY: She has had bilateral mastectomies. MEDICATIONS: She was on at the time I stopped by to see her have been reviewed. Pertinent medications include Levophed drip that was at max dose 30 mcg per minute, Paco-Synephrine going at 50 mcg per minute, Zosyn 3.375 g IV q.8 hours, vancomycin 1 g IV q.12 to be dosed by pharmacy. ALLERGIES: PROMETHAZINE, nature of this allergy is unknown. DIET: Thin lady. According to her , she has been losing weight and has not been eating well. FAMILY AND SOCIAL HISTORY: Significant for hypertension. She is described as a never smoker, no alcohol, no tobacco, no illicit drugs use or abuse. REVIEW OF SYSTEMS: Unobtainable secondary to the patient's medical and mental condition. According to the , no prior history of seizures. No gross hematochezia or melena at home. No hematemesis. She had episodes of nausea and vomiting intermittently before admission. PHYSICAL EXAMINATION: VITAL SIGNS: At the time I stopped by, her temperature was 101 degrees Fahrenheit. At initial presentation, she was afebrile. Pulse was 149 when I stopped by, respiratory rate was set rate of 16, blood pressure was 89/63, oxygen sats were 99% that was on 40% FiO2, assist control mode of ventilation, tidal volumes 450, rate of 16, PEEP of 5. HEAD, EYES, EARS, NOSE AND THROAT: There was an orbital phimosis, that is swelling around the orbit. Pale conjunctivae. Pupils were fixed really at about 6-7 mm, and nonreactive to light. Extraocular muscle movements could not be assessed. Endotracheal tube was taped in place at the lips, taped around 20-23 cm. Grossly, there were no palpable lymph nodes in the supraclavicular or submandibular lymph node chains. No jugular venous distention. Oropharyngeal mucosa was dry. She had a wound VAC over the wound on the left upper anterior chest wall where the left breast would have been prior to mastectomy. She looked emaciated, with temporal wasting. LUNGS: Auscultation of both lung nevarez were unremarkable. Lungs were clear. She had a Port-A-Cath inserted in the right subclavian region for her chemotherapy. CARDIOVASCULAR: Heart sounds 1 and 2 are heard, regular, tachycardia at the time of my evaluation. No rubs or murmurs. ABDOMEN: Soft and flat. Bowel sounds are positive, but hypoactive. Did not appear tender. No organomegaly was palpable. EXTREMITIES: Without overt digital clubbing, cyanosis, or pedal edema. NEUROLOGIC: Nonresponsive, no spontaneous movements of her extremities. No fasciculations seen in the muscle groups. SKIN: Dry, poor skin turgor with mild tenting. There were no rashes on the skin. LABORATORY DATA: From my review are as follows: White cell count 7000, hemoglobin 10.7, hematocrit 33.2, platelet count was 69. Blood gas showed a pH of 7.57 with a pCO2 of 18, pO2 of 235 on 50% FiO2 on the above-mentioned ventilator settings. Serum sodium was 139, potassium was 4.2, chloride was 107, bicarbonate was 17, BUN was 14, creatinine was 1.0, phosphorus was 1.4, magnesium was 1.3. Blood cultures, urine cultures, sputum cultures were no growth to date. I have reviewed the chest x-ray. I have also reviewed the radiologist's interpretation. I do agree that the admission chest x-ray shows the suggestion of a left upper lobe infiltrate. Port-A-Cath, subclavian region with the tip in the distal SVC. There is a device over the left upper anterior chest wall that is probably an artifact or external device. The chest x-ray today shows the endotracheal tube with the tip at the level of the clavicular head, slight increased interstitial markings, and probably some interstitial edema. No gross pneumothorax, no gross bony fracture. I see a feeding tube coursing through the mediastinum with the tip in the probably gastroesophageal junction. A CT scan of the head and brain was done initially at presentation and the presentation CT of the head was essentially read as a negative CT, ____. However, the repeat CT scan that was done early this morning was read as showing severe cerebral edema suggesting a prolonged anoxic event. ASSESSMENT: Unfortunately, we have a critically-ill lady over here, who I feel has suffered a nonreversible neurologic injury. The assessment will be as follows: 1. Acute hypoxemic respiratory failure, on mechanical ventilatory support. 2. Status post cardiac arrest. 3. Severe anoxic encephalopathy. 4. Metastatic breast cancer. 5. Severe sepsis with shock. 6. Hypomagnesemia. 7. Hypophosphatemia. 8. Thrombocytopenia. 9. Lactic acidosis. PLAN: 1. Continue full mechanical ventilatory support. Reduce the set minute ventilation to improve the respiratory alkalosis. Continue to wean oxygen for O2 sats greater than 94%. 2. Continue vasopressor support. We will begin to wean keeping mean arterial pressures greater than or equal to about 65 mmHg. 3. Get neurological evaluation and consider actually a nuclear medicine flow scan for possible brain . 4. Replace phosphorus and magnesium. 5. Continue empiric broad-spectrum antibiotics. The patient was taking antibiotics prior to admission. A CRP level, however, is unremarkable. I doubt we are dealing with sepsis related to a true infection/bacteremia. We will address ventilator-associated pneumonia bundle daily. Aspiration precautions will be maintained. I will start her on GI prophylaxis now, as well as continue DVT prophylaxis in the form of SCDs. I will begin systemic steroids for cerebral edema. I will order an EEG. Neurology will be consulted. Flu and pneumonia vaccination will be per protocol. She is critically ill and on multiple life-sustaining interventions, but at high risk for further deterioration, including . I have spent about 40-45 minutes of critical care time without overlap and I will be going back to discuss the care plan with her in the room, including discussing possible palliative care with him. JOB# [id number] PADMINI/CYRUS
[2017-08-11] MEDS: DECADRON IV SCH ×3 (03:59→20:19)
[2017-08-11 05:20] LABS: ABG Base Excess -7.1 mmol/L (-2.0-3.0); ABG HCO3 14.9 mmol/L (20.0-26.0); ABG Oxygen Saturation 99.3 % (95.0-99.0); ABG PCO2 21.4 mm Hg; ABG PH 7.461 pH Units (7.350-7.450); ABG PO2 211.7 mm Hg (80.0-90.0)
[2017-08-11] MEDS: ZOSYN/NS 3.375GM/50ML 3.375 GM/50 ML BAG IV SCH ×3 (06:20→21:45)
[2017-08-11 06:30] LABS: Calcium 7.6 mg/dL (8.4-10.2); Chloride 129.7 mmol/L (98-107); Magnesium 3.2 mg/dL (1.7-2.3); Phosphorous 3.5 mg/dL (2.5-4.5); Potassium 3.1 mmol/L (3.6-5.0)
[2017-08-11] MEDS: LEVOPHED 8 MG in NACL 0.9% 250ML 242 ML IV SCH ×2 (07:54→15:01)
--- NOTE | 2017-08-11 08:59 | XRay Report ---
CHEST 1 VIEW INDICATION: Respiratory failure. COMPARISON: Yesterday. FINDINGS: Portable, frontal chest radiograph, 7:53 AM, 08/11/2017 reveals stable cardiomediastinal silhouette, supporting/iatrogenic devices, appearance of the lungs and osseous structures, providing for the difference in technique. CONCLUSION: No acute significant chest process or interval change. Thank you for the opportunity to participate in this patient's care.
--- NOTE | 2017-08-11 09:20 | Hem/Onc Progress Note ---
Assessment and Plan Metastatic breast cancer with widespread metastases with metastatic disease in the left chest wall. Prognosis is very poor. Supportive care only. Business Administrator to discuss with family today after brain flow study. Subjective Date of service: 08/11/17 Interval history: Events noted. Patient unresponsive. Family at bedside. CT head shows anoxic edema. for flow study today Objective - Exam Narrative Exam: On ventilator. On pressors Unresponsive. Pupils not responding - Constitutional Vitals: Last Vital Signs Temp 97.2 F L 08/11/17 08:00 Pulse 146 H 08/11/17 09:00 Resp 21 08/11/17 09:00 BP 93/63 08/11/17 09:00 Pulse Ox 100 08/11/17 09:00 - Labs Lab Results: Laboratory Results - last 24 hr 08/10/17 08/10/17 08/10/17 15:28 18:43 23:55 ABG pH ABG pCO2 ABG pO2 ABG HCO3 ABG O2 Saturation ABG O2 Content ABG Base Excess ABG Hemoglobin ABG Carboxyhemoglobin ABG Methemoglobin Oxyhemoglobin FiO2 Sodium Potassium Chloride Carbon Dioxide Anion Gap BUN Creatinine Estimated GFR BUN/Creatinine Ratio Glucose POC Glucose 124 H 144 H 136 H Calcium Phosphorus Magnesium 08/11/17 08/11/17 08/11/17 05:00 05:11 05:37 ABG pH 7.461 H ABG pCO2 21.4 ABG pO2 211.7 H ABG HCO3 14.9 L ABG O2 Saturation 99.3 H ABG O2 Content 15.9 ABG Base Excess -7.1 L ABG Hemoglobin 11.2 L ABG Carboxyhemoglobin 1.2 ABG Methemoglobin 0.5 Oxyhemoglobin 97.7 FiO2 40 Sodium 163 H* D Potassium 3.1 L D Chloride 129.7 H Carbon Dioxide 15 L Anion Gap 21 BUN 15 Creatinine 1.2 Estimated GFR 59 BUN/Creatinine Ratio 13 Glucose 122 H POC Glucose 137 H Calcium 7.6 L Phosphorus 3.50 D Magnesium 3.20 H
[2017-08-11] MEDS: PEPCID IV SCH (10:03)
[2017-08-11 10:08] LABS: Albumin 2.3 g/dL (3.9-5); Albumin/Globulin Ratio 0.6 %; Bilirubin,Total 0.7 mg/dL (0.1-1.2); Calcium 7.6 mg/dL (8.4-10.2); Chloride 129.3 mmol/L (98-107); Potassium 3.2 mmol/L (3.6-5.0); Total Protein 6.3 g/dL (6.3-8.2)
--- NOTE | 2017-08-11 11:02 | Progress Note ---
Assessment and Plan Acute hypoxemic Respiratory Failure S/P Code blue Severe Anoxic Encephalopathy Metastatic Breast CA Sepsis Syndrome with Shock Anemia Hypernatremia Hyperchloremia ZARINA - Continue full AC support - addressed VAP bundle - Continue bronchodilators and pulmonary toilet - continue empiric Antibiotics - wean oxygen for sats > 94% - wean Vasopressors for MAP > 60mmHg - turn for pressure ulcer prophylaxis per RN and protocol (Had extensive discussion with and her sister and her nurse present [At husbands request] regarding the very poor prognosis and intimating them that a brain flow scan will be ordered as well as the consequences of confirming clinically suspected brain ; sister was distraught but comforted and we prayed in a prayer [place] with sister leading the prayer - they will have further discussions) ...she is critically ikll on life sustaining interventions including MVS and at high risk for further detrioration .......45' CCT today without overlap Subjective Date of service: 08/11/17 Principal diagnosis: Acute Hypoxemic Resp Failure on MVS; s/p CODE BLUE; Metastatic Breast CA Interval history: Patient is seen today for: Acute Hypoxemic Resp Failure on MVS; s/p CODE BLUE; Metastatic Breast CA Seen and examined at bedside; 24hour events reviewed; nursing and respiratory care staff consulted; no adverse overnight events reported to me; remains obtunded; breathing is labored; pupils dilated; minimal spontaneous resp effort when placed on PSV at bedside for about 30 seconds; no emesis; no seizures; no gross bleeding Objective Vital Signs - 12hr 08/10/17 08/10/17 08/10/17 23:13 23:15 23:30 Temperature 98.3 F Pulse Rate 147 H 146 H Respiratory 22 22 Rate Blood Pressure 94/59 94/58 O2 Sat by Pulse 100 100 Oximetry 08/10/17 08/10/17 08/11/17 23:45 23:53 00:00 Temperature Pulse Rate 148 H 148 H 149 H Respiratory 22 21 Rate Blood Pressure 97/60 97/60 98/53 O2 Sat by Pulse 100 100 100 Oximetry 08/11/17 08/11/17 08/11/17 00:13 00:15 00:30 Temperature Pulse Rate 148 H 147 H 144 H Respiratory 22 22 21 Rate Blood Pressure 98/53 101/55 104/58 O2 Sat by Pulse 100 100 100 Oximetry 08/11/17 08/11/1708/11/17 00:45 01:00 01:15 Temperature Pulse Rate 145 H 145 H 142 H Respiratory 21 22 21 Rate Blood Pressure 99/60 93/55 85/56 O2 Sat by Pulse 100 100 100 Oximetry 08/11/17 08/11/17 08/11/17 01:30 01:45 02:00 Temperature Pulse Rate 141 H 143 H 143 H Respiratory 22 22 22 Rate Blood Pressure 86/62 101/59 91/56 O2 Sat by Pulse 100 100 100 Oximetry 08/11/17 08/11/17 08/11/17 02:15 02:30 02:45 Temperature Pulse Rate 133 H 134 H 144 H Respiratory 21 22 23 Rate Blood Pressure 94/53 76/49 96/66 O2 Sat by Pulse 100 100 100 Oximetry 08/11/17 08/11/17 08/11/17 03:00 03:15 03:25 Temperature 97.4 F L Pulse Rate 121 H 122 H Respiratory 21 22 Rate Blood Pressure 79/50 104/77 O2 Sat by Pulse 100 100 Oximetry 08/11/17 08/11/17 08/11/17 03:30 03:45 04:00 Temperature Pulse Rate 137 H 135 H 132 H Respiratory 22 22 22 Rate Blood Pressure 101/70 101/71 115/87 O2 Sat by Pulse 100 100 100 Oximetry 08/11/17 08/11/17 08/11/17 04:07 04:15 04:30 Temperature Pulse Rate 126 H 128 H 135 H Respiratory 21 22 Rate Blood Pressure 115/87 114/69 93/65 O2 Sat by Pulse 100 100 100 Oximetry 08/11/17 08/11/17 08/11/17 04:45 05:00 05:15 Temperature Pulse Rate 136 H 138 H 137 H Respiratory 22 21 21 Rate Blood Pressure 94/66 100/65 98/59 O2 Sat by Pulse 100 100 100 Oximetry 08/11/17 08/11/17 08/11/17 05:30 05:45 06:00 Temperature Pulse Rate 137 H 138 H 139 H Respiratory 22 22 22 Rate Blood Pressure 99/69 104/70 96/70 O2 Sat by Pulse 100 100 100 Oximetry 08/11/17 08/11/17 08/11/17 06:15 06:30 06:45 Temperature Pulse Rate 138 H 148 H 146 H Respiratory 22 21 21 Rate Blood Pressure 101/70 100/74 104/75 O2 Sat by Pulse 100 100 100 Oximetry 08/11/17 08/11/17 08/11/17 07:00 07:15 07:30 Temperature Pulse Rate 136 H 138 H 139 H Respiratory 21 22 22 Rate Blood Pressure 101/67 100/67 110/69 O2 Sat by Pulse 100 100 100 Oximetry 08/11/17 08/11/17 08/11/17 07:45 08:00 08:15 Temperature 97.2 F L Pulse Rate 138 H 147 H 146 H Respiratory 21 21 21 Rate Blood Pressure 101/66 95/49 93/51 O2 Sat by Pulse 100 100 100 Oximetry 08/11/17 08/11/17 08/11/17 08:30 08:45 09:00 Temperature Pulse Rate 146 H 146 H 146 H Respiratory 21 21 21 Rate Blood Pressure 91/59 83/60 93/63 O2 Sat by Pulse 100 100 100 Oximetry 08/11/17 08/11/17 08/11/17 09:15 09:30 09:45 Temperature Pulse Rate 144 H 146 H 137 H Respiratory 22 21 22 Rate Blood Pressure 93/63 94/65 101/69 O2 Sat by Pulse 100 100 100 Oximetry 08/11/17 08/11/17 10:00 10:18 Temperature Pulse Rate 134 H 134 H Respiratory 22 Rate Blood Pressure 100/66 83/57 O2 Sat by Pulse 100 100 Oximetry Constitutional: appears uncomfortable, other (obtunded) Eyes: non-icteric ENT: oropharynx moist, other (no JVD; No goiter) Neck: supple, no lymphadenopathy, no JVD Effort: mildly labored Ascultation: Bilateral: diminished breath sounds, rales Cardiovascular: regular rate and rhythm, PVC's noted (not sustained) Gastrointestinal: hypoactive bowel sounds, soft, non-tender, non-distended, other (No HSM) Integumentary: other (wound vac over left mastectomy wound) Extremities: no cyanosis, pulses normal, no ischemia or petechiae, edema (trace) Neurologic: unable to assess, other (pupils fixed and dilated at 6-7mm) CBC and BMP: 08/10/17 08:10 08/11/17 09:21 ABG, PT/INR, D-dimer: ABG ABG pH 7.461 pH Units (7.350-7.450) H 08/11/17 05:11 ABG pCO2 21.4 mm Hg 08/11/17 05:11 ABG pO2 211.7 mm Hg (80.0-90.0) H 08/11/17 05:11 ABG O2 Saturation 99.3 % (95.0-99.0) H 08/11/17 05:11 PT/INR, D-dimer PT 13.6 Sec. (12.2-14.9) 08/08/17 17:54 INR 0.99 (0.87-1.13) 08/08/17 17:54 D-Dimer 918.8 ng/mlDDU (0-234) H 08/08/17 22:46 Abnormal lab findings: Abnormal Labs 08/08/17 08/09/17 08/09/17 22:46 20:28 22:12 RDW Plt Count Lymphocytes % (Manual) Monocytes % (Manual) Lymphocytes # (Manual) D-Dimer 918.8 H ABG pH 7.492 H ABG pO2 288.8 H ABG HCO3 17.4 L ABG O2 Saturation 99.5 H ABG Base Excess -4.6 L ABG Hemoglobin 10.3 L Sodium Potassium Chloride Carbon Dioxide Creatinine Glucose POC Glucose 123 H Lactic Acid Calcium Phosphorus Magnesium C-Reactive Protein Total Protein Albumin 08/09/17 08/09/17 08/09/17 23:39 23:39 23:39 RDW 17.2 H Plt Count 49 L Lymphocytes % (Manual) 11.0 L Monocytes % (Manual) 17.0 H Lymphocytes # (Manual) 0.5 L D-Dimer ABG pH ABG pO2 ABG HCO3 ABG O2 Saturation ABG Base Excess ABG Hemoglobin Sodium Potassium Chloride Carbon Dioxide Creatinine Glucose POC Glucose Lactic Acid 2.40 H* Calcium Phosphorus Magnesium C-Reactive Protein 3.30 H Total Protein Albumin 08/09/17 08/10/17 08/10/17 23:39 04:30 08:10 RDW 17.9 H Plt Count 69 L Lymphocytes % (Manual) Monocytes % (Manual) Lymphocytes # (Manual) D-Dimer ABG pH 7.567 H ABG pO2 235.2 H ABG HCO3 16.3 L ABG O2 Saturation 99.4 H ABG Base Excess -3.9 L ABG Hemoglobin 10.9 L Sodium Potassium 2.5 L* D Chloride Carbon Dioxide 15 L D Creatinine 0.6 L Glucose 124 H POC Glucose Lactic Acid Calcium 7.2 L D Phosphorus Magnesium C-Reactive Protein Total Protein 6.2 L D Albumin 2.5 L 08/10/17 08/10/17 08/10/17 08:10 15:28 18:43 RDW Plt Count Lymphocytes % (Manual) Monocytes % (Manual) Lymphocytes # (Manual) D-Dimer ABG pH ABG pO2 ABG HCO3 ABG O2 Saturation ABG Base Excess ABG Hemoglobin Sodium Potassium Chloride Carbon Dioxide 17 L Creatinine Glucose 102 H POC Glucose 124 H 144 H Lactic Acid Calcium 7.0 L Phosphorus 1.40 L Magnesium 1.30 L C-Reactive Protein Total Protein Albumin 08/10/17 08/11/17 08/11/17 23:55 05:00 05:11 RDW Plt Count Lymphocytes % (Manual) Monocytes % (Manual) Lymphocytes # (Manual) D-Dimer ABG pH 7.461 H ABG pO2 211.7 H ABG HCO3 14.9 L ABG O2 Saturation 99.3 H ABG Base Excess -7.1 L ABG Hemoglobin 11.2 L Sodium 163 H* D Potassium 3.1 L D Chloride 129.7 H Carbon Dioxide 15 L Creatinine Glucose 122 H POC Glucose 136 H Lactic Acid Calcium 7.6 L Phosphorus Magnesium 3.20 H C-Reactive Protein Total Protein Albumin 08/11/17 08/11/17 05:37 09:21 RDW Plt Count Lymphocytes % (Manual) Monocytes % (Manual) Lymphocytes # (Manual) D-Dimer ABG pH ABG pO2 ABG HCO3 ABG O2 Saturation ABG Base Excess ABG Hemoglobin Sodium 163 H* Potassium 3.2 L Chloride 129.3 H Carbon Dioxide 16 L Creatinine 1.3 H Glucose 141 H POC Glucose 137 H Lactic Acid Calcium 7.6 L Phosphorus Magnesium C-Reactive Protein Total Protein Albumin 2.3 L Chest x-ray: image reviewed (lungs clear; right portacath tip in SVC)
[2017-08-11] MEDS ORDERED: POTASSIUM CHLORIDE FEEDTUBE ONE (13:00)
--- NOTE | 2017-08-11 13:58 | Progress Note ---
Assessment and Plan Assessment and plan: 46-year-old woman history of metastatic breast cancer was on chemotherapy brought to the emergency room because she has been very lethargic at home. She is been confused. Sister at bedside state that a family member said that she may have passed out. Patient was recently started on fentanyl , since that time she has become very lethargic, fentanyl patch was removed. She has decreased oral intake, complaints of nausea, vomiting. She was in the hospital and her mentation was actually improving. She then had labile blood pressure, [facility] physician was called about elevated blood pressure, she was given hydralazine 20 mg IV. After receiving a dose, patient became hypotensive, shortly after which she had cardiac arrest. She received a few minutes of chest compressions, 1 dose of epinephrine. After which there was Rosc, she was then intubated and placed on the ventilator Cardiac Arrest -achieved ROSC after CPR Anoxic and toxic Encephalopathy, * Patient initially presented with toxic encephalopathy due to narcotics * She had CODE BLUE after which she is minimally responsive, CT of her head shows diffuse edema consistent with anoxic injury * Neurology consult pending * For NM brain flow study Acute respiratory failure requiring mechanical ventilator Continue mechanical ventilator Septic shock Continue IV pressors Left breast wound, with cellulitis -Continue empiric antibiotics, will contact her surgeon to obtain wound care instructions -Continue empiric antibiotics Questionable syncope, transient metabolic imbalance D-dimer was positive, therefore had CT angiogram which was negative for PE Metastatic breast cancer on outpatient palliative chemo, ca is widely metastatic Thrombocytopenia Due to chemotherapy, stable Hypertension Optimize blood pressure meds Hypernatremia/Hypokalemia -give D5w plus KCl Prognosis is very poor, discussed the prognosis and the options with the family at the bedside; Family meeting planned for tomorrow at 1pm to discuss possible terminal extubation. Her seems to understand that the patient is most likely brain . However the patient's sister is very adamant that she is trying to save her as having a hard time coming to terms with her current condition The high probability of a clinically significant, sudden or life threatening deterioration of the [cardiovascular, pulmonary and neurological] system(s) required my full and direct attention, intervention and personal management. The aggregate critical care time was [35] minutes. This time is in addition to time spent performing reported procedures but includes the following: [] Data Review and interpretation [] Patient assessment and monitoring of vital signs [] Documentation [] Medication orders and management History Interval history: Patient remains nonresponsive, pressor and vent dependence Hospitalist Physical - Physical exam Narrative exam: General.: Appears chronically ill, cachectic HEENT: Moist mucous membranes, Neck: supple Cardiac: S1-S2 heard Lungs: Ventilated breath sounds Left breast wound with dressing over it Abdomen: soft , bowel sounds positive Extremities: no edema clubbing or cyanosis Skin: Left breast wound as described above Neurologic: Intubated, nonresponsive, no gag reflex, pupils non-reactive, - Constitutional Vitals: Temp Pulse Resp BP Pulse Ox 97.3 F L 123 H 22 103/71 100 08/11/17 12:00 08/11/17 13:45 08/11/17 13:45 08/11/17 13:45 08/11/17 13:45 Results - Labs CBC & Chem 7: 08/10/17 08:10 08/11/17 09:21 Labs: Laboratory Last Values WBC 7.0 K/mm3 (4.5-11.0) 08/10/17 08:10 RBC 3.85 M/mm3 (3.65-5.03) 08/10/17 08:10 Hgb 10.7 gm/dl (10.1-14.3) 08/10/17 08:10 Hct 33.2 % (30.3-42.9) 08/10/17 08:10 MCV 86 fl (79-97) 08/10/17 08:10 MCH 28 pg (28-32) 08/10/17 08:10 MCHC 32 % (30-34) 08/10/17 08:10 RDW 17.9 % (13.2-15.2) H 08/10/17 08:10 Plt Count 69 K/mm3 (140-440) L 08/10/17 08:10 Lymph % (Auto) 12.0 % (13.4-35.0) L 08/08/17 17:54 [place] % (Auto) Gang Boss 08/09/17 23:39 Eos % (Auto) 0.1 % (0.0-4.3) 08/08/17 17:54 Baso % (Auto) 0.2 % (0.0-1.8) 08/08/17 17:54 Lymph # 0.7 K/mm3 (1.2-5.4) L 08/08/17 17:54 [place] # 0.8 K/mm3 (0.0-0.8) 08/08/17 17:54 Eos # 0.0 K/mm3 (0.0-0.4) 08/08/17 17:54 Baso # 0.0 K/mm3 (0.0-0.1) 08/08/17 17:54 Add Manual Diff Complete 08/09/17 23:39 Total Counted 100 08/09/17 23:39 Seg Neutrophils % 74.2 % (40.0-70.0) H 08/08/17 17:54 Seg Neuts % (Manual) 58.0 % (40.0-70.0) 08/09/17 23:39 Band Neutrophils % 14.0 % 08/09/17 23:39 Lymphocytes % (Manual) 11.0 % (13.4-35.0) L 08/09/17 23:39 Reactive Lymphs % (Man) 0 % 08/09/17 23:39 Monocytes % (Manual) 17.0 % (0.0-7.3) H 08/09/17 23:39 Eosinophils % (Manual) 0 % (0.0-4.3) 08/09/17 23:39 Basophils % (Manual) 0 % (0.0-1.8) 08/09/17 23:39 Metamyelocytes % 0 % 08/09/17 23:39 Myelocytes % 0 % 08/09/17 23:39 Promyelocytes % 0 % 08/09/17 23:39 Blast Cells % 0 % 08/09/17 23:39 Nucleated RBC % Not Reportable 08/09/17 23:39 Seg Neutrophils # 4.4 K/mm3 (1.8-7.7) 08/08/17 17:54 Seg Neutrophils # Man 2.8 K/mm3 (1.8-7.7) 08/09/17 23:39 Band Neutrophils # 0.7 K/mm3 08/09/17 23:39 Lymphocytes # (Manual) 0.5 K/mm3 (1.2-5.4) L 08/09/17 23:39 Abs React Lymphs (Man) 0.0 K/mm3 08/09/17 23:39 Monocytes # (Manual) 0.8 K/mm3 (0.0-0.8) 08/09/17 23:39 Eosinophils # (Manual) 0.0 K/mm3 (0.0-0.4) 08/09/17 23:39 Basophils # (Manual) 0.0 K/mm3 (0.0-0.1) 08/09/17 23:39 Metamyelocytes # 0.0 K/mm3 08/09/17 23:39 Myelocytes # 0.0 K/mm3 08/09/17 23:39 Promyelocytes # 0.0 K/mm3 08/09/17 23:39 Blast Cells # 0.0 K/mm3 08/09/17 23:39 WBC Morphology Not Reportable 08/09/17 23:39 Hypersegmented Neuts Not Reportable 08/09/17 23:39 Hyposegmented Neuts Not Reportable 08/09/17 23:39 Hypogranular Neuts Not Reportable 08/09/17 23:39 Smudge Cells Not Reportable 08/09/17 23:39 Toxic Granulation Not Reportable 08/09/17 23:39 Toxic Vacuolation Not Reportable 08/09/17 23:39 Dohle Bodies Not Reportable 08/09/17 23:39 Pelger-Huet Anomaly Not Reportable 08/09/17 23:39 Nora Rods Not Reportable 08/09/17 23:39 Platelet Estimate Consistent w auto 08/09/17 23:39 Clumped Platelets Not Reportable 08/09/17 23:39 Plt Clumps, EDTA Not Reportable 08/09/17 23:39 Large Platelets Not Reportable 08/09/17 23:39 Giant Platelets Not Reportable 08/09/17 23:39 Platelet Satelliting Not Reportable 08/09/17 23:39 Plt Morphology Comment Not Reportable 08/09/17 23:39 RBC Morphology Not Reportable 08/09/17 23:39 Dimorphic RBCs Not Reportable 08/09/17 23:39 Polychromasia Not Reportable 08/09/17 23:39 Hypochromasia Not Reportable 08/09/17 23:39 Poikilocytosis Not Reportable 08/09/17 23:39 Anisocytosis 1+ 08/09/17 23:39 Microcytosis Not Reportable 08/09/17 23:39 Macrocytosis Not Reportable 08/09/17 23:39 Spherocytes Not Reportable 08/09/17 23:39 Pappenheimer Bodies Not Reportable 08/09/17 23:39 Sickle Cells Not Reportable 08/09/17 23:39 Target Cells Not Reportable 08/09/17 23:39 Tear Drop Cells Not Reportable 08/09/17 23:39 Ovalocytes Not Reportable 08/09/17 23:39 Helmet Cells Not Reportable 08/09/17 23:39 [place] Bodies Not Reportable 08/09/17 23:39 [place] Rings Not Reportable 08/09/17 23:39 [place] Cells Not Reportable 08/09/17 23:39 Bite Cells Not Reportable 08/09/17 23:39 Crenated Cell Not Reportable 08/09/17 23:39 Elliptocytes Not Reportable 08/09/17 23:39 Acanthocytes (Spur) Not Reportable 08/09/17 23:39 Rouleaux Not Reportable 08/09/17 23:39 Hemoglobin C Crystals Not Reportable 08/09/17 23:39 Schistocytes Not Reportable 08/09/17 23:39 Malaria parasites Not Reportable 08/09/17 23:39 [place] Bodies Not Reportable 08/09/17 23:39 Hem Pathologist Commnt No 08/09/17 23:39 PT 13.6 Sec. (12.2-14.9) 08/08/17 17:54 INR 0.99 (0.87-1.13) 08/08/17 17:54 D-Dimer 918.8 ng/mlDDU (0-234) H 08/08/17 22:46 ABG pH 7.461 pH Units (7.350-7.450) H 08/11/17 05:11 ABG pCO2 21.4 mm Hg 08/11/17 05:11 ABG pO2 211.7 mm Hg (80.0-90.0) H 08/11/17 05:11 ABG HCO3 14.9 mmol/L (20.0-26.0) L 08/11/17 05:11 ABG O2 Saturation 99.3 % (95.0-99.0) H 08/11/17 05:11 ABG O2 Content 15.9 (0.0-44) 08/11/17 05:11 ABG Base Excess -7.1 mmol/L (-2.0-3.0) L 08/11/17 05:11 ABG Hemoglobin 11.2 gm/dl (12.0-16.0) L 08/11/17 05:11 ABG Carboxyhemoglobin 1.2 % (0.0-5.0) 08/11/17 05:11 ABG Methemoglobin 0.5 % (0.0-1.5) 08/11/17 05:11 VBG pH 7.382 (7.320-7.420) 08/08/17 17:54 Oxyhemoglobin 97.7 % (95.0-99.0) 08/11/17 05:11 FiO2 40 % 08/11/17 05:11 Sodium 163 mmol/L (137-145) H* 08/11/17 09:21 Potassium 3.2 mmol/L (3.6-5.0) L 08/11/17 09:21 Chloride 129.3 mmol/L (98-107) H 08/11/17 09:21 Carbon Dioxide 16 mmol/L (22-30) L 08/11/17 09:21 Anion Gap 21 mmol/L 08/11/17 09:21 BUN 17 mg/dL (7-17) 08/11/17 09:21 Creatinine 1.3 mg/dL (0.7-1.2) H 08/11/17 09:21 Estimated GFR 54 ml/min 08/11/17 09:21 BUN/Creatinine Ratio 13 % 08/11/17 09:21 Glucose 141 mg/dL (65-100) H 08/11/17 09:21 POC Glucose 174 (70-105) H 08/11/17 12:01 Lactic Acid 2.40 mmol/L (0.7-2.0) H* 08/09/17 23:39 Calcium 7.6 mg/dL (8.4-10.2) L 08/11/17 09:21 Phosphorus 3.50 mg/dL (2.5-4.5) D 08/11/17 05:00 Magnesium 3.20 mg/dL (1.7-2.3) H 08/11/17 05:00 Total Bilirubin 0.70 mg/dL (0.1-1.2) 08/11/17 09:21 AST 27 units/L (5-40) 08/11/17 09:21 ALT 22 units/L (7-56) 08/11/17 09:21 Alkaline Phosphatase 61 units/L (35-129) 08/11/17 09:21 Ammonia 31.0 umol/L (25-60) 08/09/17 15:22 Total Creatine Kinase 82 units/L (30-135) 08/09/17 23:39 CK-MB (CK-2) 2.4 ng/mL (0.0-4.0) 08/09/17 23:39 CK-MB (CK-2) Rel Index 2.9 (0-4) 08/09/17 23:39 Troponin T 0.010 ng/mL (0.00-0.029) 08/09/17 23:39 C-Reactive Protein 3.30 mg/dL (0.00-1.30) H 08/09/17 23:39 Total Protein 6.3 g/dL (6.3-8.2) 08/11/17 09:21 Albumin 2.3 g/dL (3.9-5) L 08/11/17 09:21 Albumin/Globulin Ratio 0.6 % 08/11/17 09:21 Urine Color Yellow (Yellow) 08/08/17 Unknown Urine Turbidity Clear (Clear) 08/08/17 Unknown Urine pH 6.0 (5.0-7.0) 08/08/17 Unknown Ur Specific [place] 1.009 (1.003-1.030) 08/08/17 Unknown Urine Protein <15 mg/dl mg/dL (Negative) 08/08/17 Unknown Urine Glucose (UA) Neg mg/dL (Negative) 08/08/17 Unknown Urine Ketones Tr mg/dL (Negative) 08/08/17 Unknown Urine Blood Neg (Negative) 08/08/17 Unknown Urine Nitrite Neg (Negative) 08/08/17 Unknown Urine Bilirubin Neg (Negative) 08/08/17 Unknown Urine Urobilinogen < 2.0 mg/dL (<2.0) 08/08/17 Unknown Ur Leukocyte Esterase Neg (Negative) 08/08/17 Unknown Urine WBC (Auto) 1.0 /HPF (0.0-6.0) 08/08/17 Unknown Urine RBC (Auto) 1.0 /HPF (0.0-6.0) 08/08/17 Unknown U Epithel Cells (Auto) 5.0 /HPF (0-13.0) 08/08/17 Unknown Hyaline Casts 1 /LPF 08/08/17 Unknown Urine Mucus Few /HPF 08/08/17 Unknown
[2017-08-11] MEDS: KCL 20 MEQ in D5W 1,000 ML IV SCH (14:21)
--- NOTE | 2017-08-11 16:44 | Nuclear Medicine Report ---
BRAIN FLOW STUDY INDICATION: Anoxic brain injury. Evaluate for brain flow. COMPARISON: Yesterday's head CT. FINDINGS: Flow phase and static images of the head and neck obtained following intravenous administration of 20 mCi of technetium 99m pertechnetate. There is no evidence of intracranial blood flow. Increased activity seen in the nasal area. CONCLUSION: No intracranial blood flow identified, as described above. Correlation with clinical findings recommended. Thank you for the opportunity to participate in this patient's care.
[2017-08-11] MEDS: LIDODERM 5% TD SCH (18:58)
[2017-08-11] MEDS: NEO-SYNEPHRINE 100 MG in NACL 0.9% 90 ML IV SCH (23:27)
[2017-08-12] MEDS: KCL 20 MEQ in D5W 1,000 ML IV SCH ×2 (01:05→11:20)
[2017-08-12 04:04] LABS: ABG Base Excess -9.4 mmol/L (-2.0-3.0); ABG HCO3 14.5 mmol/L (20.0-26.0); ABG Oxygen Saturation 99.3 % (95.0-99.0); ABG PCO2 26.5 mm Hg; ABG PH 7.356 pH Units (7.350-7.450); ABG PO2 220.7 mm Hg (80.0-90.0)
[2017-08-12] MEDS: DECADRON IV SCH ×2 (04:11→10:16)
[2017-08-12] MEDS: ZOSYN/NS 3.375GM/50ML 3.375 GM/50 ML BAG IV SCH (05:39)
--- NOTE | 2017-08-12 07:56 | XRay Report ---
AP CHEST: HISTORY: Followup respiratory failure Lines and support devices remain in adequate position. Heart and mediastinal structures are within normal limits. The lungs remain clear. No acute process is noted. IMPRESSION: No change. Unremarkable AP chest.
--- NOTE | 2017-08-12 09:32 | Hem/Onc Progress Note ---
Assessment and Plan Discussed with sister about prognosis. They are to have a family meeting at 1 PM. Prognosis is very poor. Would recommend withdrawal of aggressive care Subjective Date of service: 08/12/17 Interval history: Events noted. Patient unresponsive. Sister at bedside. CT head shows anoxic edema. Brain flow study shows no flow Objective - Exam Narrative Exam: Unresponsive - Constitutional Vitals: Last Vital Signs Temp 98.6 F 08/12/17 08:00 Pulse 115 H 08/12/17 08:45 Resp 12 08/12/17 08:45 BP 95/60 08/12/17 09:23 Pulse Ox 99 08/12/17 09:23 - Labs Lab Results: Laboratory Results - last 24 hr 08/11/17 08/11/17 08/11/17 09:21 12:01 17:42 ABG pH ABG pCO2 ABG pO2 ABG HCO3 ABG O2 Saturation ABG O2 Content ABG Base Excess ABG Hemoglobin ABG Carboxyhemoglobin ABG Methemoglobin Oxyhemoglobin FiO2 Sodium 163 H* Potassium 3.2 L Chloride 129.3 H Carbon Dioxide 16 L Anion Gap 21 BUN 17 Creatinine 1.3 H Estimated GFR 54 BUN/Creatinine Ratio 13 Glucose 141 H POC Glucose 174 H 202 H Calcium 7.6 L Total Bilirubin 0.70 AST 27 ALT 22 Alkaline Phosphatase 61 Total Protein 6.3 Albumin 2.3 L Albumin/Globulin Ratio 0.6 08/12/17 08/12/17 08/12/17 00:02 03:50 05:40 ABG pH 7.356 ABG pCO2 26.5 ABG pO2 220.7 H ABG HCO3 14.5 L ABG O2 Saturation 99.3 H ABG O2 Content 16.9 ABG Base Excess -9.4 L ABG Hemoglobin 11.9 L ABG Carboxyhemoglobin 1.3 ABG Methemoglobin 0.6 Oxyhemoglobin 97.5 FiO2 40 Sodium Potassium Chloride Carbon Dioxide Anion Gap BUN Creatinine Estimated GFR BUN/Creatinine Ratio Glucose POC Glucose 236 H 250 H Calcium Total Bilirubin AST ALT Alkaline Phosphatase Total Protein Albumin Albumin/Globulin Ratio
[2017-08-12] MEDS: LEVOPHED 8 MG in NACL 0.9% 250ML 242 ML IV SCH (10:15)
[2017-08-12] MEDS: PEPCID IV SCH (10:16)
--- NOTE | 2017-08-12 10:46 | Progress Note ---
Assessment and Plan Assessment and plan: 46-year-old woman history of metastatic breast cancer was on chemotherapy brought to the emergency room because she has been very lethargic at home. She is been confused. Sister at bedside state that a family member said that she may have passed out. Patient was recently started on fentanyl , since that time she has become very lethargic, fentanyl patch was removed. She has decreased oral intake, complaints of nausea, vomiting. She was in the hospital and her mentation was actually improving. She then had labile blood pressure, Supervisor [employer] physician was called about elevated blood pressure, she was given hydralazine 20 mg IV. After receiving a dose, patient became hypotensive, shortly after which she had cardiac arrest. She received a few minutes of chest compressions, 1 dose of epinephrine. After which there was Rosc, she was then intubated and placed on the ventilator Brain NM brain flow study confirms brain Cardiac Arrest -achieved ROSC after CPR Anoxic and toxic Encephalopathy, * Patient initially presented with toxic encephalopathy due to narcotics * She had CODE BLUE after which she is minimally responsive, CT of her head shows diffuse edema consistent with anoxic injury * Neurology consult pending * For NM brain flow study Acute respiratory failure requiring mechanical ventilator Continue mechanical ventilator Septic shock Continue IV pressors Left breast wound, with cellulitis -Continue empiric antibiotics, will contact her surgeon to obtain wound care instructions -Continue empiric antibiotics Questionable syncope, transient metabolic imbalance D-dimer was positive, therefore had CT angiogram which was negative for PE Metastatic breast cancer on outpatient palliative chemo, ca is widely metastatic Thrombocytopenia Due to chemotherapy, stable Hypertension Optimize blood pressure meds Hypernatremia/Hypokalemia -give D5w plus KCl Prognosis is very poor, discussed the prognosis and the options with the family at the bedside; Family meeting planned for tomorrow at 1pm to discuss possible terminal extubation. Her seems to understand that the patient is most likely brain . However the patient's sister is very adamant that she is trying to save her as having a hard time coming to terms with her current condition The high probability of a clinically significant, sudden or life threatening deterioration of the [cardiovascular, pulmonary and neurological] system(s) required my full and direct attention, intervention and personal management. The aggregate critical care time was [35] minutes. This time is in addition to time spent performing reported procedures but includes the following: [] Data Review and interpretation [] Patient assessment and monitoring of vital signs [] Documentation [] Medication orders and management History Interval history: Patient remains nonresponsive, pressor and vent dependence Hospitalist Physical - Physical exam Narrative exam: General.: Appears chronically ill, cachectic HEENT: Moist mucous membranes, Neck: supple Cardiac: S1-S2 heard Lungs: Ventilated breath sounds Left breast wound with dressing over it Abdomen: soft , bowel sounds positive Extremities: no edema clubbing or cyanosis Skin: Left breast wound as described above Neurologic: Intubated, nonresponsive, no gag reflex, pupils non-reactive, - Constitutional Vitals: Temp Pulse Resp BP Pulse Ox 98.6 F 114 H 12 89/52 99 08/12/17 08:00 08/12/17 10:15 08/12/17 10:15 08/12/17 10:15 08/12/17 10:15 Results - Labs CBC & Chem 7: 08/10/17 08:10 08/11/17 09:21 Labs: Laboratory Last Values WBC 7.0 K/mm3 (4.5-11.0) 08/10/17 08:10 RBC 3.85 M/mm3 (3.65-5.03) 08/10/17 08:10 Hgb 10.7 gm/dl (10.1-14.3) 08/10/17 08:10 Hct 33.2 % (30.3-42.9) 08/10/17 08:10 MCV 86 fl (79-97) 08/10/17 08:10 MCH 28 pg (28-32) 08/10/17 08:10 MCHC 32 % (30-34) 08/10/17 08:10 RDW 17.9 % (13.2-15.2) H 08/10/17 08:10 Plt Count 69 K/mm3 (140-440) L 08/10/17 08:10 Lymph % (Auto) 12.0 % (13.4-35.0) L 08/08/17 17:54 [place] % (Auto) 3 Year Olds Preschool Teacher 08/09/17 23:39 Eos % (Auto) 0.1 % (0.0-4.3) 08/08/17 17:54 Baso % (Auto) 0.2 % (0.0-1.8) 08/08/17 17:54 Lymph # 0.7 K/mm3 (1.2-5.4) L 08/08/17 17:54 [place] # 0.8 K/mm3 (0.0-0.8) 08/08/17 17:54 Eos # 0.0 K/mm3 (0.0-0.4) 08/08/17 17:54 Baso # 0.0 K/mm3 (0.0-0.1) 08/08/17 17:54 Add Manual Diff Complete 08/09/17 23:39 Total Counted 100 08/09/17 23:39 Seg Neutrophils % 74.2 % (40.0-70.0) H 08/08/17 17:54 Seg Neuts % (Manual) 58.0 % (40.0-70.0) 08/09/17 23:39 Band Neutrophils % 14.0 % 08/09/17 23:39 Lymphocytes % (Manual) 11.0 % (13.4-35.0) L 08/09/17 23:39 Reactive Lymphs % (Man) 0 % 08/09/17 23:39 Monocytes % (Manual) 17.0 % (0.0-7.3) H 08/09/17 23:39 Eosinophils % (Manual) 0 % (0.0-4.3) 08/09/17 23:39 Basophils % (Manual) 0 % (0.0-1.8) 08/09/17 23:39 Metamyelocytes % 0 % 08/09/17 23:39 Myelocytes % 0 % 08/09/17 23:39 Promyelocytes % 0 % 08/09/17 23:39 Blast Cells % 0 % 08/09/17 23:39 Nucleated RBC % Not Reportable 08/09/17 23:39 Seg Neutrophils # 4.4 K/mm3 (1.8-7.7) 08/08/17 17:54 Seg Neutrophils # Man 2.8 K/mm3 (1.8-7.7) 08/09/17 23:39 Band Neutrophils # 0.7 K/mm3 08/09/17 23:39 Lymphocytes # (Manual) 0.5 K/mm3 (1.2-5.4) L 08/09/17 23:39 Abs React Lymphs (Man) 0.0 K/mm3 08/09/17 23:39 Monocytes # (Manual) 0.8 K/mm3 (0.0-0.8) 08/09/17 23:39 Eosinophils # (Manual) 0.0 K/mm3 (0.0-0.4) 08/09/17 23:39 Basophils # (Manual) 0.0 K/mm3 (0.0-0.1) 08/09/17 23:39 Metamyelocytes # 0.0 K/mm3 08/09/17 23:39 Myelocytes # 0.0 K/mm3 08/09/17 23:39 Promyelocytes # 0.0 K/mm3 08/09/17 23:39 Blast Cells # 0.0 K/mm3 08/09/17 23:39 WBC Morphology Not Reportable 08/09/17 23:39 Hypersegmented Neuts Not Reportable 08/09/17 23:39 Hyposegmented Neuts Not Reportable 08/09/17 23:39 Hypogranular Neuts Not Reportable 08/09/17 23:39 Smudge Cells Not Reportable 08/09/17 23:39 Toxic Granulation Not Reportable 08/09/17 23:39 Toxic Vacuolation Not Reportable 08/09/17 23:39 Dohle Bodies Not Reportable 08/09/17 23:39 Pelger-Huet Anomaly Not Reportable 08/09/17 23:39 Nora Rods Not Reportable 08/09/17 23:39 Platelet Estimate Consistent w auto 08/09/17 23:39 Clumped Platelets Not Reportable 08/09/17 23:39 Plt Clumps, EDTA Not Reportable 08/09/17 23:39 Large Platelets Not Reportable 08/09/17 23:39 Giant Platelets Not Reportable 08/09/17 23:39 Platelet Satelliting Not Reportable 08/09/17 23:39 Plt Morphology Comment Not Reportable 08/09/17 23:39 RBC Morphology Not Reportable 08/09/17 23:39 Dimorphic RBCs Not Reportable 08/09/17 23:39 Polychromasia Not Reportable 08/09/17 23:39 Hypochromasia Not Reportable 08/09/17 23:39 Poikilocytosis Not Reportable 08/09/17 23:39 Anisocytosis 1+ 08/09/17 23:39 Microcytosis Not Reportable 08/09/17 23:39 Macrocytosis Not Reportable 08/09/17 23:39 Spherocytes Not Reportable 08/09/17 23:39 Pappenheimer Bodies Not Reportable 08/09/17 23:39 Sickle Cells Not Reportable 08/09/17 23:39 Target Cells Not Reportable 08/09/17 23:39 Tear Drop Cells Not Reportable 08/09/17 23:39 Ovalocytes Not Reportable 08/09/17 23:39 Helmet Cells Not Reportable 08/09/17 23:39 [place] Bodies Not Reportable 08/09/17 23:39 [place] Rings Not Reportable 08/09/17 23:39 Holder Cells Not Reportable 08/09/17 23:39 Bite Cells Not Reportable 08/09/17 23:39 Crenated Cell Not Reportable 08/09/17 23:39 Elliptocytes Not Reportable 08/09/17 23:39 Acanthocytes (Spur) Not Reportable 08/09/17 23:39 Rouleaux Not Reportable 08/09/17 23:39 Hemoglobin C Crystals Not Reportable 08/09/17 23:39 Schistocytes Not Reportable 08/09/17 23:39 Malaria parasites Not Reportable 08/09/17 23:39 Simeon Bodies Not Reportable 08/09/17 23:39 Hem Pathologist Commnt No 08/09/17 23:39 PT 13.6 Sec. (12.2-14.9) 08/08/17 17:54 INR 0.99 (0.87-1.13) 08/08/17 17:54 D-Dimer 918.8 ng/mlDDU (0-234) H 08/08/17 22:46 ABG pH 7.356 pH Units (7.350-7.450) 08/12/17 03:50 ABG pCO2 26.5 mm Hg 08/12/17 03:50 ABG pO2 220.7 mm Hg (80.0-90.0) H 08/12/17 03:50 ABG HCO3 14.5 mmol/L (20.0-26.0) L 08/12/17 03:50 ABG O2 Saturation 99.3 % (95.0-99.0) H 08/12/17 03:50 ABG O2 Content 16.9 (0.0-44) 08/12/17 03:50 ABG Base Excess -9.4 mmol/L (-2.0-3.0) L 08/12/17 03:50 ABG Hemoglobin 11.9 gm/dl (12.0-16.0) L 08/12/17 03:50 ABG Carboxyhemoglobin 1.3 % (0.0-5.0) 08/12/17 03:50 ABG Methemoglobin 0.6 % (0.0-1.5) 08/12/17 03:50 VBG pH 7.382 (7.320-7.420) 08/08/17 17:54 Oxyhemoglobin 97.5 % (95.0-99.0) 08/12/17 03:50 FiO2 40 % 08/12/17 03:50 Sodium 163 mmol/L (137-145) H* 08/11/17 09:21 Potassium 3.2 mmol/L (3.6-5.0) L 08/11/17 09:21 Chloride 129.3 mmol/L (98-107) H 08/11/17 09:21 Carbon Dioxide 16 mmol/L (22-30) L 08/11/17 09:21 Anion Gap 21 mmol/L 08/11/17 09:21 BUN 17 mg/dL (7-17) 08/11/17 09:21 Creatinine 1.3 mg/dL (0.7-1.2) H 08/11/17 09:21 Estimated GFR 54 ml/min 08/11/17 09:21 BUN/Creatinine Ratio 13 % 08/11/17 09:21 Glucose 141 mg/dL (65-100) H 08/11/17 09:21 POC Glucose 250 (70-105) H 08/12/17 05:40 Lactic Acid 2.40 mmol/L (0.7-2.0) H* 08/09/17 23:39 Calcium 7.6 mg/dL (8.4-10.2) L 08/11/17 09:21 Phosphorus 3.50 mg/dL (2.5-4.5) D 08/11/17 05:00 Magnesium 3.20 mg/dL (1.7-2.3) H 08/11/17 05:00 Total Bilirubin 0.70 mg/dL (0.1-1.2) 08/11/17 09:21 AST 27 units/L (5-40) 08/11/17 09:21 ALT 22 units/L (7-56) 08/11/17 09:21 Alkaline Phosphatase 61 units/L (35-129) 08/11/17 09:21 Ammonia 31.0 umol/L (25-60) 08/09/17 15:22 Total Creatine Kinase 82 units/L (30-135) 08/09/17 23:39 CK-MB (CK-2) 2.4 ng/mL (0.0-4.0) 08/09/17 23:39 CK-MB (CK-2) Rel Index 2.9 (0-4) 08/09/17 23:39 Troponin T 0.010 ng/mL (0.00-0.029) 08/09/17 23:39 C-Reactive Protein 3.30 mg/dL (0.00-1.30) H 08/09/17 23:39 Total Protein 6.3 g/dL (6.3-8.2) 08/11/17 09:21 Albumin 2.3 g/dL (3.9-5) L 08/11/17 09:21 Albumin/Globulin Ratio 0.6 % 08/11/17 09:21 Urine Color Yellow (Yellow) 08/08/17 Unknown Urine Turbidity Clear (Clear) 08/08/17 Unknown Urine pH 6.0 (5.0-7.0) 08/08/17 Unknown Ur Specific [place] 1.009 (1.003-1.030) 08/08/17 Unknown Urine Protein <15 mg/dl mg/dL (Negative) 08/08/17 Unknown Urine Glucose (UA) Neg mg/dL (Negative) 08/08/17 Unknown Urine Ketones Tr mg/dL (Negative) 08/08/17 Unknown Urine Blood Neg (Negative) 08/08/17 Unknown Urine Nitrite Neg (Negative) 08/08/17 Unknown Urine Bilirubin Neg (Negative) 08/08/17 Unknown Urine Urobilinogen < 2.0 mg/dL (<2.0) 08/08/17 Unknown Ur Leukocyte Esterase Neg (Negative) 08/08/17 Unknown Urine WBC (Auto) 1.0 /HPF (0.0-6.0) 08/08/17 Unknown Urine RBC (Auto) 1.0 /HPF (0.0-6.0) 08/08/17 Unknown U Epithel Cells (Auto) 5.0 /HPF (0-13.0) 08/08/17 Unknown Hyaline Casts 1 /LPF 08/08/17 Unknown Urine Mucus Few /HPF 08/08/17 Unknown
--- NOTE | 2017-08-12 11:40 | Progress Note ---
Assessment and Plan Acute hypoxemic Respiratory Failure S/P Code blue Severe Anoxic Encephalopathy Metastatic Breast CA Sepsis Syndrome with Shock Anemia Hypernatremia Hyperchloremia ZARINA - Continue full AC support - addressed VAP bundle - Continue bronchodilators and pulmonary toilet - continue empiric Antibiotics - wean oxygen for sats > 94% - wean Vasopressors for MAP > 60mmHg - turn for pressure ulcer prophylaxis per RN and protocol ...she is critically ikll on life sustaining interventions including MVS and at high risk for further detrioration .......45' CCT today without overlap Subjective Date of service: 08/12/17 Principal diagnosis: Acute Hypoxemic Resp Failure on MVS; s/p CODE BLUE; Metastatic Breast CA Interval history: Patient is seen today for: Acute Hypoxemic Resp Failure on MVS; s/p CODE BLUE; Metastatic Breast CA Seen and examined at bedside; 24hour events reviewed; nursing and respiratory care staff consulted; no adverse overnight events reported to me; Objective Vital Signs - 12hr 08/11/17 08/12/17 08/12/17 23:45 00:00 00:15 Temperature Pulse Rate 102 H 102 H 100 H Respiratory 12 12 12 Rate Blood Pressure 140/101 139/100 137/97 O2 Sat by Pulse 100 100 100 Oximetry 08/12/17 08/12/17 08/12/17 00:30 00:45 01:00 Temperature Pulse Rate 100 H 92 H 98 H Respiratory 12 12 12 Rate Blood Pressure 145/106 145/106 142/105 O2 Sat by Pulse 100 100 100 Oximetry 08/12/17 08/12/17 08/12/17 01:15 01:30 01:45 Temperature Pulse Rate 102 H 101 H 101 H Respiratory 12 12 12 Rate Blood Pressure 151/101 141/101 145/105 O2 Sat by Pulse 100 100 100 Oximetry 08/12/17 08/12/17 08/12/17 02:00 02:15 02:30 Temperature Pulse Rate 102 H 102 H 103 H Respiratory 12 12 12 Rate Blood Pressure 147/101 136/94 144/100 O2 Sat by Pulse 100 100 100 Oximetry 08/12/17 08/12/17 08/12/17 02:45 03:00 03:02 Temperature Pulse Rate 103 H 102 H 103 H Respiratory 12 12 Rate Blood Pressure 144/95 140/92 144/95 O2 Sat by Pulse 100 100 100 Oximetry 08/12/17 08/12/1708/12/17 03:15 03:31 03:45 Temperature Pulse Rate 102 H 103 H 98 H Respiratory 12 12 11 L Rate Blood Pressure 144/95 144/95 138/97 O2 Sat by Pulse 100 100 100 Oximetry 08/12/17 08/12/17 08/12/17 04:00 04:15 04:30 Temperature 95.8 F L Pulse Rate 99 H 102 H 101 H Respiratory 12 12 12 Rate Blood Pressure 140/103 149/108 149/108 O2 Sat by Pulse 100 100 100 Oximetry 08/12/17 08/12/17 08/12/17 04:45 05:00 05:15 Temperature Pulse Rate 101 H 103 H 104 H Respiratory 12 12 12 Rate Blood Pressure 131/93 131/93 125/91 O2 Sat by Pulse 100 100 100 Oximetry 08/12/17 08/12/17 08/12/17 05:30 05:45 06:00 Temperature Pulse Rate 105 H 114 H 109 H Respiratory 12 12 12 Rate Blood Pressure 117/90 132/104 113/85 O2 Sat by Pulse 100 100 100 Oximetry 08/12/17 08/12/17 08/12/17 06:15 06:30 06:45 Temperature Pulse Rate 105 H 103 H 123 H Respiratory 12 12 12 Rate Blood Pressure 111/77 96/74 161/113 O2 Sat by Pulse 100 100 100 Oximetry 08/12/17 08/12/17 08/12/17 07:00 07:10 07:15 Temperature Pulse Rate 110 H 91 H Respiratory 12 12 Rate Blood Pressure 103/70 68/39 O2 Sat by Pulse 100 100 100 Oximetry 08/12/17 08/12/17 08/12/17 07:30 07:45 08:00 Temperature 98.6 F Pulse Rate 107 H 114 H 115 H Respiratory 12 12 12 Rate Blood Pressure 97/73 112/73 109/76 O2 Sat by Pulse 100 100 100 Oximetry 08/12/17 08/12/17 08/12/17 08:15 08:30 08:45 Temperature Pulse Rate 130 H 118 H 115 H Respiratory 12 12 12 Rate Blood Pressure 160/116 100/70 98/66 O2 Sat by Pulse 100 100 100 Oximetry 08/12/17 08/12/17 08/12/17 09:00 09:15 09:23 Temperature Pulse Rate 115 H 114 H Respiratory 12 12 Rate Blood Pressure 100/63 95/60 95/60 O2 Sat by Pulse 100 100 99 Oximetry 08/12/17 08/12/17 08/12/17 09:30 09:45 10:00 Temperature Pulse Rate 114 H 114 H 115 H Respiratory 12 12 12 Rate Blood Pressure 92/59 85/58 85/58 O2 Sat by Pulse 100 100 100 Oximetry 08/12/17 10:15 Temperature Pulse Rate 114 H Respiratory 12 Rate Blood Pressure 89/52 O2 Sat by Pulse 99 Oximetry CBC and BMP: 08/10/17 08:10 08/11/17 09:21 ABG, PT/INR, D-dimer: ABG ABG pH 7.356 pH Units (7.350-7.450) 08/12/17 03:50 ABG pCO2 26.5 mm Hg 08/12/17 03:50 ABG pO2 220.7 mm Hg (80.0-90.0) H 08/12/17 03:50 ABG O2 Saturation 99.3 % (95.0-99.0) H 08/12/17 03:50 PT/INR, D-dimer PT 13.6 Sec. (12.2-14.9) 08/08/17 17:54 INR 0.99 (0.87-1.13) 08/08/17 17:54 D-Dimer 918.8 ng/mlDDU (0-234) H 08/08/17 22:46 Abnormal lab findings: Abnormal Labs 08/08/17 08/09/17 08/09/17 22:46 20:28 22:12 RDW Plt Count Lymphocytes % (Manual) Monocytes % (Manual) Lymphocytes # (Manual) D-Dimer 918.8 H ABG pH 7.492 H ABG pO2 288.8 H ABG HCO3 17.4 L ABG O2 Saturation 99.5 H ABG Base Excess -4.6 L ABG Hemoglobin 10.3 L Sodium Potassium Chloride Carbon Dioxide Creatinine Glucose POC Glucose 123 H Lactic Acid Calcium Phosphorus Magnesium C-Reactive Protein Total Protein Albumin 08/09/17 08/09/17 08/09/17 23:39 23:39 23:39 RDW 17.2 H Plt Count 49 L Lymphocytes % (Manual) 11.0 L Monocytes % (Manual) 17.0 H Lymphocytes # (Manual) 0.5 L D-Dimer ABG pH ABG pO2 ABG HCO3 ABG O2 Saturation ABG Base Excess ABG Hemoglobin Sodium Potassium Chloride Carbon Dioxide Creatinine Glucose POC Glucose Lactic Acid 2.40 H* Calcium Phosphorus Magnesium C-Reactive Protein 3.30 H Total Protein Albumin 08/09/17 08/10/17 08/10/17 23:39 04:30 08:10 RDW 17.9 H Plt Count 69 L Lymphocytes % (Manual) Monocytes % (Manual) Lymphocytes # (Manual) D-Dimer ABG pH 7.567 H ABG pO2 235.2 H ABG HCO3 16.3 L ABG O2 Saturation 99.4 H ABG Base Excess -3.9 L ABG Hemoglobin 10.9 L Sodium Potassium 2.5 L* D Chloride Carbon Dioxide 15 L D Creatinine 0.6 L Glucose 124 H POC Glucose Lactic Acid Calcium 7.2 L D Phosphorus Magnesium C-Reactive Protein Total Protein 6.2 L D Albumin 2.5 L 08/10/17 08/10/17 08/10/17 08:10 15:28 18:43 RDW Plt Count Lymphocytes % (Manual) Monocytes % (Manual) Lymphocytes # (Manual) D-Dimer ABG pH ABG pO2 ABG HCO3 ABG O2 Saturation ABG Base Excess ABG Hemoglobin Sodium Potassium Chloride Carbon Dioxide 17 L Creatinine Glucose 102 H POC Glucose 124 H 144 H Lactic Acid Calcium 7.0 L Phosphorus 1.40 L Magnesium 1.30 L C-Reactive Protein Total Protein Albumin 08/10/17 08/11/17 08/11/17 23:55 05:00 05:11 RDW Plt Count Lymphocytes % (Manual) Monocytes % (Manual) Lymphocytes # (Manual) D-Dimer ABG pH 7.461 H ABG pO2 211.7 H ABG HCO3 14.9 L ABG O2 Saturation 99.3 H ABG Base Excess -7.1 L ABG Hemoglobin 11.2 L Sodium 163 H* D Potassium 3.1 L D Chloride 129.7 H Carbon Dioxide 15 L Creatinine Glucose 122 H POC Glucose 136 H Lactic Acid Calcium 7.6 L Phosphorus Magnesium 3.20 H C-Reactive Protein Total Protein Albumin 08/11/17 08/11/17 08/11/17 05:37 09:21 12:01 RDW Plt Count Lymphocytes % (Manual) Monocytes % (Manual) Lymphocytes # (Manual) D-Dimer ABG pH ABG pO2 ABG HCO3 ABG O2 Saturation ABG Base Excess ABG Hemoglobin Sodium 163 H* Potassium 3.2 L Chloride 129.3 H Carbon Dioxide 16 L Creatinine 1.3 H Glucose 141 H POC Glucose 137 H 174 H Lactic Acid Calcium 7.6 L Phosphorus Magnesium C-Reactive Protein Total Protein Albumin 2.3 L 08/11/17 08/12/17 08/12/17 17:42 00:02 03:50 RDW Plt Count Lymphocytes % (Manual) Monocytes % (Manual) Lymphocytes # (Manual) D-Dimer ABG pH ABG pO2 220.7 H ABG HCO3 14.5 L ABG O2 Saturation 99.3 H ABG Base Excess -9.4 L ABG Hemoglobin 11.9 L Sodium Potassium Chloride Carbon Dioxide Creatinine Glucose POC Glucose 202 H 236 H Lactic Acid Calcium Phosphorus Magnesium C-Reactive Protein Total Protein Albumin 08/12/17 05:40 RDW Plt Count Lymphocytes % (Manual) Monocytes % (Manual) Lymphocytes # (Manual) D-Dimer ABG pH ABG pO2 ABG HCO3 ABG O2 Saturation ABG Base Excess ABG Hemoglobin Sodium Potassium Chloride Carbon Dioxide Creatinine Glucose POC Glucose 250 H Lactic Acid Calcium Phosphorus Magnesium C-Reactive Protein Total Protein Albumin
--- NOTE | 2017-08-12 16:46 | Death Note ---
Note Date of : 08/12/17 Time of : 16:46 Time Pronounced: 16:46
--- NOTE | 2017-08-12 16:58 | Death Summary ---
Summary - Providers Date of service: 08/12/17 Consults: 08/09/17 01:04 Consult to Wound/ET Nurse [CONS] Routine Reason For Exam: wound eval 08/09/17 01:13 Consult to Physician [CONS] Routine Consulting Provider: JOAQUIN UNDERWOOD Reason For Exam: BREAST CCA Notified:: receptionist secretary pl call 08/09/17 10:05 Speech Therapy Evaluation and Treat [CONS] Routine Reason For Exam: dysphagia 08/09/17 22:09 Consult to Dietitian/Nutrition [CONS] Routine Physician Instructions: Reason For Exam: Reason for Consult: Evaluate nutritional intake Consult to Dietitian/Nutrition [CONS] Routine Physician Instructions: Reason For Exam: Reason for Consult: Write/Manage TPN/PPN 08/09/17 22:51 Consult to Physician [CONS] Routine Consulting Provider: CORDELL HAM Reason For Exam: Vent, s/p cardiac arrest Place consult to:: Adrien Notified:: Mehdi Phone number called:: [phone] Was contact made?: Yes If yes, spoke with:: mehdi Time called:: 22:50 08/09/17 23:14 Consult to Physician [CONS] Routine Consulting Provider: BUSTER GALVIN Reason For Exam: ICU ADMISSION AND VENTILATOR MANAGMENT Place consult to:: BUSTER STERLING Notified:: Mehdi Phone number called:: [phone] Was contact made?: Yes 08/10/17 07:20 Consult to Physician [CONS] Routine Consulting Provider: NICOLASA MEJIA Reason For Exam: anoxic brain injury with edema Place consult to:: bunny Notified:: yes Phone number called:: [phone] Was contact made?: Yes If yes, spoke with:: answering service Time called:: 07:42 Comment:: jin Attending: SIERRA DIAMOND MD - summary Date of admission: 08/08/17 21:51 Date of : 08/12/17 Significant findings: 46-year-old woman history of metastatic breast cancer was on chemotherapy brought to the emergency room because she has been very lethargic at home. She is been confused. Sister at bedside state that a family member said that she may have passed out. Patient was recently started on fentanyl , since that time she has become very lethargic, fentanyl patch was removed. She has decreased oral intake, complaints of nausea, vomiting. She was in the hospital and her mentation was actually improving. She then had labile blood pressure, she received IV blood pressure medications when necessary. , she was then found to be hypotensive, she was being resuscitated, then she became pulseless. She had cardiac arrest, she then had CPR after which she had Rosc. She was intubated and ventilated and transferred to the ICU. Her blood pressures continue to be labile for short period of time , with a fluctuating from high to low. Shortly after which she became profoundly hypotensive requiring 2 pressors. Her mental status did not improve. She had absence of brainstem reflexes, she then wants him to have a CT of her brain that showed diffuse anoxic injury with brain edema. She receives Decadron, she then went on to have a nuclear medicine brain flow which showed absence of blood flow to the brain therefore confirming brain . She was empirically treated with antibiotics, but upon exam of the patient she had a chronic left breast wound, there was no obvious source of sepsis, therefore shock was most likely distributive in nature, as hypotension was most likely because the patient was already brain . Multiple conversations were had with the family by the hospitalist, myself and the biodiesel production technician. Also risk management and the director of case management along with her caseworker intake met with the patient's in these meetings multiple times. The family struggled with understanding that the patient is brain and therefore legally and with resistance to removal of life support. The demise of the patient's was again explained to the family that she is , after confirming with the DIRECTOR ADULT and hospital administration, it was decided that it is unethical to keep a corpse that is brain on life support. Therefore the decision was made to remove all life support. Diagnosis Anoxic encephalopathy Cardiac arrest Stage 4 metastatic breast ca Acute respiratory failure requiring mechanical ventilator Distributive shock Left breast wound Thrombocytopenia Hypertension Hypernatremia Hypokalemia Pertinent studies: Nuclear medicine, brain flow study shows absence of blood flow to the brain
[2017-08-12 18:37] VITALS: BP 140/102
[2017-08-13] MEDS ORDERED: VANCOMYCIN/NS 1 GM/250 ML 1 GM/250 ML BAG IV SCH (20:00)
== END 2017-08-12 23:52 | DRG 871 ==
LOC: ED 17:30 → 3A 21:51 → 4A 08-09 01:36 → CC1 08-09 22:00
PROVIDERS: ADMIT Internal Medicine; ATTEND Internal Medicine
PROC: 5A1945Z Respiratory Ventilation, 24-96 Consecutive Hours (ICD-10-PCS; principal; 2017-08-09)
PROC: 4A033R1 Measurement of Arterial Saturation, Peripheral, Percutaneous Approach (ICD-10-PCS; 2017-08-09)
PROC: 0BH17EZ Insertion of Endotracheal Airway into Trachea, Via Natural or Artificial Opening (ICD-10-PCS; 2017-08-09)
PROC: 5A12012 Performance of Cardiac Output, Single, Manual (ICD-10-PCS; 2017-08-11)
DX: A41.9 Sepsis, unspecified organism (principal); J96.01 Acute respiratory failure with hypoxia; G92 Toxic encephalopathy; R65.21 Severe sepsis with septic shock; G93.1 Anoxic brain damage, not elsewhere classified; N17.9 Acute kidney failure, unspecified; E87.0 Hyperosmolality and hypernatremia; I46.9 Cardiac arrest, cause unspecified; C50.919 Malignant neoplasm of unspecified site of unspecified female breast; Z88.8 Allergy status to other drugs, medicaments and biological substances; I10 Essential (primary) hypertension; Z82.49 Family history of ischemic heart disease and other diseases of the circulatory system; D69.59 Other secondary thrombocytopenia; D64.9 Anemia, unspecified; E87.8 Other disorders of electrolyte and fluid balance, not elsewhere classified
CPT/HCPCS: 36415; 36600; 70450; 71010; 71275; 74000; 78601; 80048; 80053; 81001; 82140; 82550; 82553; 82803; 82805; 82962; 83735; 84100; 84484; 85007; 85025; 85027; 85379; 85610; 86140; 87040; 87086; 87205; 93005; 93010; 93306; 94002; 94003; 95819; 96365; 96367; 96375; A9512; J0171; J0360; J1100; J1885; J2001; J2270; J2370; J2543; J3370; J3475; J3480; J7030; J7040; J7050; J7070; Q9967